=== PATIENT | female | born 1950 | race Caucasian/White ===

== ENCOUNTER 2022-01-24 12:07 | Emergency (ER) | payer MEDICARE, SELFPAY ==
[2022-01-24 12:15] VITALS: BP 140/61; PULSE 79; RESP 16; TEMP 36.9; O2SAT 98
--- NOTE | 2022-01-24 12:32 | ED.ALLEREA ---
HPI - Allergic Reaction General Chief complaint: Allergic Reaction Stated complaint: itchy on feet/hands Time Seen by Provider: 01/24/22 12:32 Source: patient Mode of arrival: ambulatory Limitations: no limitations History of Present Illness HPI narrative: 71-year-old female presented for complaint of lip swelling and bilateral cheek swelling, onset today. She endorses for about 5 days she has had intense itching to her hands and feet and about 4 days ago endorses tongue swelling and difficulty swallowing. She states at that time she took Benadryl and used her sleep apnea machine and symptoms resolved. But she endorses starting a new supplement, otherwise denies changes to soap, detergent, lotion or cream etc. Currently denies sob, wheezing, dizziness, nausea. Endorses hx latex allergy with similar symptoms in 2004. Related Data Home Medications Medication Instructions Recorded Confirmed albuterol sulfate 90 mcg/actuation 2 puff inhalation Q4-6H PRN 07/09/19 01/24/22 aerosol inhaler (ProAir HFA) Shortness Of Breath estradiol 0.01% (0.1 mg/gram) 1 gm vaginal WEEKLY 07/09/19 01/24/22 vaginal cream loratadine 10 mg tablet (Claritin) 10 mg PO DAILY 07/09/19 01/24/22 magnesium oxide 400 mg (241.3 mg 400 mg PO DAILY 07/09/19 01/24/22 magnesium) tablet (MagOx) vqmxhpgu-wcb-iage-FA-Ca carb-vit K 1 tablet PO DAILY 07/09/19 01/24/22 18 mg iron-400 mcg-500 mg tablet (One-A-Day Womens Formula) nebivolol 20 mg tablet (Bystolic) 20 mg PO DAILY 07/09/19 01/24/22 red yeast rice 600 mg capsule 600 mg PO DAILY 07/09/19 01/24/22 diltiazem HCl 240 mg 240 mg PO DAILY 07/10/19 01/24/22 capsule,extended release 24 hr (Cartia XT) telmisartan 80 mg tablet 80 mg PO DAILY 01/11/20 01/24/22 coenzyme Q10 75 mg capsule (Ultra 100 mg PO DAILY 05/05/20 01/24/22 CoQ10) potassium chloride 10 mEq 10 meq PO BID 05/05/20 01/24/22 capsule,extended release fluticasone fur. 100 mcg-umeclid 1 inh inhalation DAILY 08/21/21 01/24/22 62.5 mcg-vilant 25 mcg inhalat.powder (Trelegy Ellipta) fluticasone fur. 200 mcg-umeclid 1 ea inhalation DAILY 01/24/22 01/24/22 62.5 mcg-vilant 25 mcg inhalat.powder (Trelegy Ellipta) Allergies Allergy/AdvReac Type Severity Reaction Status Date / Time latex Allergy Severe SEVERE Verified 01/24/22 12:24 ITCHY, THEN AIRWAY DIFFICULTY, SWELLING propranolol [From Inderal LA] Allergy Severe bleeding Verified 01/24/22 12:24 Sulfa (Sulfonamide Allergy Severe BELLY PAIN Verified 01/24/22 12:24 Antibiotics) clarithromycin AdvReac Severe BEELLY PAIN Verified 01/24/22 12:24 MEPERIDINE HCL Allergy Severe N/V,HEADACH Uncoded 01/24/22 12:24 E MOXIFLOXACIN HCL Allergy Severe DIZZINESS Uncoded 01/24/22 12:24 TEGADERM Allergy Severe SKIN Uncoded 01/24/22 12:24 BREAKDOWN AND SCARRING OXYCODONE HCL AdvReac Severe IF Uncoded 01/24/22 12:24 TAKEN--NO RELIEF OF PAIN SYMPTOMS WHAT SO EVER Review of Systems Review of Systems: CONSTITUTIONAL: Denies body aches, fever, chills, or sweats. EYES: Denies visual changes, redness, or discharge. ENT: reports lip and facial swelling, Denies rhinorrhea, congestion, sore throat, or otalgia. CARDIOVASCULAR: Denies chest pain, palpitations, or edema. RESPIRATORY: Denies cough or dyspnea. GASTROINTESTINAL: Denies abdominal pain, nausea, vomiting, or diarrhea. GENITOURINARY: Denies dysuria or hematuria. SKIN: reports rash, itching PMFSH Past Medical History Medical History Breast implant removal status Swelling Family History Family History Sibling Family history of elevated blood lipids Mother Patient's mother is Family history of gastrointestinal disorder Family history of coronary artery disease Father Hypertension Family history of chronic obstructive pulmonary
[2022-01-24] MEDS: methylPREDNISolone SOD SUCC 125 MG VIAL IM (12:46)
== END 2022-01-24 13:05 | disposition home or self-care (01) ==
PROVIDERS: Emergency Provider Nurse Practitioner Family
DX: T78.3XXA Angioneurotic edema, initial encounter (principal); Z87.891 Personal history of nicotine dependence
CPT/HCPCS: 96372; 99213; G0463; J2930

== ENCOUNTER 2022-02-19 02:36 | Emergency (ER) | payer MEDICARE, SELFPAY ==
[2022-02-19] VITALS (16 sets, daily range): BP systolic 140–179; BP diastolic 60–84; PULSE 72–98; RESP 12–21; O2SAT 93–98
--- NOTE | ~2022-02-19 | XR_ITS ---
EXAMINATION: XR chest 1V portable DATE: 02/19/2022 03:10 INDICATION: Shortness of breath. TECHNIQUE: A single frontal view of the chest was obtained. COMPARISON: Chest 2 views 07/08/2014, CT abdomen and pelvis 01/26/2018 FINDINGS: There are airspace opacities in the mid and lower lung zones with a basilar predominance. T here are small pleural effusions. No pneumothorax. The heart size is normal. There are changes of pos terior fusion procedure in thoracolumbar spine. IMPRESSION: 1. Airspace opacities in the mid and lower lung zones, consistent with atelectasis versus pneumonia. 2. Small pleural effusions. Reviewed, dictated and finalized at location A. IMPRESSION: 1. Airspace opacities in the mid and lower lung zones, consistent with atelecta sis versus pneumonia. 2. Small pleural effusions.
[2022-02-19] MEDS: EPINEPHrine HCL INJ 1 MG/ML AMPUL 0.3 MG IM (02:47)
[2022-02-19] MEDS: FAMOTIDINE 20 MG/2 ML VIAL IV PUSH (02:47)
[2022-02-19] MEDS: diphenhydrAMINE HCl INJ 50 MG/ML VIAL IV PUSH (02:48)
[2022-02-19] MEDS: methylPREDNISolone SOD SUCC 125 MG VIAL IV PUSH (02:48)
[2022-02-19 03:02] LABS: Basophils Absolute Auto 0.1 K/mm3 (0.0-0.1); Basophils Percent Auto 1.1 % (0.2-1.2); Eosinophils Absolute Auto 0.4 K/mm3 (0-0.3); Eosinophils Percent Auto 5.7 % (0-4.4); Hematocrit 42.5 % (37.0-47.0); Hemoglobin 13.3 g/dL (12.0-15.0); Immature Granulocyte Absolute 0.03 K/mm3 (0.00-0.031); Immature Granulocyte Percent A 0.4 % (0-0.5); Lymphocytes Absolute Auto 2.25 K/mm3 (0.9-3.2); Lymphocytes Percent Auto 30.7 % (18.3-44.2); Mean Corpuscular HGB Conc 31.3 g/dl (32-36); Mean Corpuscular Hemoglobin 29.2 pg (26-34); Mean Corpuscular Volume 93.4 fl (80-100); Mean Platelet Volume 11.3 fl (7.4-10.4); Monocytes Absolute Auto 0.8 K/mm3 (0.1-0.6); Monocytes Percent Auto 11.4 % (2.6-8.5); Neutrophils Absolute Auto 3.7 K/mm3 (1.3-6.7); Neutrophils Percent Auto 50.7 % (45.5-73.1); Platelet Count Result 221 k/mm3 (150-375); Red Blood Count 4.55 M/mm3 (4.2-5.4); Red Cell Distribution Width 14.6 % (11.5-14.5); White Blood Count 7.3 K/mm3 (4.5-10.0)
[2022-02-19 03:12] LABS: Anion Gap 5 mmol/L (8-16); Blood Urea Nitrogen 20 mg/dL (7-17); Calcium 8.9 mg/dL (8.4-10.2); Carbon Dioxide 29 mmol/L (22-30); Chloride 105 mmol/L (98-107); Estimated Glomerular Filt Rate > 60; Glucose 113 mg/dL (65-110); Potassium 4.1 mmol/L (3.4-5.0); Sodium 139 mmol/L (137-145)
--- NOTE | 2022-02-19 03:34 | ED.ALLEREA ---
HPI - Allergic Reaction General Chief complaint: Allergic Reaction Stated complaint: allergic rxn Time Seen by Provider: 02/19/22 02:38 History of Present Illness HPI narrative: Patient is a 71-year-old female who presents ER with swelling of her tongue. She noticed it this evening for going to bed and woke up and it was much worse. She has difficulty talking due to its size. No difficulty breathing or swallowing. She reports over the last couple weeks she has been having pruritus of her arms. She is also been seen in an urgent care for angioedema of her lips. She thought it was related to a supplement she was taking to cleanse her liver. She has not been taking that medication and has also finished a prednisone treatment. Patient has not taken any treatment medications for her symptoms. Patient has been taking Pepcid and Benadryl for her itching after her previous diagnosis of angioedema. Related Data Home Medications Medication Instructions Recorded Confirmed albuterol sulfate 90 mcg/actuation 2 puff inhalation Q4-6H PRN 07/09/19 01/28/22 aerosol inhaler (ProAir HFA) Shortness Of Breath loratadine 10 mg tablet (Claritin) 10 mg PO DAILY 07/09/19 01/28/22 magnesium oxide 400 mg (241.3 mg 400 mg PO DAILY 07/09/19 01/28/22 magnesium) tablet (MagOx) ockfvltz-ozs-joiy-FA-Ca carb-vit K 1 tablet PO DAILY 07/09/19 01/28/22 18 mg iron-400 mcg-500 mg tablet (One-A-Day Womens Formula) nebivolol 20 mg tablet (Bystolic) 20 mg PO DAILY 07/09/19 01/28/22 diltiazem HCl 240 mg 240 mg PO DAILY 07/10/19 01/28/22 capsule,extended release 24 hr (Cartia XT) coenzyme Q10 75 mg capsule (Ultra 100 mg PO DAILY 05/05/20 01/28/22 CoQ10) potassium chloride 10 mEq 10 meq PO BID 05/05/20 01/28/22 capsule,extended release fluticasone fur. 200 mcg-umeclid 1 ea inhalation DAILY 01/24/22 01/28/22 62.5 mcg-vilant 25 mcg inhalat.powder (Trelegy Ellipta) Allergies Allergy/AdvReac Type Severity Reaction Status Date / Time latex Allergy Severe SEVERE Verified 01/28/22 09:43 ITCHY, THEN AIRWAY DIFFICULTY, SWELLING propranolol [From Inderal LA] Allergy Severe bleeding Verified 01/28/22 09:43 Sulfa (Sulfonamide Allergy Severe BELLY PAIN Verified 01/28/22 09:43 Antibiotics) clarithromycin AdvReac Severe BEELLY PAIN Verified 01/28/22 09:43 MEPERIDINE HCL Allergy Severe N/V,HEADACH Uncoded 01/28/22 09:43 E MOXIFLOXACIN HCL Allergy Severe DIZZINESS Uncoded 01/28/22 09:43 TEGADERM Allergy Severe SKIN Uncoded 01/28/22 09:43 BREAKDOWN AND SCARRING OXYCODONE HCL AdvReac Severe IF Uncoded 01/28/22 09:43 TAKEN--NO RELIEF OF PAIN SYMPTOMS WHAT SO EVER Review of Systems Review of Systems: All systems reviewed & are unremarkable except as noted in HPI and below Constitutional: Constitutional: Denies chills and Denies fever(s) ENT: Denies dysphagia, Denies nasal congestion and Denies sore throat Comments: Tongue swelling Cardiovascular: Cardiovascular: Denies chest pain, Denies rapid heart rate and Denies radiating jaw, neck or arm pain Respiratory: Respiratory: Denies cough, Denies dyspnea and Denies wheezing Gastrointestinal: Gastrointestinal: Denies abdominal pain, Denies nausea and Denies vomiting Integumentary/Breasts: Skin/Breast: Reports pruritus, Denies erythema, Denies rash and Denies skin ulcer PMFSH Past Medical History Medical History (Updated 02/19/22 @ 06:34 by Kendall Davey MD) Allergic rhinitis, unspecified Breast implant removal status COPD (chronic obstructive pulmonary disease) Essential (primary) hypertension Gastro-esophageal reflux disease without esophagitis Hx of breast cancer Malignant neoplasm of endometrium Other nonrheumatic mitral valve disorders Sleep apnea, unspecified Swelling Surgical History Surgical History (Updated 02/19/22 @ 03:37 by Kendall Davey MD) Status post total right knee replacement
== END 2022-02-19 07:04 | disposition home or self-care (01) ==
PROVIDERS: Emergency Provider Emergency Medicine; PCP Internal Medicine
DX: T78.3XXA Angioneurotic edema, initial encounter (principal); J44.9 Chronic obstructive pulmonary disease, unspecified; I10 Essential (primary) hypertension; I34.8 Other nonrheumatic mitral valve disorders; K21.9 Gastro-esophageal reflux disease without esophagitis; G47.30 Sleep apnea, unspecified; Z85.3 Personal history of malignant neoplasm of breast; Z85.44 Personal history of malignant neoplasm of other female genital organs; Z96.651 Presence of right artificial knee joint; Z87.891 Personal history of nicotine dependence
CPT/HCPCS: 36415; 71045; 80048; 85025; 96372; 96374; 96375; 99284; J0171; J1200; J2930

== ENCOUNTER 2022-05-24 11:13 | Emergency (ER) | payer MEDICARE, SELFPAY ==
[2022-05-24 11:24] VITALS: BP 144/87; PULSE 70; RESP 18; TEMP 36.4; O2SAT 100
--- NOTE | 2022-05-24 11:44 | ED.FEMALEGU ---
HPI - Female Genitourinary General Chief complaint: Upper Respiratory Infection Stated complaint: UTI Time Seen by Provider: 05/24/22 11:44 Source: patient, RN notes reviewed and old records reviewed Mode of arrival: ambulatory Limitations: no limitations History of Present Illness HPI Narrative: 71-year-old female presents to the [facility] with complaints of about a week of tingling low back pain that is different than her normal, increased of urgency more than her normal and burning with urination. Took Azo yesterday. Denies any chest pain or abdominal pain. Denies fevers. Denies incontinence Related Data Home Medications Medication Instructions Recorded Confirmed albuterol sulfate 90 mcg/actuation 2 puff inhalation Q4-6H PRN 07/09/19 05/24/22 aerosol inhaler (ProAir HFA) Shortness Of Breath loratadine 10 mg tablet (Claritin) 10 mg PO DAILY 07/09/19 05/24/22 magnesium oxide 400 mg (241.3 mg 400 mg PO DAILY 07/09/19 05/24/22 magnesium) tablet (MagOx) sfidmwxq-shk-ifgl-FA-Ca carb-vit K 1 tablet PO DAILY 07/09/19 05/24/22 18 mg iron-400 mcg-500 mg tablet (One-A-Day Womens Formula) nebivolol 20 mg tablet (Bystolic) 20 mg PO DAILY 07/09/19 05/24/22 diltiazem HCl 240 mg 240 mg PO DAILY 07/10/19 05/24/22 capsule,extended release 24 hr (Cartia XT) coenzyme Q10 75 mg capsule (Ultra 100 mg PO DAILY 05/05/20 05/24/22 CoQ10) potassium chloride 10 mEq 10 meq PO BID 05/05/20 05/24/22 capsule,extended release fluticasone fur. 200 mcg-umeclid 1 ea inhalation DAILY 01/24/22 05/24/22 62.5 mcg-vilant 25 mcg inhalat.powder (Trelegy Ellipta) Allergies Allergy/AdvReac Type Severity Reaction Status Date / Time latex Allergy Severe SEVERE Verified 05/24/22 11:29 ITCHY, THEN AIRWAY DIFFICULTY, SWELLING propranolol [From Inderal LA] Allergy Severe bleeding Verified 05/24/22 11:29 Sulfa (Sulfonamide Allergy Severe BELLY PAIN Verified 05/24/22 11:29 Antibiotics) telmisartan Allergy Severe Swelling Verified 05/24/22 11:29 of Lip/Tongue/Throat clarithromycin AdvReac Severe BEELLY PAIN Verified 05/24/22 11:29 MEPERIDINE HCL Allergy Severe N/V,HEADACH Uncoded 05/24/22 11:29 E MOXIFLOXACIN HCL Allergy Severe DIZZINESS Uncoded 05/24/22 11:29 TEGADERM Allergy Severe SKIN Uncoded 05/24/22 11:29 BREAKDOWN AND SCARRING OXYCODONE HCL AdvReac Severe IF Uncoded 05/24/22 11:29 TAKEN--NO RELIEF OF PAIN SYMPTOMS WHAT SO EVER Review of Systems Review of Systems: All systems reviewed & are unremarkable except as noted in HPI and below Constitutional: Constitutional: Reports no additional constitutional complaints, Denies chills and Denies fatigue Eyes: Eyes: Reports no additional eye complaints ENT: Reports system reviewed and no additional complaints, except as documented Cardiovascular: Cardiovascular: Reports no additional cardiovascular complaints Respiratory: Respiratory: Reports no additional respiratory complaints Gastrointestinal: Gastrointestinal: Reports no additional gastrointestinal complaints, Denies abdominal pain, Denies diarrhea, Denies nausea and Denies vomiting Genitourinary: Genitourinary: Reports as per HPI (Urinary frequency, cloudy urine), Reports hematuria, Reports dysuria, Denies flank pain, Denies urinary incontinence, Reports urinary urgency and Denies vaginal discharge Musculoskeletal: Musculoskeletal: Reports no additional musculoskeletal complaints and Denies back pain Integumentary/Breasts: Skin/Breast: Reports system reviewed and no additional complaints, except as docu Neurologic: Reports system reviewed and no additional complaints, except as documented Psychiatric: Psychiatric: Reports no additional psychiatric complaints Endocrine: Endocrine: Denies fatigue Allergic/Immunologic: Allergic/Immunologic: Reports no additional allergic/immunologic complaints PMFSH Past Medical History Medi
== END 2022-05-24 12:19 | disposition home or self-care (01) ==
PROVIDERS: Emergency Provider Nurse Practitioner; PCP Internal Medicine
DX: N39.0 Urinary tract infection, site not specified (principal); Z87.891 Personal history of nicotine dependence; J44.9 Chronic obstructive pulmonary disease, unspecified; I10 Essential (primary) hypertension; K21.9 Gastro-esophageal reflux disease without esophagitis; Z85.3 Personal history of malignant neoplasm of breast; Z96.651 Presence of right artificial knee joint; Z85.42 Personal history of malignant neoplasm of other parts of uterus
CPT/HCPCS: 81003; 87077; 87086; 87186; 99213; G0463

== ENCOUNTER 2022-06-07 12:58 | Outpatient (CLI) | payer MEDICARE, SELFPAY ==
[2022-06-07 13:52] LABS: Appearance Urine Clear (Clear); Bilirubin Urine Negative (Negative); Blood Urine Negative (Negative); Color Urine Yellow (Yellow); Glucose Urine UA Negative (Negative); Ketones Urine Negative (Negative); Leukocyte Esterase Ur Trace LEU/UL (Negative); Nitrate Urine Negative (Negative); Protein Urine Negative (Negative); Urobilinogen Urine 0.2 mg/dL (<2.0); pH Urine 5.5 (5.0-9.0)
[2022-06-07 14:08] LABS: Mucus Urine Rare /lpf; RBC Urine 0-2 /hpf (0-2); Squamous Epithelial Cell Urine Few /hpf (Few); WBC Urine 0-3 /hpf
[2022-06-07 14:15] LABS: Add Urine Microscopic? YES
== END 2022-06-07 12:59 | disposition home or self-care (01) ==
LOC: ANHLAB 13:00
PROVIDERS: PCP Internal Medicine; Visit Provider Internal Medicine
DX: R30.0 Dysuria (principal)
CPT/HCPCS: 81001

== ENCOUNTER 2022-08-30 08:26 | Emergency (ER) | payer MEDICARE, SELFPAY ==
--- NOTE | 2022-08-30 08:36 | ED.FEMALEGU ---
HPI - Female Genitourinary General Chief complaint: Urogenital-Female Stated complaint: UTI Time Seen by Provider: 08/30/22 08:41 Source: patient, RN notes reviewed and old records reviewed Mode of arrival: ambulatory Limitations: no limitations History of Present Illness HPI Narrative: 71-year-old female presents to the [facility] with complaints of urinary symptoms. Patient reports burning with urination that started last night. Noticed some blood in her urine as well as increased frequency. Denies chest pain or abdominal pain. No CVA tenderness. Denies fevers. Patient unable to take Cipro/Levaquin due to a history of tendon rupture Patient states that she did fine with the Bactrim last time in May. MD elicited complaint: UTI Onset (ago): hour(s) (12) Patient : No Related Data Home Medications Medication Instructions Recorded Confirmed albuterol sulfate 90 mcg/actuation 2 puff inhalation Q4-6H PRN 07/09/19 08/30/22 aerosol inhaler (ProAir HFA) Shortness Of Breath loratadine 10 mg tablet (Claritin) 10 mg PO DAILY 07/09/19 08/30/22 magnesium oxide 400 mg (241.3 mg 400 mg PO DAILY 07/09/19 08/30/22 magnesium) tablet (MagOx) yrivbiru-zcx-mubr-FA-Ca carb-vit K 1 tablet PO DAILY 07/09/19 08/30/22 18 mg iron-400 mcg-500 mg tablet (One-A-Day Womens Formula) nebivolol 20 mg tablet (Bystolic) 20 mg PO DAILY 07/09/19 08/30/22 diltiazem HCl 240 mg 240 mg PO DAILY 07/10/19 08/30/22 capsule,extended release 24 hr (Cartia XT) coenzyme Q10 75 mg capsule (Ultra 100 mg PO DAILY 05/05/20 08/30/22 CoQ10) potassium chloride 10 mEq 10 meq PO BID 05/05/20 08/30/22 capsule,extended release fluticasone fur. 200 mcg-umeclid 1 ea inhalation DAILY 01/24/22 08/30/22 62.5 mcg-vilant 25 mcg inhalat.powder (Trelegy Ellipta) Allergies Allergy/AdvReac Type Severity Reaction Status Date / Time latex Allergy Severe SEVERE Verified 08/30/22 08:33 ITCHY, THEN AIRWAY DIFFICULTY, SWELLING propranolol [From Inderal LA] Allergy Severe bleeding Verified 08/30/22 08:33 telmisartan Allergy Severe Swelling Verified 08/30/22 08:33 of Lip/Tongue/Throat clarithromycin AdvReac Severe BEELLY PAIN Verified 08/30/22 08:33 MEPERIDINE HCL Allergy Severe N/V,HEADACH Uncoded 08/30/22 08:33 E MOXIFLOXACIN HCL Allergy Severe DIZZINESS Uncoded 08/30/22 08:33 TEGADERM Allergy Severe SKIN Uncoded 08/30/22 08:33 BREAKDOWN AND SCARRING OXYCODONE HCL AdvReac Severe IF Uncoded 08/30/22 08:33 TAKEN--NO RELIEF OF PAIN SYMPTOMS WHAT SO EVER Review of Systems Review of Systems: All systems reviewed & are unremarkable except as noted in HPI and below Constitutional: Constitutional: Reports no additional constitutional complaints Eyes: Eyes: Reports no additional eye complaints ENT: Reports system reviewed and no additional complaints, except as documented Cardiovascular: Cardiovascular: Reports no additional cardiovascular complaints, Denies chest pain and Denies dyspnea Respiratory: Respiratory: Reports no additional respiratory complaints, Denies chest congestion, Denies cough and Denies dyspnea Gastrointestinal: Gastrointestinal: Reports no additional gastrointestinal complaints, Denies abdominal pain, Denies nausea and Denies vomiting Genitourinary: Genitourinary: Reports as per HPI (Urinary frequency), Reports dysuria, Denies pelvic pain, Denies flank pain and Denies urinary incontinence Musculoskeletal: Musculoskeletal: Reports no additional musculoskeletal complaints Integumentary/Breasts: Skin/Breast: Reports system reviewed and no additional complaints, except as docu Neurologic: Reports system reviewed and no additional complaints, except as documented Psychiatric: Psychiatric: Reports no additional psychiatric complaints Allergic/Immunologic: Allergic/Immunologic: Reports no additional allergic/immunologic complaints
[2022-08-30 08:43] VITALS: BP 151/70; PULSE 75; RESP 16; TEMP 36.7; O2SAT 98
== END 2022-08-30 08:57 | disposition home or self-care (01) ==
PROVIDERS: Emergency Provider Nurse Practitioner; PCP Internal Medicine
DX: N39.0 Urinary tract infection, site not specified (principal); J44.9 Chronic obstructive pulmonary disease, unspecified; I10 Essential (primary) hypertension; K21.9 Gastro-esophageal reflux disease without esophagitis; Z85.3 Personal history of malignant neoplasm of breast; Z85.42 Personal history of malignant neoplasm of other parts of uterus; Z96.651 Presence of right artificial knee joint
CPT/HCPCS: 81003; 87086; 87088; 99213; G0463

== ENCOUNTER 2023-04-12 14:45 | Outpatient (CLI) | payer MEDICARE, SELFPAY ==
[2023-04-12 15:24] LABS: Appearance Urine Turbid (Clear); Bacteria Urine 3+ /hpf; Bilirubin Urine Negative (Negative); Blood Urine 3+ (Negative); Color Urine Dark Yellow (Yellow); Glucose Urine UA Negative (Negative); Ketones Urine Negative (Negative); Leukocyte Esterase Ur 3+ LEU/UL (Negative); Nitrate Urine Negative (Negative); Non Pathogenic Casts 0-2; Protein Urine 1+ mg/dL (Negative); RBC Urine >100 /hpf (0-2); Specific Grav Ur 1.018 (1.001-1.035); Squamous Epithelial Cell Urine Moderate /hpf (Few); WBC Urine >100 /hpf
[2023-04-12 15:51] LABS: Add Urine Microscopic? YES
== END 2023-04-12 14:46 | disposition home or self-care (01) ==
PROVIDERS: PCP Internal Medicine; Visit Provider Internal Medicine
DX: R31.9 Hematuria, unspecified (principal)
CPT/HCPCS: 81001; 87086; 87088

== ENCOUNTER 2024-06-11 14:22 | Outpatient (CLI) | payer MEDICARE, SELFPAY ==
--- NOTE | ~2024-06-11 | US_ITS ---
EXAMINATION: US venous doppler [facility] DATE: 06/11/2024 15:11 INDICATION: Lower limb localized edema. Lower limb pain and swelling. TECHNIQUE: Grayscale ultrasound images without and with compression and Doppler ultrasound images of the bilateral lower extremity veins were obtained. COMPARISON: None. FINDINGS: The visualized portions of right common femoral vein, profunda (deep) femoral vein, femoral vein, pop liteal vein, peroneal veins, and greater saphenous vein outflow are patent. There is thrombus in the right posterior tibial veins. The visualized portions of left common femoral vein, profunda femoral vein, peroneal veins, posterior tibial veins, and greater saphenous vein outflow are patent. There is thrombus in the left femoral v ein, popliteal vein, and gastrocnemius veins. IMPRESSION: 1. Deep vein thrombosis involving the right posterior tibial, left femoral, left popliteal, and left gastrocnemius veins. Reviewed, dictated and finalized at location A. R BRAKE OPERATOR IMPRESSION: 1. Deep vein thrombosis involving the right posterior tibial, left femoral, le ft popliteal, and left gastrocnemius veins.
--- NOTE | ~2024-06-11 | XR_ITS ---
Right foot Technique: AP, oblique, and lateral views were obtained. Clinical History: Pain COMPARISON: 03/07/2013 Findings: There is an acute fracture of the fifth metatarsal head, mildly displaced and probably mild ly comminuted.. There is stable orthopedic fusion across the first tarsometatarsal joint and Lisfranc joint region. Stable orthopedic screws transfixing the subtalar joint. There are mild degenerative c hanges of the talonavicular and naviculocuneiform articulations. There is mild degenerative change of the first MTP joint. Soft tissues are unremarkable. Impression: Acute, comminuted fracture of the fifth metatarsal head. Stable orthopedic fusions of the first TMT joint/Lisfranc joint region and subtalar joint. Reviewed, dictated and finalized at location . ENTICE INSTRUMENT TECHNICIAN Impression: Acute, comminuted fracture of the fifth metatarsal head. Stable orthopedic fusions of the first TMT joint/Lisfranc joint region and subt alar joint.
== END 2024-06-11 14:23 | disposition home or self-care (01) ==
PROVIDERS: PCP Internal Medicine; Visit Provider Internal Medicine
DX: I82.442 Acute embolism and thrombosis of left tibial vein (principal); I82.412 Acute embolism and thrombosis of left femoral vein; I82.432 Acute embolism and thrombosis of left popliteal vein; I82.462 Acute embolism and thrombosis of left calf muscular vein; S92.351A Displaced fracture of fifth metatarsal bone, right foot, initial encounter for closed fracture; X58.XXXA Exposure to other specified factors, initial encounter; Z98.1 Arthrodesis status
CPT/HCPCS: 73630; 93970

== ENCOUNTER 2024-07-25 13:06 | Outpatient (CLI) | payer MEDICARE, SELFPAY ==
--- NOTE | ~2024-07-25 | XR_ITS ---
XR chest 2V Ordering provider: Gerardo Dioxn DO History: 73 years Female with . J18.9 - Pneumonia, unspecified organism . Comparison: None. FINDINGS: MEDIASTINUM: The cardiac silhouette is moderately enlarged. Congestive connie. LUNGS: No effusions or pneumothorax. Opacification the lung bases seen. Bilateral interstitial thickening. Underlying emphysematous change s. OTHER: No free air under the diaphragm. Postoperative changes in the spine. IMPRESSION: Bibasilar atelectasis versus pneumonia. Cardiomegaly with cardiac decompensation and pulmonary edema. Clinical correlation advised. Reviewed, dictated and finalized at location A. SHER DIAL IMPRESSION: Bibasilar atelectasis versus pneumonia. Cardiomegaly with cardiac decompensation and pulmonary edema. Clinical correlat ion advised.
== END 2024-07-25 13:07 | disposition home or self-care (01) ==
PROVIDERS: PCP Internal Medicine; Visit Provider Internal Medicine
DX: J18.9 Pneumonia, unspecified organism (principal); I51.7 Cardiomegaly; I51.89 Other ill-defined heart diseases; J81.1 Chronic pulmonary edema
CPT/HCPCS: 71046

== ENCOUNTER 2024-11-30 15:09 | Outpatient (CLI) | payer MEDICARE, SELFPAY ==
--- NOTE | ~2024-11-30 | US_ITS ---
BILATERAL LOWER EXTREMITY VENOUS ULTRASOUND Ordering provider: Mango Martel APRN History: . I82.403 - Acute embolism and thrombosis of unspecified de... . Comparison: June 11, 2024 FINDINGS: RIGHT LOWER EXTREMITY VEINS: --COMMON FEMORAL: Patent and free of thrombus. Normal compressibility, phasic flow and augmentation. --PROXIMAL SUPERFICIAL FEMORAL: Patent and free of thrombus. Normal compressibility, phasic flow and augmentation. --DISTAL SUPERFICIAL FEMORAL: Patent and free of thrombus. Normal compressibility, phasic flow and au gmentation. --POPLITEAL: Patent and free of thrombus. Normal compressibility, phasic flow and augmentation. --POSTERIOR TIBIAL: Patent and free of thrombus. Normal compressibility, phasic flow and augmentation . LEFT LOWER EXTREMITY VEINS: --COMMON FEMORAL: Patent and free of thrombus. Normal compressibility, phasic flow and augmentation. --PROXIMAL SUPERFICIAL FEMORAL: Thrombosed. --DISTAL SUPERFICIAL FEMORAL: Thrombosed. --POPLITEAL: Patent and free of thrombus. Normal compressibility, phasic flow and augmentation. --POSTERIOR TIBIAL: Patent and free of thrombus. Normal compressibility, phasic flow and augmentation . --Peroneal: Thrombosis. IMPRESSION: Left lower extremity DVT. Dr. Dixon was notified with the result of the patient at 4:30 PM on November 30, 2024. Reviewed, dictated and finalized at location A. IMPRESSION: Left lower extremity DVT. Dr. Dixon was notified with the result of the patient at 4:30 PM on November 30 025.
--- OUTSIDE RECORDS SUMMARY | 2024-11-30 15:12 | XMS_ITS | Clinical Summary ---
Author Organization [facility] Address [address] [place] [id number] Care Team Providers Care Technical Aide Name Role Phone Gerardo Dixon DO Primary Care Provider [phone] Social History Tobacco Use Types Packs/Day Years Used Date Smoking Tobacco: Never Assessed Comments Unknown Sex and Gender Information Value Date Recorded Sex Assigned at Not on file Legal Sex Female 4:59 PM CDT Gender Identity Not on file Sexual Orientation Not on file Plan of Treatment Health Maintenance Due Date Last Done Comments Colorectal Cancer Screening Colonoscopy (10 Years) 1950 Hepatitis C 1968 DTaP, Tdap and Td Vaccines ( 1 - Tdap) 10/15/1994 10/14/1994 Pneumococcal Vaccine: 50+ Ye ars (1 of 1 - PCV) 2000 Zoster Vaccines (1 of 2) 2000 Annual Medicare Wellness Visit 10/14/2015 Dexa Scan (General) 10/14/2015 Mammogram Screening 10/30/2023 10/29/2021 COVID-19 Vaccine ( - 2023-2 5 season) 2024 PHQ-2 (Physician [place]) 08/08/2024 RSV Immunization or 60+ Years (1 - 1-dose 75+ series) 2025 Meningococcal B Vaccine Aged Out No l onger eligible based on patient's age to complete this topic Meningococcal Vaccine Aged Out No rikki [place] eligible based on patient's age to complete this topic RSV Immunizations Under 20 Months Aged Out No longer eligible based on patient's age to complete this topic Insurance [employer] Care Teams Technical Aide Relationship Specialty Start Date End Date Gerardo Dixon DO [address] [address] PCP - General INTERNAL MEDICINE 06/13/24
--- OUTSIDE RECORDS SUMMARY | 2024-11-30 15:13 | XMS_ITS | Encounter Summary ---
Author Organization [facility] Address [address] [place] [address] Care Team Providers Care Supervisor Pipelines Name Role Phone Sofia Roper MD Unavailable [phone] Fabian Lizama MD Unavailable [phone] Gerardo Dixon DO Primary Care Provider [phone] Giorgi Beyer MD Unavailable [phone] Lore Richardson Unavailable [phone] Encounter Details Date Type Department Care Team (Late st Contact Info) Description 06/16/2020 Telephone [facility] [address] [place] [address] Kwaku Najera, RT Social History Tobacco Use Types Packs/Day Years Used Date Smoking Tobacco: Never Smokeless Tobacco: Never Alcohol Use Standard Drinks/Week Comments Yes 0 (1 standard drink = 0.6 oz pur e alcohol) Rare social occasion Comments No Sex and Gender Information Value Date Recorded Sex Assigned at Not on file Legal Sex Female 2:11 AM [employer] Gender Identity Female 08/26/2021 10:29 AM [employer] Sexual Orientation Not on file documented as of this encounter Plan of Treatment Not on file documented as of this encounter Visit Diagnoses Not on filedocumented in this encounter Additional Health Concerns Infection Onset Date Last Indicated Resolved Time C. difficile suspected 09/28/2024 09/28/202409/29 3:05 AM [employer] [place] documented as of this encounter Care Teams Supervisor Pipelines Relationship Specialty Start Date End Date Gerardo Dixon DO [address] [address] PCP - General Internal Medicine 05/09/24 Sofia Roper MD Urologist Urology 10/30/18 Fabian Lizama MD Referring Physician Pulmonary Disease 04/01/20 Giorgi Beyer MD [address] [address] Consulting Physician Cardiovascular Disease 08/30/24 Lore Richardson PA [address] [place] [id number] Orthopedic Surgery 09/11/24 documented as of this encounter
--- OUTSIDE RECORDS SUMMARY | 2024-11-30 15:13 | XMS_ITS | Encounter Summary ---
Author Organization [facility] Healthcare Address [address] [place] [address] Care Team Providers Care [employer] Name Role Phone Sofia Roper MD Unavailable [phone] Fabian Lizama MD Unavailable [phone] Gerardo Dixon DO Primary Care Provider [phone] Giorgi Beyer MD Unavailable [phone] Lore Richardson Unavailable [phone] Reason for Visit * Reason Comments Leg Swelling * Auth/Cert (Routine) Specialty Diagnoses / Procedures Referred By Annie t Referred To Contact Referral ID Status Reason Start Date Expiration Date Visits Re quested Visits Authorized [id number] 1 1 Encounter Details Date Type Department Care Team (Latest Contact Info) Description 11/15/2024 12:00 PM CDT Home Care Visit [address] [address] [address] [place] [address] [place] [address] [address] SN OASIS RECERTIFICATION Social History Tobacco Use Types Packs/Day Years Used Date Smoking Tobacco: Never Smokeless Tobacco: Never Alcohol Use Standard Drinks/Week Comments Yes 0 (1 standard drink = 0.6 oz pur e alcohol) Rare social occasion OASIS D0700: Social Isolation Answer Da te Recorded Frequency of experiencing loneliness or isolatio n Rarely 11/15/2024 OASIS A1250: Transportation Answer Date Recorded Lack of Transportation (Medical) No 09/18/2024 Lack of Transportation (Non-Medical) No 09/18/2024 Patient Unable or Declines to Respond No 09/18/2024 OASIS B1300: Health Literacy Answer Taran e Recorded Frequency of needing help to read materials from doctor or pharmacy Never 09/18/2024 [facility] Utilities Answer Date Recorded In the past 12 months has th e electric, gas, oil, or water company threatened to shut off services in your home? No 09/12/2024 Social Connection and Isolation Panel [NHANES] A nswer Date Recorded In a typical week, how many times do you talk on the phone with family, friends, or neighbors? Three times a week 09/12/19 How often do you get togethe r with friends or relatives? Three times a week 09/12/2024 How often do you attend chur ch or spiritism services? 1 to 4 times per year 09/12/2024 Do you belong to any clubs o r organizations such as holiness groups, unions, fraternal or athletic groups, or school groups? No 09/12/2024 How often do you attend meet ings of the clubs or organizations you belong to? Never 09/12/2024 Are you , , di vorced, , never , or living with a partner? 09/12/2024 AUDIT-C Answer Date Recorded Q1: How often do you have a drink containing alc ohol? Monthly or less 09/11/2024 Q2: How many drinks containi ng alcohol do you have on a typical day when you are drinking? 1 or 2 09/11/2024 Q3: How often do you have si x or more drinks on one occasion? Never 09/11/2024 Overall Financial Resource Strain (CARDIA) Answe r Date Recorded How hard is it for you to pa y for the very basics like food, housing, medical care, and heating? Not hard at all 09/12/2024 Hunger Vital Sign Answer Date Recorded Within the past 12 months, y ou worried that your food would run out before you got the money to buy more. Never true 09/12/19 25 Within the past 12 months, t he food you bought just didn't last and you didn't have money to get more. Never true 09/12/2024 PRAPARE - Transportation Answer Date Re corded In the past 12 months, has l ack of transportation kept you from medical appointments or from getting medications? No 12/2024 In the past 12 months, has l ack of transportation kept you from meetings, work, or from getting things needed for daily living? No 09/12/2024 Housing Stability Vital Sign Answer Taran e Recorded In the last 12 months, was t here a time when you were not able to pay the mortgage or rent on time? No 09/12/2024 In the past 12 months, how m any times have you moved where you were living? 0 09/12/2024 [facility] were you [facility] or living in a custodial (including now)? No 09/12/2024 Personal Safety Answer Date Recorded Have you ever been in or are you currently in a harmful physical or emotional relationship or is someone making you feel afraid or unsafe? Denies 09/28/2024 Comments No Sex and Gender Information Value Date Recorded Sex Assigned at Not on file Legal Sex Female 2:11 AM PHONE MANAGER Gender Identity Female 08/26/2021 10:29 AM PHONE MANAGER Sexual Orientation Not on file documented as of this encounter Last Filed Vital Signs Vital Sign Reading Time Taken Comments Blood Pressure 150/90 11/15/2024 11:40 AM CDT Pulse 67 11/15/2024 11:40 AM CDT Temperature 36.2 C (97.2 F) 11/15/2024 11:40 AM CDT Respiratory Rate 20 11/15/2024 11:40 AM CDT Oxygen Saturation 99% 11/15/2024 11:40 AM CDT Inhaled Oxygen Concentration - - Weight 117.9 kg (260 lb) 11/15/2024 11:40 AM CDT Height - - Body Mass Index 43.27 11/01/2024 3:24 PM CDT documented in this encounter Miscellaneous Notes * Home Health/Infusion [facility] - Chana Morales, RN - 11/15/2024 11:18 AM CDT SITUATION Focus of Care: rt foot wound with hx osteomyelitis Caregivers available: Spouse lives in home BACKGROUND Pertinent Medical History/Hospitalizations: history of osteomyelitis of right foot - s/p I/D requiring IV antibiotics and wound care. Rt foot callus had been debrided several times by orthopedic. Referred to wound care clinic and requires wound care to rt foot 3x/week Prior Level of Functioning: Dependent for some ADLs, IADLs Current Living Conditions/Safety Hazards: Lives at home with spouse ASSESSMENT Abnormal assessment findings: Rt foot wounds x2 at 5th metatarsal base (lateral and plantar). Medication Issues: none Re-hospitalization risk: Low Barriers to care/social drivers: None noted RECOMMENDATIONS POC confirmed with Dr. Dixon Plan for my discipline: 3w8 Other disciplines ordered/recommended: none at this time Supply/HME/equipment needs or issues: none Follow ups needed: none noted * Quality Review - Julisa Alejandro - 11/15/2024 11:18 AM CDT M1810 - Dress Upper Body 1- some help 2- needs assist Changed from 1 to 2. Per ADL assessment patient requires stand by assist for upper body dressing. According to OASIS guidance, if patient requires standby assistance (a magazine designer) to dress safely or requires verbal cueing/reminders due to physical/ cognitive/environmental barriers to complete task safely, then Code 2. M1850 - Transferring 1- able w/ min assist 2- unable to transfer self Changed from 1 to 2. Per Musculoskeletal assessment patient requires supervision for ambulation and minimum assist for transfers.According to OASIS guidance, if patient needs an assisted device AND minimal human assistance due to physical/cognitive impairments to transfer safely, then Code 2. M1860 - Ambulation 2- w/ two hand device 3- only with supervision Changed from 2 to 3. Per Musculoskeletal assessment patient requires supervision for ambulation and minimum assist for transfers. According to OASIS guidance, if patient requires continuous supervision/assistance to ambulate safely due to physical/emotional impairments, then Code 3. M1033 - Risk for Hospitalization 7-Taking 5+ meds 5-Decline in mental/emotional/behavioral status;7-Taking 5+ meds Add Response 5. Patient has a cognitive/behavioral/emotional diagnoses/condition of Anxiety and Depression, although it's not clear if there has been a decline. If the patient has had a decline in this diagnosis, they are more likely to experience rehospitalization; and Response 5 would be appropriate. * Quality Review - Chana Morales RN - 11/15/2024 11:18 AM CDT Reviewed Quality Review note and I approve the recommended changes. * Home Health Plan for Next Visit - Chana Morales RN - 11/15/2024 11:18 AM CDT Reason for today's visit [place] recert, wound care, infection prevention education Discuss plan of care is unchanged with patient Discharge planning when goals met and skilled care services no longer needed Plan for next visit wound care, infection prevention education documented in this encounter Plan of Treatment Not on file documented as of this encounter Visit Diagnoses Not on filedocumented in this encounter Home Health Visit - Care Plan Visit Details Visit Type -SN OASIS Recerti fication Discipline -Correction Problems Problem Description Start Date Status Goals Interve ntions Medications Disciplines: Correction Management of IV Medications 09/18/2024 Active - 1 problem intervention scheduled/documen sushma in this visit Pressure Prevention Disciplines: Skilled Disciplines Pressure Prevention 09/18/2024 Active 1 goal linked to scheduled/documen sushma intervention 1 goal intervention scheduled/documen sushma in this visit Monitor patient's vital signs every home health visit Disciplines: Skilled Disciplines, SN, PT, OT, PHOTOGRAPHY COLORIST, CASHIER AND WAITER/WAITRESS Monitor patient's vital signs every home health visit. 09/18/2024 Active 1 goal linked to scheduled/documen sushma intervention 1 goal intervention scheduled/documen sushma in this visit Multidisciplinar y Case Conference Disciplines: Skilled Disciplines Concurrently discusses plan of treatment and coordinate patient centered care 09/18/2024 Active 1 goal linked to scheduled/documen sushma intervention Infection Prevention Disciplines: Skilled Disciplines Infection Prevention 09/18/2024 Active 1 goal linked to scheduled/documen sushma intervention 1 goal intervention scheduled/documen sushma in this visit Pain Disciplines: Core Disciplines Alteration in comfort 09/18/2024 Active 1 goal linked to scheduled/documen sushma intervention 1 goal intervention scheduled/documen sushma in this visit Fall Precautions/Safe ty Concerns Disciplines: Skilled Disciplines Fall precautions and general safety 09/18/2024 Active 1 goal linked to scheduled/documen sushma intervention 1 goal intervention scheduled/documen sushma in this visit Wound Education and Management Disciplines: Core Disciplines Knowledge deficit related to wound management and risk of infection. 10/02/2024 Active 1 goal linked to scheduled/documen sushma intervention 1 goal intervention scheduled/documen sushma in this visit Wound Care Disciplines: Core Disciplines, Skilled Disciplines Wound care needed #1 rt dorsal foot 10/02/2024 Active 1 goal linked to scheduled/documen sushma intervention 1 problem intervention scheduled/documen sushma in this visit Wound Care Disciplines: Core Disciplines Wound care needed #4 rt plantar foot, 5th metatarsal base 11/15/2024 Active 1 goal linked to scheduled/documen sushma intervention 1 goal intervention scheduled/documen sushma in this visit Goals Goal Associated Problem Outcome Goal Met? Visit Notes Prevent development of pressure injuries Description: detention goal: The patient will maintain intact skin and avoid the development of pressure injuries within 6 weeks Short term goal: The patient/caregiver will understand and adhere to pressure prevention interventions within 3 weeks Pressure Prevention Progressing No Measure vital signs during every home health visit during episode of care Description: Home caretaker resort to measure vital signs during every home health visit during episode of care. Monitor patient's vital signs every home health visit Progressing No Care team will coordinate care Description: Care team will coordinate care centered on patient needs throughout the episode of care. Multidisciplinary Case Conference Progressing No Verbalize signs of infection Description: Patient/caregiver will demonstrate knowledge of infection prevention strategies by verbalizing signs and symptoms of infection. Infection Prevention Progressing No Report that pain has been reduced or controlled Description: Patient/caregiver/family will verbalize satisfaction with the patients level of pain and symptom control. Pain Progressing No Demonstrate fall and safety precautions Description: Patient/caregiver maintains safe home environment as evidenced by remaining free from falls, injury due to falls, demonstrating safety precautions, and identifying strategies to reduce falls by 10/16/24 Fall Precautions/Safety Concerns Progressing No Knowledgeable of Wound Management Description: Patient/caregiver will be knowledgeable on management of wound and when to seek medical attention as evidenced by progressive wound healing and patient/caregiver ability to verbalize signs and symptoms to report to physician or Home Health Agency. Patient will remain free of infection and able to recognize signs of infection as long as alteration in skin integrity exists or until patient is discharged from home health services. Wound Education and Management Progressing No Progression towards healing Description: Wound #1 rt dorsal foot show progression towards healing by 11/01/24. Wound Care Progressing No Progression towards healing Description: Wound #4 rt plantar foot, metatarsal base show progression towards healing by 12/15/24 Wound Care Progressing No Interventions Intervention Associated Problem/Goal Status Variance Visit Notes Instruct on Medication Management Description: Instruct patient/caregiver in medication administration, purpose, dosages, preparation, scheduling, side effects, food/drug interactions, storage, drug allergies, and potential complications. TPN: Instruct patient/caregiver on the proper technique to add medications to the TPN bag. Medications instructed on: ANTIBIOTICS. Problem:Medications Completed Instructed patient on signs and symptoms related to medication regimen to report to provider. Assessed patient/caregiver ability to demonstrate management of medications safely Assessed patient/caregiver about ability to verbalize accurate dose/route/frequency /reason for medication Follow up needs: none, independent. Patient verbalizes understanding of medication management. Instruct on Pressure Prevention Description: Instruct patient/caregiver on inspecting the skin regularly for signs of impaired skin integrity, repositioning the patient on an individualized schedule according to the patient's tissue tolerance, skin condition, mobility, medical condition, and treatment goals. Avoid vigorous massage and emphasize the importance of increasing activity and mobility. Avoid using donut-shaped devices and foam cutouts for pressure redistribution. Determine if patient is using or needs a pressure reduction surface. Instruct patient/caregiver on using moisture barriers and absorbent pads/briefs as needed, avoiding prolonged skin contact with wet materials, and cleaning and drying skin thoroughly after incontinence episodes. If patient is malnourished instruct patient/caregiver on physician ordered diet, increased fluid intake if not contraindicated, and a list of possible protein sources to promote skin integrity. Problem:Pressure Prevention Goal:Prevent development of pressure injuries Completed Instructed patient/caregiver on pressure prevention including: repositioning patient and importance of increasing activity and mobility and Managing nutrition Patient verbalized understanding repositioning patient and importance of increasing activity and mobility and Managing nutrition Monitor Vital Signs Description: Monitor blood pressure, pulse, oxygen saturation, respirations Problem:Monitor patient's vital signs every home health visit Goal:Measure vital signs during every home health visit during episode of care Completed Completed. VSS. Educate Family on Infection Prevention Description: Instructed family on signs and symptoms of infection IE: fever, odor, change in color, increased amount of drainage, purulent drainage, warmth. Problem:Infection Prevention Goal:Verbalize signs of infection Completed Instruct on pain management techniques Description: Instruct in pharmacologic and nonpharmacologic pain management techniques. Problem:Pain Goal:Report that pain has been reduced or controlled Completed High Fall Risk Precautions Description: Instruct patient/caregiver to use proper lighting in all areas, stand/sit up slowly, use appropriate footwear when walking, use proper assistive devices, and to keep pathways clear of cords and clutter to prevent falls. Remove/secure throw rugs. Educate patient on medications and disease processes that increase fall risk, using corrective lenses as prescribed, placing hard to reach items within reach, what to do in the event of a fall and to report any falls to the home health agency. Problem:Fall Precautions/Safety Concerns Goal:Demonstrate fall and safety precautions Completed Instructed patient on fall risk prevention including: standing/sitting up slowly, using appropriate footwear when walking and keeping pathways clear of cords and clutter Patient verbalized understanding Educate on Wound Care Management Description: Instruct patient/caregiver on wound management including: ordered wound care, utilizing clean technique, appropriate hand hygiene, and disposal of dressings. Instruct patient/caregiver on nutrition and hydration needs for alt ered skin integrity, signs and symptoms of infection and/or wound deterioration to report to home health agency and or physician. Problem:Wound Education and Management Goal:Knowledgeable of Wound Management Completed Instructed patient/caregiver on wound management including current wound care orders Patient verbalized understanding current wound care orders Perform Dressing Change Description: Perform dressing change: Site #1 rt lateral foot, base 5th metatarsal Skilled Nurse, Physical Therapy, Occupational Therapy to perform dressing change as of 11/15/24, Frequency three times weekly and PRN for excess drainage or dislodgement of dressing. Wound care as follows: cleanse with soap and water or saline , pack hydrofera blue foam rope into wound bed - moisten hydrofera blue with saline after packing in wound bed, cover with foam dressing. Transcribed by Chana Morales RN from written wound care clinic orders from Marie ARAUJO with Dr Azael Roque 11/13/24 [id number] Problem:Wound Care Completed Clinician performed wound care per Physician's order dated 11/15/24. Patient tolerated well Perform dressing change Description: Perform dressing change: Site #1 rt plantar foot, base 5th metatarsal Skilled Nurse, Physical Therapy, Occupational Therapy to perform dressing change as of 11/15/24, Frequency three times weekly and PRN for excess drainage or dislodgement of dressing. Wound care as follows: cleanse with soap and water or saline , moisten hydrofera blue with saline and place hydrofera blue foam rope on wound bed, cover with foam dressing. Transcribed by Chana Morales RN from written wound care clinic orders from Marie ARAUJO with Dr Azael Roque 11/13/24 [id number] Problem:Wound Care Goal:Progression towards healing Completed Clinician performed wound care per Physician's order dated 11/15/24. Patient tolerated well documented in this encounter Care Teams [employer] Relationship Specialty Start Date End Date Javier DixoneDO [address] [facility] [address] [address] PCP - General Internal Medicine 05/09/24 Sofia Roper MD Urologist Urology 10/30/18 Fabian Lizama MD Referring Physician Pulmonary Disease 04/01/20 Giorgi Beyer MD [address] [facility] [address] [place] [address] Consulting Physician Cardiovascular Disease 08/30/24 Lore Richardson PA [address] [facility] [facility] [address] [place] [place] [id number] Orthopedic Surgery 09/11/24 documented as of this encounter
--- OUTSIDE RECORDS SUMMARY | 2024-11-30 15:13 | XMS_ITS | Data Portability ---
Author Organization [facility] OFFICE Address [address] [place] [address] Care Team Providers Care Treasury Analyst Name Role Phone KELLEY CAMILO Primary Care Provider Assessment Encounter Date Assessment Date Assessment LastModified by Organization Details LastModified Time 06/02/2023 06/02/2023 Patient Examined by AMBAR Ratliff, Also Documentation reviewed and approved by supervising physician [email or web address] Not available 06/02/2023 15:51:04 Plan of Treatment Reminders Order Date Submit Date Provider Last Modified By Organization Details Last Modified Time Details Appointments ESTABLISH ED PATIENT DETAILED 2024 01:45P M Giorgi Reyes i, MD Not available Not available Not available Lab None recorded. Referral None recorded. Procedures None recorded. Surgeries None recorded. Imaging None recorded. Medication Orders Jardiance 10 mg tablet 2023 024 [facility] [address] [facility], [place], [address], 02/04/2024 12:51:52 hydralazi ne 25 mg tablet 2022 023 [facility] [address] [facility], [place], [address], 06/05/2024 14:58:22 nebivolol 20 mg tablet 2022 023 [facility] [address], [address] [facility], [place], [address], 06/02/2023 15:54:59 diltiazem CD 240 mg capsule,e xtended release 24 hr 2022 023 LETITIA Thorne [facility] [address], [address], [place], [address], 06/02/2023 15:54:58 Patient TargetsNo targets recorded. Patient Instructions Encounter Date Encounter Id Patient Instructions Last Modified By Organization Details Last Modified Time 06/02/2023 [id number] Low cholesterol diet advised Low sodium diet advised. [email or web address] Not available 06/02/2023 15:54:48 06/05/2024 [id number] Weight loss 20 pounds Exercise advised Low cholesterol diet advised Low sodium diet advised. [email or web address] Not available 06/05/2024 15:20:48 Reason for Referral None Reported. Results Created Date Observation Date Name Description Value Unit Range Abnormal Flag Note LastModifiedBy Organization Detail LastModifiedTime 06/07/2006/02/2023 elect rocar diogr am No observ ation record ed. Not Available 2022 13:22:56 02/06/20 24 02/04/2024 elect rocar diogr am No observ ation record ed. Not Available 2023 11:11:22 03/18/20 24 03/13/2024 , [facility] ardio gram No observ ation record ed. [facility], [facility] [address] [address], [place], [address], 06/03/2024 09:48:11 09/01/19 25 08/30/2024 elect rocar diogr am No observ ation record ed. Not Available 2024 13:38:20 09/01/19 25 08/30/2024 XR, chest , 2 view No observ ation record ed. Not Available 2024 14:09:56 09/20/19 25 09/08/2024 rodriguez can cardi olite stres s test (PROC ) No observ ation record ed. Not Available 2024 19:13:53 Result Notes None recorded. Problems Name Problem SNOMED Code Status Onset Date Resolution Date Notes Provider Name and Address Organization Details Recorded Time Dyspnea on exertion 78402749 Active 2015 Levi Sifuentes [place], [place] - [facility] 6 00:27:13 Benign hyperten altaf 64388538 Active 2015 Levi Sifuentes [place], [place] - [facility] 6 00:27:19 Obstruct isauro sleep apnea syndrome 08464954 Active 2015 [facility] [place] [place] - [facility] 7 15:02:15 Malignan t tumor of breast 309335171 Active 2014 s/p resectio n Mark Can null, [place] - [facility] 8 15:21:58 Malignan t neoplasm of uterus 003330833 Active 2015 s/p resectio n Levi Sifuentes [place], [place] - [facility] 6 00:28:17 Scoliosi s deformit y of spine 645125561 Active 2015 Levi Sifuentes [place], [place] - [facility] 6 00:28:47 Chronic sinusiti s 81939259 Active 2015 Leiv Sifuentes [place], [place] - [facility] 6 00:29:57 Gastroes ophageal reflux disease 365959235 Completed 201504/14/2016 Mark doshi, [place] - [facility] 6 15:09:21 Asthma 445567360 Active 2015 Levi Sifuentes [place], [place] - [facility] 6 00:30:13 Obesity 352991661 Active 2015 Levi Sifuentes [place] - [facility] 6 00:30:20 Spinal injury 284035762 Active 2015 Levi Sifuentes [place], [place] - [facility] 6 00:30:34 Hyperlip idemia 11518842 Active 2015 Mark Can [place], [place] - [facility] 6 17:46:02 History of histopla smosis 47546472282 103 Active 2016 Mark doshi, [place] - [facility] 7 15:02:30 Chronic obstruct isauro pulmonar y disease 30420601 Active 2016 Mark Can [facility] 7 15:06:09 Chest discomfo rt 095409809 Active 2016 Mark doshi, [facility] 7 15:31:31 Anti-nuc lear factor detected 902636370 Active 2018 Mark Can [facility] 9 16:21:40 Problem Notes None recorded. Procedures Surgical History Date Name Laterality Status Provider Name and Address Organization Details Recorded Time Hysterectomy completed [facility] 11/12/2015 00:31:22 Mastectomy sleeve completed [facility] 11/12/2015 00:31:47 Anesth knee area surgery completed [facility] 11/12/2015 00:31:57 Imaging Results Imaging Date Name Status LastModified by Organization Details LastModified Time 06/02/2023 electrocardiogram completed Informa tion not available 06/07/2023 13:22:56 02/04/2024 electrocardiogram completed Informa tion not available 02/06/2024 11:11:22 03/13/2024 , echocardiogram completed [facility], [facility] [address] [address], [place], [address], 06/03/2024 09:48:11 08/30/2024 electrocardiogram completed Informa tion not available 09/01/2024 13:38:20 08/30/2024 XR, chest, 2 view completed Informa tion not available 09/01/2024 14:09:56 09/08/2024 lexiscan cardiolite stress test (PROC) completed Information not available 09/20/2024 19:13:53 Procedure Notes None recorded. Medical Equipment None Reported. Allergies Allergen ID Allergen Name Allergen Category Reaction Reaction Severity Criticality Documentation Date Start Date Code Code System Note Provider Name and Address Organization Details Recorded Time 79670 Product containin g angiotens in II receptor antagonis t (product) medicatio n Not available Not available Not available 04/01/2022 24948 008 SNOMED Sims [facility], [place] - [facility] 2 09:23:49 354 Latex (substanc e) environme nt,medica tion bradycard ia Not available Not available 11/12/2015 22066 8007 SNOMED Sims [facility], [place] - [facility] 6 00:38:13 Medications Name Sig Start Date Stop Date Status Note LastModified by Organization Details LastModified Time losartan 50 mg tablet 11/11 completed Not Available Not Available Not Available cyclobenz aprine 10 mg tablet TAKE 1/2 (ONE-LUCIA F) TABLET BY MOUTH THREE TIMES DAILY NEEDED FOR MUSCLE SPASM active Not Available Not Available No t Available amoxicill in 500 mg capsule TAKE FOUR CAPSULES BY MOUTH ONE HOUR BEFORE APPOINTM ENT 11/25 completed Not Available Not Available Not Available Qvar 80 mcg/actua tion Metered Aerosol oral inhaler Inhale 2 puffs twice a day by inhalati on route. 04/14 completed Not Available Not Available Not Available carvedilo l 6.25 mg tablet TAKE ONE TABLET BY MOUTH TWICE DAILY 04/14 completed Not Available Not Available Not Available prednison e 10 mg tablet 1 tab qd 11/29 completed Not Available Not Available Not Available doxycycli ne hyclate 100 mg capsule 02/11 completed Not Available Not Available Not Available paroxetin e 10 mg tablet TAKE 1/2 (ONE-LUCIA F) TABLET BY MOUTH ONCE DAILY active Not Available Not Available No t Available carvedilo l 12.5 mg tablet Take 1 tablet twice a day by oral route. 05/04 completed Not Available Not Available Not Available clindamyc in HCl 300 mg capsule lotion not capsule 02/11 completed Not Available Not Available Not Available Cardizem CD 360 mg capsule,e xtended release Take 1 capsule every day by oral route. 04/01 completed Not Available Not Available Not Available enalapril maleate 5 mg tablet 11/11 completed Not Available Not Available Not Available azithromy angelic 250 mg tablet TAKE 2 TABLETS BY MOUTH ON DAY 1, AND THEN TAKE 1 TABLET BY MOUTH ONCE A DAY ON DAY 2 THROUGH DAY 5 active Not Available Not Available No t Available aspirin 325 mg tablet Take 1 tablet every day by oral route. 08/13 completed Pt takes 4-6 tablets a day dependin g on pain. Not Available Not Available Not Available tizanidin e 4 mg tablet 03/01 completed No longer take it 11/09/18 : MA Not Available Not Available Not Available hydrocodo ne 5 mg-acetam inophen 325 mg tablet TAKE 1 TABLET BY MOUTH EVERY 6 HOURS NEEDED FOR PAIN UNCONTRO LLED BY OTHER MEDICATI ONS. YOU SHOULD BE CAREFUL NOT TO TAKE MORE THAN 4 GRAMS (1000 MG) OF ACETAMIN OPHEN IN A 24-HOUR PERIOD. 02/11 completed Not Available Not Available Not Available Claritin 10 mg tablet Take 1 tablet every day by oral route. 11/29 completed not taking Not Available Not Available Not Available diltiazem CD 240 mg capsule,e xtended release 24 hr TAKE 1 CAPSULE BY MOUTH ONCE DAILY IN THE MORNING active Not Available Not Available No t Available meloxicam 15 mg tablet 04/14 completed Not Available Not Available Not Available sucralfat e 1 gram tablet TAKE 1 TABLET BY MOUTH 4 TIMES DAILY 05/27 completed no longrt take Not Available Not Available Not Available lisinopri l 20 mg tablet Take 1 tablet every day by oral route. 03/01 completed Not Available Not Available Not Available prednison e 20 mg tablet TAKE 2 TABLETS BY MOUTH ONCE DAILY FOR 5 DAYS 09/01 completed Not Available Not Available Not Available isosorbid e mononitra te ER 30 mg tablet,ex tended release 24 hr Take 1 tablet every day by oral route. 03/23 completed pt is not taking this medicati on as of right now it caused hemmorag ing negative tests w urologis t 03/23/18 nl Not Available Not Available Not Available metoprolo l succinate ER 100 mg tablet,ex tended release 24 hr 11/11 completed Not Available Not Available Not Available hydralazi ne 25 mg tablet TAKE 1 TABLET BY MOUTH THREE TIMES DAILY 06/05 completed Not Available Not Available Not Available potassium chloride ER 10 mEq tablet,ex tended release Take 1 tablet by mouth twice daily active Not Available Not Available No t Available acetamino phen 300 mg-codein e 30 mg tablet 08/13 completed Not Available Not Available Not Available ciproflox acin 500 mg tablet 11/25 completed Not Available Not Available Not Available sulfameth oxazole 800 mg-trimet hoprim 160 mg tablet TAKE 1 TABLET BY MOUTH EVERY 12 HOURS active Not Available Not Available No t Available aspirin 81 mg tablet,de layed release Take 1 tablet every day by oral route. 05/04 completed Not Available Not Available Not Available carvedilo l 3.125 mg tablet 1 tbl BID 11/11 completed Not Available Not Available Not Available diltiazem 120 mg tablet Take 1 tablet every day by oral route. 04/01 completed Not Available Not Available Not Available magnesium oxide 400 mg (241.3 mg magnesium ) tablet TAKE 1 TABLET BY MOUTH ONCE DAILY DIRECTED active Not Available Not Available No t Available Cartia XT 120 mg capsule,e xtended release TAKE ONE CAPSULE BY MOUTH ONCE DAILY 05/04 completed Not Available Not Available Not Available cephalexi n 500 mg capsule TAKE 1 CAPSULE BY MOUTH EVERY 12 HOURS 11/25 completed Not Available Not Available Not Available oseltamiv ir 75 mg capsule TAKE 1 CAPSULE BY MOUTH EVERY 12 HOURS FOR 5 DAYS active Not Available Not Available No t Available lisinopri l 10 mg tablet Take 1 tablet every day by oral route as directed . 11/09 completed Not Available Not Available Not Available prednison e 50 mg tablet TAKE 1 TABLET BY MOUTH ONCE DAILY 05/27 completed Not Available Not Available Not Available telmisart an 80 mg tablet TAKE 1 TABLET BY MOUTH ONCE DAILY 02/23 completed no longrt take Not Available Not Available Not Available candesart an 16 mg tablet Take 1 tablet every day by oral route in the evening. 08/23 completed Not Available Not Available Not Available losartan 25 mg tablet 11/11 completed Not Available Not Available Not Available hydrochlo rothiazid e 12.5 mg capsule 11/11 completed Not Available Not Available Not Available nitroglyc eric 0.4 mg sublingua l tablet DISSOLVE ONE TABLET UNDER THE TONGUE EVERY 5 MINUTES NEEDED FOR CHEST PAIN. DO NOT EXCEED A TOTAL OF 3 DOSES IN 15 MINUTES 2021 active Not Available Not Available Not Avai lable monteluka st 10 mg tablet TAKE 1 TABLET BY MOUTH ONCE DAILY active Not Available Not Available No t Available mupirocin 2 % topical ointment 04/14 completed Not Available Not Available Not Available furosemid e 20 mg tablet TAKE ONE TABLET BY MOUTH ONCE DAILY IN THE MORNING 2021 active PRN Not Available Not Available Not Avai lable ergocalci ferol (vitamin D2) 1,250 mcg (50,000 unit) capsule Take 1 capsule every day by oral route as directed for 42 days. 02/11 completed Not Available Not Available Not Available ibuprofen 600 mg tablet Take 1 tablet 3 times a day by oral route as needed. 03/01 completed No longer take it 11/09/18 : MA Not Available Not Available Not Available cefuroxim e axetil 500 mg tablet TAKE 1 TABLET BY MOUTH EVERY 12 HOURS 06/01 completed Not Available Not Available Not Available estradiol 0.01% (0.1 mg/gram) vaginal cream 02/11 completed Not Available Not Available Not Available albuterol sulfate HFA 90 mcg/actua tion aerosol inhaler INHALE 2 PUFFS BY MOUTH 4 TIMES DAILY NEEDED active Not Available Not Available No t Available diltiazem 30 mg tablet 11/11 completed Not Available Not Available Not Available losartan 100 mg tablet TAKE 1 TABLET BY MOUTH ONCE DAILY 03/01 completed No longer take it 11/09/18 : MA Not Available Not Available Not Available amoxicill in 875 mg-potass ium clavulana te 125 mg tablet TAKE 1 TABLET BY MOUTH TWICE DAILY FOR 10 DAYS active Not Available Not Available No t Available Cartia XT 180 mg capsule,e xtended release Take 1 capsule every day by oral route. 08/10 completed Not Available Not Available Not Available Tylenol Extra Strength 500 mg tablet Take 2 tablets every 4 hours by oral route as directed . active Not Available Not Available No t Available clindamyc in 1 % lotion 06/01 completed Not Available Not Available Not Available Mucinex 600 mg tablet, extended release Take 1 tablet every day by oral route as needed. 08/04 completed Not Available Not Available Not Available Co Q-10 100 mg capsule Take every day by oral route. 02/23 completed Not Available Not Available Not Available Flexeril 5 mg tablet Take 0.5 tablets 3 times a day by oral route as needed. 11/11 completed Not Available Not Available Not Available potassium chloride ER 10 mEq tablet,ex tended release(p art/cryst ) TAKE 1 TABLET BY MOUTH TWICE DAILY 02/11 completed Not Available Not Available Not Available metoprolo l tartrate 25 mg tablet 11/11 completed Not Available Not Available Not Available nitrofura ntoin monohydra te/macroc rystals 100 mg capsule 05/04 completed Not Available Not Available Not Available Flovent HFA 110 mcg/actua tion aerosol inhaler Inhale 2 puffs twice a day by inhalati on route as directed for 30 days. 03/23 completed Not Available Not Available Not Available chlorhexi dine gluconate 0.12 % mouthwash 08/04 completed Not Available Not Available Not Available coenzyme Q10 11/25 completed Not Available Not Available Not Available Glucosami ne 1 tab qd 08/04 completed No longer take it 11/09/18 : MA Not Available Not Available Not Available Carafate 05/29 completed 4 tablets/ day Not Available Not Available Not Available Daily Vitamin Formula 1 tab qd 06/01 completed Not Available Not Available Not Available ranolazin e ER 500 mg tablet,ex tended release,1 2 hr Take 1 tablet twice a day by oral route. 03/01 completed No longer take it 11/09/18 : MA Not Available Not Available Not Available red yeast rice 600 mg capsule Take 1 capsule twice a week by oral route as directed . 08/13 completed Not Available Not Available Not Available MoviPrep 100 gram-7.5 gram-2.69 1 gram oral powder packet 11/25 completed Not Available Not Available Not Available hydrochlo rothiazid e 12.5 mg tablet Take 1 tablet every day by oral route. 04/14 completed Not Available Not Available Not Available Ranexa 1,000 mg tablet,ex tended release Take 1 tablet twice a day by oral route. 12/22 completed Not Available Not Available Not Available diclofena c epolamine 1.3 % transderm al 12 hour patch UNWRAP AND APPLY 1 PATCH TO DRY INTACT SKIN ONCE DIRECTED active Not Available Not Available No t Available Coricidin HBP Chest Congestio n-Cough 10 mg-200 mg capsule Take by oral route as needed. 08/04 completed Not Available Not Available Not Available Bystolic 10 mg tablet Take 1 tablet twice a day by oral route. 07/17 completed Not Available Not Available Not Available Bystolic 5 mg tablet Take 1 tablet every day by oral route. 05/04 completed Not Available Not Available Not Available Align (B. is) 4 mg capsule Take every day by oral route as needed. 11/25 completed Not Available Not Available Not Available nebivolol 20 mg tablet Take 1 tablet by mouth once daily active Not Available Not Available No t Available B12 1 tab qd 06/01 completed Not Available Not Available Not Available Dulera 200 mcg-5 mcg/actua tion HFA aerosol inhaler Inhale 2 puffs twice a day by inhalati on route as directed . 05/04 completed Not Available Not Available Not Available Probiotic Plexus ProBio 1 tab qd 03/05 completed pt. no longer takes Not Available Not Available Not Available sodium,po tassium,m ag sulfates 17.5 gram-3.13 gram-1.6 gram oral soln TAKE 354ML BY MOUTH ONCE FOR 1 DOSE active Not Available Not Available No t Available magnesium 400 mg (as magnesium oxide) capsule Take 1 capsule every day by oral route as directed . 08/04 completed Not Available Not Available Not Available Eliquis 5 mg tablet TAKE 1 TABLET BY MOUTH TWICE DAILY active Not Available Not Available No t Available Jardiance 10 mg tablet Take 1 tablet every day by oral route. active Not Available Not Available No t Available Breo Ellipta 200 mcg-25 mcg/dose powder for inhalatio n INHALE 1 PUFF BY MOUTH ONCE DAILY 02/11 completed Not Available Not Available Not Available Fluzone High-Dose 8405-7449 (PF) 180 mcg/0.5 mL intramusc ular syringe 11/25 completed Not Available Not Available Not Available Eliquis DVT-PE Treatment 30-Day Starter 5 mg (74 tablets) in dose pack FOLLOW PACKAGE DIRECTIO NS. CALL OFFICE FOR FURTHER REFILLS AFTER THIS MONTH 09/01 completed Not Available Not Available Not Available Trelegy Ellipta 200 mcg-62.5 mcg-25 mcg powder for inhalatio n INHALE 1 PUFF BY MOUTH ONCE DAILY active Not Available Not Available No t Available Vitals Date Recorded Body height Body mass index (BMI) Body weight Heart rate Respiratory rate Oxygen saturation Oxygen saturation in Arterial blood by Pulse oximetry Systolic blood pressure Diastolic blood pressure Provider Name and Address Organization Details Last Updated DateTime 3 165.1 cm 46.1 kg/m2 213841. 09 g 82 /min 18 /min 94 % 94 % 122 mm[Hg] 78 mm[Hg] Darnell Gamboa [facility] 3 15:22:46 Date Recorded Body height Heart rate Oxygen saturation Oxygen saturation in Arterial blood by Pulse oximetry Body mass index (BMI) Body weight Systolic blood pressure Diastolic blood pressure Provider Name and Address Organization Details Last Updated DateTime 3 165.1 cm 77 /min 90 % 90 % 46.8 kg/m2 618241. 46 g 156 mm[Hg] 78 mm[Hg] Roxann Caban [facility] 3 15:10:11 Date Recorded Body height Body mass index (BMI) Body weight Heart rate Oxygen saturation Oxygen saturation in Arterial blood by Pulse oximetry Systolic blood pressure Diastolic blood pressure Provider Name and Address Organization Details Last Updated DateTime 4 165.1 cm 45.4 kg/m2 559654. 36 g 72 /min 98 % 98 % 126 mm[Hg] 80 mm[Hg] Courtney Dowling [facility] 4 12:39:42 Date Recorded Body height Body mass index (BMI) Body weight Heart rate Oxygen saturation Oxygen saturation in Arterial blood by Pulse oximetry Systolic blood pressure Diastolic blood pressure Provider Name and Address Organization Details Last Updated DateTime 4 165.1 cm 45.6 kg/m2 842948. 59 g 73 /min 92 % 92 % 135 mm[Hg] 69 mm[Hg] Roxann Caban [facility] 4 15:00:21 Date Recorded Body height Body mass index (BMI) Body weight Heart rate Oxygen saturation Oxygen saturation in Arterial blood by Pulse oximetry Systolic blood pressure Diastolic blood pressure Provider Name and Address Organization Details Last Updated DateTime 5 165.1 cm 44.4 kg/m2 363668. 16 g 63 /min 96 % 96 % 151 mm[Hg] 75 mm[Hg] Roxann Caabn [facility] 5 12:33:02 Social History Question Answer Notes LastModified by Organizat ion Details LastModified Time Tobacco Smoking Status Never Smoker Not Available [employer] 06/10/2020 03:30:19 What Is Your Level Of Alcohol Consumption? Occasional [id number] Information not available 06/10/2020 Do You Or Have You Ever Used E-cigarettes Or Vape? Never Used Electronic Cigarettes [id number] Information not available 06/10/2020 What Was The Date Of Your Most Recent Tobacco Screening? 11/09/2018 [id number] Information not available 06/10/2020 Do You Or Have You Ever Used Smokeless Tobacco? Never Used Smokeless Tobacco [id number] Information not available 06/10/2020 How Much Tobacco Do You Smoke? No [id number] Information not available 06/10/2020 How Many Years Have You Smoked Tobacco? 0 [id number] Information not available 06/10/2020 Sex: Unknown Functional Status None recorded. Mental Status None recorded. Family History Relationship Description Onset Age of this Age Resolved Age Notes LastModified by Organization Details LastModified Time Father Chronic obstructive pulmonary disease 80 hmesto Not available 2015 00:38:45 Father Diabetes mellitus 80 hmesto Not available 2015 00:38:58 Mother Cardiomyopat hy 50 63 hmesto Not available 2015 00:39:24 Mother Crohn's disease hmesto Not available 2015 00:39:33 Maternal Uncle Myocardial infarction 66 hmesto Not available 11/11 00:39:57 Maternal Grandmother Congestive heart failure hmesto Not available 2015 00:40:13 Brother Malignant tumor of prostate hmesto Not available 2015 00:40:30 Medical History Condition Response Cancer Y Hyperlipidemia Y Asthma Y Sleep Apnea Y Sleep Disorder Y Hypertension Y Gynecological HistoryNo gynecological history recorded. Obstetrics History GPAL:G 0 P 0 0 0 0 Past Encounters Encounter ID Performer Location Encounter Start Date Encounter Closed Date Diagnosis/Indication Diagnosis SNOMED-CT Code Diagnosis ICD10 Code Diagnosis Note [id number] [facility] OFF[facility] [address] [place] [address] 11/12/2015 15:49:24 11/12/2015 18:07:43 Benign essential hypertension 9699728 I10 {{well-con trolled no t well-contr olled}}Yamileth mercedes's blood pressure is {{well-con trolled* n ot well-contr olled}} on present medical therapy. Patient is {{tolerati ng, without difficulty ,* having side effects with}} the current medication s. I have {{not made* made the following} } changes to the current regimen. {{ Patient is advised to maintain a blood pressure diary.*}} Cont low Na diet. Hyperlipidemia 20726589 E78.5 Patient's hyperlipid emia is {{well-con trolled no t well-contr olled*}} on present diet-only therapy. Patient is {{having side effects with previous cholestero l meds.# anika erating, without difficulty , having side effects with}} {{not made made the following} }Cont low cholestero l diet. If lipid panel remains elevated will consider to add Livalo or new injectable medication s. At [facility] ed risk for cardiovascular event 434627096 Z78.9 Pt with hx of HTN, HL and exposure to second-chand d smoking, postmenopa usal age would benefit from primary prophylaxi s of EC ASA 81 QD. This was advised and pt will start this over the counter medication . [id number] [facility] OFFICE [address] [place] [address] 04/14/2016 14:14:41 04/15/2016 11:49:36 Hyperlipidemia [id number] E78.5 Patient's hyperlipid emia is {{well-con trolled no t well-contr olled*}} on present diet-only therapy. Patient used to have many musculoske letal symptoms in the past related to statins. Will try low dose of Pitavastat in and see if she is able to tolerated this.Cont low cholestero l diet and increase physiacal activity. Benign hypertension 1072 5009 I10 Patient's blood pressure is {{well-con trolled* n ot well-contr olled}} on present medical therapy. Patient is {{tolerati ng, without difficulty ,* having side effects with}} the current medication s. I have {{not made* made the following} } changes to the current regimen. {{ Patient is advised to maintain a blood pressure diary.*}} Cont low Na diet. 32828 [facility] OFFICE [address] [place] [address] 11/25/2016 14:33:45 11/25/2016 16:40:12 Benign hypertension [id number] I10 Patient's blood pressure is {{well-con trolled* n ot well-contr olled}} on present medical therapy. Patient is {{tolerati ng, without difficulty ,* having side effects with}} the current medication s. I have {{not made* made the following} } changes to the current regimen. {{ Patient is advised to maintain a blood pressure diary.*}} Cont low Na diet. Hyperlipidemia [id number] E78.5 Patient's hyperlipid emia is {{well-con trolled no t well-contr olled*}} on present diet-only therapy. Patient used to have many musculoske letal symptoms in the past related to statins. Will tried low dose of Pitavastat in.if levels still high option would be Rapatha or Praluent.C ont low cholestero l diet and increase physical activity. [address] [facility] [place] [address] [place] [address] 06/21/2017 14:04:09 06/22/2017 16:42:49 Benign hypertension [id number] I10 Patient's blood pressure is {{relative ly well-contr olled# wel l-controll ed not well-contr olled}} on present medical therapy. Patient is {{tolerati ng, without difficulty ,* having side effects with}} the current medication s. I have {{not made* made the following} } changes to the current regimen. {{ Patient is advised to maintain a blood pressure diary.*}} Cont low Na diet. ECHO before next appt. Hyperlipidemia [id number] E78.5 Patient's hyperlipid emia is {{well-con trolled no t well-contr olled*}} on present diet-only therapy. Patient used to have many musculoske letal symptoms in the past related to statins. and fibrates. Will try low dose of Pitavastat in.if levels still high option would be Rapatha or Praluent.C ont low cholestero l diet and increase physical activity. Will obtain copy of recent lipid panel. Chest discomfort 6280137 09 R07.89 Pt used to complain for episodes of chest discomfort . Her stress test was negative. She was started on Ranexa with resulution of her symptoms which were probably due to microvesse l disease. Will cont Ranexa and contact [facility] for assistance program. [address] [facility] [address] [place] [address] 11/29/2017 13:55:01 12/05/2017 17:40:42 Benign hypertension [id number] I10 Home blood pressurs have been running in the 130s-140s/ 70s-80s. Blood pressure is elevated today but this is only one reading. Will keep close follow up and consider medication change if blood pressure remains elevated by next visit. Hyperlipidemia 74670883 E78.5 Patient's hyperlipid emia is {{well-con trolled no t well-contr olled*}} on present diet-only therapy. Patient used to have many musculoske letal symptoms in the past related to statins. and fibrates. Pt wants to hold with starting any statins. Will repeat lipids.if levels still high option would be Rapatha or Praluent.C ont low cholestero l diet and increase physical activity. LDL 128 01/11/17 Chest discomfort [id number] 09 R07.89 Patient presents with {{chest* a rm back ja w}} pain {{typical of angina* wi th atypical features}} . Given the history, exam findings and {{high int ermediate * low}} cardiac risk factors, I {{feel* do not feel}} additional investigat ion is warranted. I have made arrangemen ts in the near future for {{an exercise stress echocardio gram to evaluate for any ischemia, structural heart disease, or exercise induced arrythmia an exercise stress nuclear test an exercise stress nuclear test (stress echo not possible due to COPD or obesity) a n exercise stress nuclear test and an echocardio gram to evaluate for any ischemia or structural heart disease* a pharmacolo gic stress nuclear test due to reduced functional capacity or conduction abnormalit y cardiac catheteriz ation an echocardio gram to evaluate left ventricula r function and any structural heart disease or valvular abnormalit y}}. The procedure was discussed with the patient, and risks, benefits, and alternativ e options were explained. {{ The patient was informed about heart catheteriz ation and interventi onal procedures and agrees to proceed.}} Appropriat e labwork {{has has not*}} been performed recently, therefore I {{have not have*} } made arrangemen ts for further testing. I have asked the patient to curtail exercise and activities until our investigat ion is complete. I have {{made no made the following* }} adjustment s to the present medical regimen. {{ Patient has been started on daily aspirin.*} } {{ Patient has been given a prescripti on for sublingual nitroglyce rin.*}} Improved with increasing her dose of Ranexa to 1000 mg BID. [address] [facility] [address] [place] [address] 12/22/2017 14:46:50 12/23/2017 11:20:25 Benign hypertension [id number] I10 Home blood pressures have been running in the 155-132/89 -66, HR 72. BUT she has been in PAIN for 1 week since stress test. Blood pressure is elevated today, but this is only one reading, will keep close follow up, and consider medication change if blood pressure is still elevated next visit. Hyperlipidemia 28263427 E78.5 Patient's hyperlipid emia is {{well-con trolled no t well-contr olled*}} On present diet-only therapy. Patient used to have many musculoske letal symptoms in the past related to statins. and fibrates. Pt wants to hold with starting any statins. Will repeat lipids. if levels still high option would be Rapatha or Praluent. Cont low cholestero l diet and increase physical activity. LDL 128 01/11/17 Chest discomfort 2346256 09 R07.89 Had ECHO done on 12/15/17 showed normal global systolic function , EF 55-60%, diastolic dysfunctio n grade cannot be determine, mild mitral regurgitat ion. Had negative Treadmill Stress Test on 12/15/17 with normal LV systolic function, LVEF 55%. Compared to last study on 03/10/2015 there are no changes. Improved with increasing her dose of Ranexa to 1000 mg BID. Dyspnea on exertion 6084 5006 R06.09 with walking up stairs.pt noticed to have episodes of desaturati onShe is being followed by pulmonolog istMay benefit from PFTs and 6 [place] [address] Giorgi Beyer MD [facility] [address] [place] [address] 03/23/2018 14:39:44 08/11/2018 10:35:12 Benign hypertension [id number] I10 Elevated today. Will increase Carvedilol 12.5 mg BID. Hyperlipidemia [id number] E78.5 Patient's hyperlipid emia is {{well-con trolled no t well-contr olled*}} On present diet-only therapy. Patient used to have many musculoske letal symptoms in the past related to statins. and fibrates. 12/12/17: LDL 131 if levels still high option would be Repatha or Praluent. Cont low cholestero l diet and increase physical activity. Pt wants to hold with starting any statins or PSK9 Inhibitors now. Chest discomfort 0748767 09 R07.89 Improved Had ECHO on 12/15/17 showed normal global systolic function , EF 55-60%, diastolic dysfunctio n grade cannot be determine, mild mitral regurgitat ion. Had negative Treadmill Stress Test on 12/15/17 with normal LV systolic function, LVEF 55%. Compared to last study on 03/10/2015 there are no changes. On Ranexa to 500 mg BID Dyspnea on exertion 6084 5006 R06.09 with walking up stairs. pt noticed to have episodes of desaturati on She is being followed by pulmonolog ist May benefit from PFTs and 6 [place] [address] [facility] [address] [place] [address] 05/04/2018 14:00:16 08/14/2018 17:17:08 Benign hypertension [id number] I10 Patient's blood pressure is {{well-con trolled no t well-contr olled*}} on present medical therapy. Patient is {{tolerati ng, without difficulty ,* having side effects with}} the current medication s. I have {{not made made the following* }} changes to the current regimen. increase Diltiazem{ { Patient is advised to maintain a blood pressure diary.*}} Cont low Na diet. Hyperlipidemia 44722068 E78.5 Patient's hyperlipid emia is {{well-con trolled no t well-contr olled*}} On present diet-only therapy. Patient used to have many musculoske letal symptoms in the past related to statins. and fibrates. 12/12/17: LDL 131 if levels still high option would be Repatha or Praluent. Cont low cholestero l diet and increase physical activity. Pt wants to hold with starting any statins or PSK9 Inhibitors now.She can not tolerate statins due to muscle/luli nt pain related to these drugs Chest discomfort 4801107 09 R07.89 resolved Had ECHO on 12/15/17 showed normal global systolic function , EF 55-60%, diastolic dysfunctio n grade cannot be determine, mild mitral regurgitat ion. Had negative Treadmill Stress Test on 12/15/17 with normal LV systolic function, LVEF 55%. Compared to last study on 03/10/2015 there are no changes. On Ranexa to 500 mg BID [address] [facility] OFFICE [address] [place] [address] 06/01/2018 15:27:37 06/01/2018 16:22:13 Benign hypertension [id number] I10 Patient's blood pressure is {{well-con trolled no t well-contr olled*}} on present medical therapy. Patient is {{tolerati ng, without difficulty ,* having side effects with}} the current medication s. I have {{not made made the following* }} changes to the current regimen. increase Bystolic{{ Patient is advised to maintain a blood pressure diary.*}} Cont low Na diet. Hyperlipidemia 15908029 E78.5 Patient's hyperlipid emia is {{well-con trolled no t well-contr olled*}} On present diet-only therapy. Patient used to have many musculoske letal symptoms in the past related to statins. and fibrates. 12/12/17: LDL 131 if levels still high option would be Repatha or Praluent. Cont low cholestero l diet and increase physical activity. Pt wants to hold with starting any statins or PSK9 Inhibitors now.She can not tolerate statins due to muscle/luli nt pain related to these drugs Pt is on yeast rice and noticed that since then her lipid panel improved.U nfortunatl y possibly it thinned her blood so she had episodes of hematuria Chest discomfort 9480318 09 R07.89 resolved since Ranex was started Had ECHO on 12/15/17 showed normal global systolic function , EF 55-60%, diastolic dysfunctio n grade cannot be determine, mild mitral regurgitat ion. Had negative Treadmill Stress Test on 12/15/17 with normal LV systolic function, LVEF 55%. Compared to last study on 03/10/2015 there are no changes. On Ranexa to 500 mg BID Essential hypertension [id number] I10 History of histoplasmosis [id number] 9103 Z86.19 [address] [facility] [address] [place] [address] 08/10/2018 14:40:25 08/10/2018 16:07:05 Benign hypertension [id number] I10 Patient's blood pressure is {{relative ly well-contr olled# wel l-controll ed not well-contr olled}} on present medical therapy. Patient is {{tolerati ng, without difficulty ,* having side effects with}} the current medication s. I have {{not made made the following* }} changes to the current regimen. increase cardizem{{ Patient is advised to maintain a blood pressure diary.*}} Cont low Na diet. Hyperlipidemia 74949953 E78.5 Patient's hyperlipid emia is {{well-con trolled no t well-contr olled*}} On present diet-only therapy. Patient used to have many musculoske letal symptoms in the past related to statins. and fibrates. 12/12/17: LDL 131 if levels still high option would be Repatha or Praluent. Cont low cholestero l diet and increase physical activity. Pt wants to hold with starting any statins or PSK9 Inhibitors now.She can not tolerate statins due to muscle/luli nt pain related to these drugs Pt is on yeast rice and noticed that since then her lipid panel improved.U nfortunatl y possibly it thinned her blood so she had episodes of hematuria Chest discomfort 2895852 09 R07.89 resolved since Ranex was started Had ECHO on 12/15/17 showed normal global systolic function , EF 55-60%, diastolic dysfunctio n grade cannot be determine, mild mitral regurgitat ion. Had negative Treadmill Stress Test on 12/15/17 with normal LV systolic function, LVEF 55%. Compared to last study on 03/10/2015 there are no changes. On Ranexa to 500 mg BID History of histoplasmosis [id number] 9103 Z86.19 18403 [facility] [address] [place] [address] 11/09/2018 14:51:00 11/09/2018 16:21:50 Benign hypertension [id number] I10 Patient's blood pressure is {{relative ly well-contr olled# wel l-controll ed not well-contr olled}} on present medical therapy. Patient is {{tolerati ng, without difficulty ,* having side effects with}} the current medication s. I have {{not made made the following* }} changes to the current regimen. increase Lisinopril {{ Patient is advised to maintain a blood pressure diary.*}} Cont low Na diet. Hyperlipidemia 54298510 E78.5 Patient's hyperlipid emia is {{well-con trolled no t well-contr olled*}} On present diet-only therapy. Patient used to have many musculoske letal symptoms in the past related to statins. and fibrates. 12/12/17: LDL 131 if levels still high option would be Repatha or Praluent. Cont low cholestero l diet and increase physical activity. Pt wants to hold with starting any statins or PSK9 Inhibitors now.She can not tolerate statins due to muscle/luli nt pain related to these drugs Pt is on yeast rice and noticed that since then her lipid panel improved.U nfortunatl y possibly it thinned her blood so she had episodes of hematuria Chest discomfort 1116827 09 R07.89 resolved since Ranex was started Had ECHO on 12/15/17 showed normal global systolic function , EF 55-60%, diastolic dysfunctio n grade cannot be determine, mild mitral regurgitat ion. Had negative Treadmill Stress Test on 12/15/17 with normal LV systolic function, LVEF 55%. Compared to last study on 03/10/2015 there are no changes. On Ranexa to 500 mg BID History of histoplasmosis [id number] 9103 Z86.19 34567 [facility] [address] [place] [address] 03/01/2019 13:54:46 03/01/2019 16:24:40 Benign hypertension 25460007 I10 Patient's blood pressure is {{well-con trolled no t well-contr olled*}} on present medical therapy. Patient is {{tolerati ng, without difficulty ,* having side effects with}} the current medication s. I have {{not made made the following* }} changes to the current regimen. change lisinopril to candesarta n due to cough{{ Jamar narvaez is advised to maintain a blood pressure diary.*}} Cont low Na diet. Hyperlipidemia 71522236 E78.5 Patient's hyperlipid emia is {{well-con trolled no t well-contr olled*}} On present diet-only therapy. Patient used to have many musculoske letal symptoms in the past related to statins. and fibrates. if levels still high option would be Repatha or Praluent. Cont low cholestero l diet and increase physical activity. Pt wants to hold with starting any statins or PSK9 Inhibitors now.She can not tolerate statins due to muscle/luli nt pain related to these drugs Pt is on yeast rice and noticed that since then her lipid panel improved.U nfortunatl y possibly it thinned her blood so she had episodes of hematuria LIPIDS 25492047 TC 234, HDL 51, LDL 149 Chest discomfort 6985797 09 R07.89 resolved OFF Ranexa due to side effects per pt Had ECHO on 12/15/17 showed normal global systolic function , EF 55-60%, diastolic dysfunctio n grade cannot be determine, mild mitral regurgitat ion. Had negative Treadmill Stress Test on 12/15/17 with normal LV systolic function, LVEF 55%. Compared to last study on 03/10/2015 there are no changes. History of histoplasmosis 3714880375 9103 Z86.19 Anti-nucle ar factor detected 225239419 R76.8 Essential [place] 85788294 [place] [address] [facility] OFFICE [address] [place] [address] 05/03/2019 13:51:09 05/03/2019 18:26:48 Hyperlipidemia 55929807 E78.5 Patient's hyperlipid emia is {{well-con trolled no t well-contr olled*}} On present diet-only therapy. Patient used to have many musculoske letal symptoms in the past related to statins. and fibrates. if levels still high option would be Repatha or Praluent. Cont low cholestero l diet and increase physical activity. Pt wants to hold with starting any statins or PSK9 Inhibitors now.She can not tolerate statins due to muscle/luli nt pain related to these drugs Pt is on yeast rice and noticed that since then her lipid panel improved.U nfortunatl y possibly it thinned her blood so she had episodes of hematuria pt does not want to start any mrds includinr repatha LIPIDS 98331869 TC 234, HDL 51, LDL 149 Benign hypertension 1072 5009 I10 Patient's blood pressure is {{well-con trolled no t well-contr olled*}} on present medical therapy. Patient is {{tolerati ng, without difficulty ,* having side effects with}} the current medication s. I have {{not made made the following* }} changes to the current regimen. change lisinopril to candesarta n due to cough{{ Jamar narvaez is advised to maintain a blood pressure diary.*}} Cont low Na diet. Essential [place] 99149949 [place] [address] [facility] OFFICE [address] [place] [address] 08/23/2019 14:13:30 08/23/2019 14:51:21 Hyperlipidemia 43430477 E78.5 Patient's hyperlipid emia is {{well-con trolled no t well-contr olled*}} On present diet-only therapy. Patient used to have many musculoske letal symptoms in the past related to statins. and fibrates. if levels still high option would be Repatha or Praluent. Cont low cholestero l diet and increase physical activity. Pt wants to hold with starting any statins or PSK9 Inhibitors now.She can not tolerate statins due to muscle/luli nt pain related to these drugs Pt is on yeast rice and noticed that since then her lipid panel improved.U nfortunatl y possibly it thinned her blood so she had episodes of hematuria pt does not want to start any mrds includinr repatha LIPIDS 41790767 TC 234, HDL 51, LDL 149 Benign hypertension 1072 5009 I10 Patient's blood pressure is {{well-con trolled* n ot well-contr olled}} on present medical therapy. Patient is {{tolerati ng, without difficulty ,* having side effects with}} the current medication s. I have {{not made made the following* }} changes to the current regimen. change candesarta n to telmisarta n due to reed.{{ P atient is advised to maintain a blood pressure diary.*}} Cont low Na diet. [address]334 Giorgi Beyer [facility] [address] [place] [address] 03/06/2020 15:30:27 03/06/2020 17:08:13 Hyperlipidemia 09856035 E78.5 Will recheck fasting lipids. Pt reports she is attempting diet and exercise. Refusal of statins. Education on reason for statins provided, continued refusal. Patient's hyperlipid emia is {{well-con trolled no t well-contr olled*}} On present diet-only therapy. Patient used to have many musculoske letal symptoms in the past related to statins. and fibrates. if levels still high option would be Repatha or Praluent. Cont low cholestero l diet and increase physical activity.P t wants to hold with starting any statins or PSK9 Inhibitors now.She can not tolerate statins due to muscle/luli nt pain related to these drugsPt is on yeast rice and noticed that since then her lipid panel improved.u nfortunate ly possibly it thinned her blood so she had episodes of hematuriap t does not want to start any mrds includinr repatha LIPIDS 93609521 TC 234, HDL 51, LDL 149 Benign hypertension 1072 5009 I10 BP stable on Bystolic, Cartia, telmisarta n.Patient' s blood pressure is {{well-con trolled* n ot well-contr olled}} on present medical therapy. Patient is {{tolerati ng, without difficulty ,* having side effects with}} the current medication s. I have {{not made made the following* }} changes to the current regimen. change candesarta n to telmisarta n due to reed.{{ P atient is advised to maintain a blood pressure diary.*}} Cont low Na diet. 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 Obstructiv e sleep apnea syndrome 22529172 G47.33 03/06/2020W ears a CPAP. [place] [address] [facility] OFFICE [facility] [place] [address] 05/29/2020 14:25:05 05/29/2020 16:27:44 Hyperlipidemia 49198357 E78.5 Will recheck fasting lipids. Pt reports she is attempting diet and exercise. Refusal of statins. Education on reason for statins provided, continued refusal. Patient's hyperlipid emia is {{well-con trolled no t well-contr olled*}} On present diet-only therapy. Patient used to have many musculoske letal symptoms in the past related to statins. and fibrates. if levels still high option would be Repatha or Praluent. Cont low cholestero l diet and increase physical activity.P t wants to hold with starting any statins or PSK9 Inhibitors now.She can not tolerate statins due to muscle/luli nt pain related to these drugsPt is on yeast rice and noticed that since then her lipid panel improved.u nfortunate ly possibly it thinned her blood so she had episodes of hematuriap t does not want to start any mrds includinr repatha LIPIDS 25346701 TC 234, HDL 51, LDL 149 Benign hypertension 1072 5009 I10 BP stable on Bystolic, Cartia, telmisarta n.Patient' s blood pressure is {{well-con trolled* n ot well-contr olled}} on present medical therapy. Patient is {{tolerati ng, without difficulty ,* having side effects with}} the current medication s. I have {{not made made the following* }} changes to the current regimen. change candesarta n to telmisarta n due to reed.{{ P atient is advised to maintain a blood pressure diary.*}} Cont low Na diet. 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 ECHO Obstructiv e sleep apnea syndrome 75135685 G47.33 Wears a CPAP. Controlled by Dr. Enmanuel Lizama in [facility]. Deep venou s thrombosis of lower extremity 317638065 I82.409 She is now establishe d with vascular surgery at [facility] for superficia l DVT. She is on full dose ASA vs. NOAC d/t history of hemorrhagi ng and hematuria [address] Dianne Albert [facility] OFFICE [address] [place] [address] 03/05/2021 11:58:39 03/06/2021 08:30:48 Hyperlipidemia 02767242 E78.5 Needs to keep LDL less than 100, and HDL more than 40.She declines all statins and other lipid lowering therapies aside from red yeast rice. Benign hypertension 1072 5009 I10 Fair control on current regimenDec lines further adjustment s to her medication regimen Dyspnea 508906117 R06.00 Stable, unchanged. Follows with pulmonary (Dr. Lizama) Obstructiv e sleep apnea syndrome 66261744 G47.33 Compliant with nightly CPAP use Deep venou s thrombosis of lower extremity 426747198 I82.409 She is now establishe d with vascular surgery at [facility] for superficia l DVT.She is on full dose ASA vs. NOAC d/t history of hemorrhagi ng and hematuria. [address] [facility] [address] [place] [address] 08/13/2021 14:26:39 08/13/2021 15:36:46 Hyperlipidemia 91629238 E78.5 Needs to keep LDL less than 100, and HDL more than 40.She declines all statins and other lipid lowering therapies aside from red yeast rice. Benign hypertension 1072 5009 I10 Fair control on current regimenDec lines further adjustment s to her medication regimen Dyspnea 443921500 R06.00 Stable, unchanged. Follows with pulmonary (Dr. Lizama) Obstructiv e sleep apnea syndrome 26147745 G47.33 Compliant with nightly CPAP use Deep venou s thrombosis of lower extremity 536643733 I82.409 She is now establishe d with vascular surgery at [facility] for superficia l DVT.She is on full dose ASA vs. NOAC d/t history of hemorrhagi ng and hematuria. [address] Mark Can [facility] [address] [place] [address] 02/11/2022 13:54:58 02/11/2022 14:44:03 Hyperlipidemia 02097115 E78.5 Needs to keep LDL less than 100, and HDL more than 40.She declines all statins and other lipid lowering therapies aside from red yeast rice. Benign hypertension 1072 5009 I10 Patient's blood pressure is {{well-con trolled* n ot well-contr olled}} on present medical therapy. Patient is {{tolerati ng, without difficulty ,* having side effects with}} the current medication s. I have {{not made* made the following} } changes to the current regimen. {{ Patient is advised to maintain a blood pressure diary.*}} Cont low Na diet. Dyspnea [id number] R06.00 Stable, unchanged. Follows with pulmonary (Dr. Lizama) Obstructiv e sleep apnea syndrome [id number] G47.33 Compliant with nightly CPAP use Deep venou s thrombosis of lower extremity [id number] I82.409 She is now establishe d with vascular surgery at [facility] for superficia l DVT.She is on full dose ASA vs. NOAC d/t history of hemorrhagi ng and hematuria. Essential [place] [id number] [place] [id number] Mark [facility] [address] [facility] [place] [address] 02/23/2022 16:13:44 02/23/2022 17:02:38 Hyperlipidemia 21057947 E78.5 Needs to keep LDL less than 100, and HDL more than 40.She declines all statins and other lipid lowering therapies aside from red yeast rice. Benign hypertension 1072 5009 I10 Patient's blood pressure is {{well-con trolled* n ot well-contr olled}} on present medical therapy. Patient is {{tolerati ng, without difficulty ,* having side effects with}} the current medication s. I have {{not made* made the following} } changes to the current regimen. {{ Patient is advised to maintain a blood pressure diary.*}} Cont low Na diet. Dyspnea 260754494 R06.00 Stable, unchanged. Follows with pulmonary (Dr. Lizama) Obstructiv e sleep apnea syndrome 23966376 G47.33 Compliant with nightly CPAP use Deep venou s thrombosis of lower extremity 195401593 I82.409 She is now establishe d with vascular surgery at [facility] for superficia l DVT.She is on full dose ASA vs. NOAC d/t history of hemorrhagi ng and hematuria. Essential hypertension 09860082 [place] fu [id number] Giorgi Beyer MD [facility] [address] [place] [address] 04/01/2022 16:46:07 04/01/2022 17:24:39 Hyperlipidemia 40682390 E78.5 Needs to keep LDL less than 100, and HDL more than 40.She declines all statins and other lipid lowering therapies aside from red yeast rice. Benign hypertension 1072 5009 I10 Now well controlled Dyspnea 845125146 R06.00 Stable, unchanged. Follows with pulmonary (Dr. Lizama) Obstructiv e sleep apnea syndrome 39569026 G47.33 Compliant with nightly CPAP use Deep venou s thrombosis of lower extremity 405286296 I82.409 She is now establishe d with vascular surgery at [facility] for superficia l DVT.She is on full dose ASA vs. NOAC d/t history of hemorrhagi ng and hematuria. Essential hypertension 94421534 I10 Now well controlled Dyspnea on exertion 6084 5006 R06.09 Obtain echo to evaluate for structural /functiona l disease. 54736 Giorgi Beyer MD [facility] [place] [address] 05/27/2022 15:06:40 05/27/2022 15:37:06 Hyperlipidemia 57567902 E78.5 Needs to keep LDL less than 100, and HDL more than 40.She declines all statins and other lipid lowering therapies aside from red yeast rice. Benign hypertension 1072 5009 I10 Now well controlled Dyspnea 318651754 R06.00 Obtain echo to evaluate for structural /functiona l disease. Obstructiv e sleep apnea syndrome 42172692 G47.33 Compliant with nightly CPAP use Deep venou s thrombosis of lower extremity 987995124 I82.409 She is now establishe d with vascular surgery at [facility] for superficia l DVT.She is on full dose ASA vs. NOAC d/t history of hemorrhagi ng and hematuria. Essential hypertension 46477984 I10 Now well controlled Dyspnea on exertion 6084 5006 R06.09 Obtain echo to evaluate for structural /functiona l disease. 66628 Giorgi Beyer MD [facility] [address] [place] [address] 11/25/2022 15:12:47 11/25/2022 16:05:36 Hyperlipidemia 77543595 E78.5 Needs to keep LDL less than 100, and HDL more than 40.She declines all statins and other lipid lowering therapies aside from red yeast rice. Benign hypertension 1072 5009 I10 Now well controlled Dyspnea 194206761 R06.00 with Normal Left ventricula r systolic function Obstructiv e sleep apnea syndrome 39225957 G47.33 Compliant with nightly CPAP use Deep venou s thrombosis of lower extremity 588133030 I82.409 She is now establishe d with vascular surgery at [facility] for superficia l DVT.She is on full dose ASA vs. NOAC d/t history of hemorrhagi ng and hematuria. Essential hypertension 03030151 I10 Now well controlled Dyspnea on exertion 6084 5006 R06.09 Obtain echo to evaluate for structural /functiona l disease. 22898 DONNY OWEN [facility] [address] [place] [address] 06/02/2023 14:57:34 06/02/2023 15:59:01 Hyperlipidemia 14828050 E78.5 Needs to keep LDL less than 100, and HDL more than 40.She declines all statins and other lipid lowering therapies aside from red yeast rice. Benign hypertension 1072 5009 I10 BP is elevated today 180/90will start her on hydralazin e 25 mg TID daily Obstructiv e sleep apnea syndrome 07200777 G47.33 Compliant with nightly CPAP use Deep venou s thrombosis of lower extremity 553263735 I82.409 She is now establishe d with vascular surgery at [facility] for superficia l DVT.she is not on aspirin or NOAC d/t history of hemorrhagi ng and hematuria. Essential hypertension 93503809 I10 Now well controlled [id number] Giorgi Beyer MD [facility] [address] [place] [address] 02/04/2024 12:20:31 02/04/2024 12:55:51 Hyperlipidemia 34249250 E78.5 Needs to keep LDL less than 100, and HDL more than 40.She declines all statins and other lipid lowering therapies aside from red yeast rice. Benign hypertension 1072 5009 I10 BP is elevated today 180/90will start her on hydralazin e 25 mg TID daily Obstructiv e sleep apnea syndrome 85088486 G47.33 Compliant with nightly CPAP use Deep venou s thrombosis of lower extremity 188758425 I82.409 She is now establishe d with vascular surgery at [facility] for superficia l DVT. Essential hypertension 32000700 I10 Now well controlled Edema of l ower extremity 184011315 R60.0 Obtain echo to evaluate for structural /functiona l disease. [id number] Giorgi Beyer MD [facility] [place] [address] 06/05/2024 14:49:16 06/05/2024 15:26:04 Hyperlipidemia 50736500 E78.5 Needs to keep LDL less than 100, and HDL more than 40.She declines all statins and other lipid lowering therapies aside from red yeast rice. Benign hypertension 1072 5009 I10 Now well controlled Obstructiv e sleep apnea syndrome 47118226 G47.33 Compliant with nightly CPAP use Deep venou s thrombosis of lower extremity 220430127 I82.409 She is now establishe d with vascular surgery at [facility] for superficia l DVT. Essential hypertension 02608435 I10 Now well controlled Edema of l ower extremity 600784013 R60.0 Had ECHO on 03/13/24 showed LV chamber size is normal. LV wall thickness is mildly increased. The estimated LVEF is 45-50% (abnormal) . LV relaxation is impaired. Dyspnea on exertion 6084 5006 R06.09 Lexiscan Myoview stress test, pt can not walk. Has known coronary artery disease, with atypical symptoms now [id number] Giorgi Beyer MD [facility] [address] [place] [address] 09/01/2024 11:54:45 09/01/2024 13:12:59 Hyperlipidemia 21624591 E78.5 Needs to keep LDL less than 100, and HDL more than 40.She declines all statins and other lipid lowering therapies aside from red yeast rice. Benign hypertension 1072 5009 I10 Now well controlled Obstructiv e sleep apnea syndrome 97895581 G47.33 Compliant with nightly CPAP use Deep venou s thrombosis of lower extremity 322586756 I82.409 She is now establishe d with vascular surgery at [facility] for superficia l DVT. Essential hypertension 84760763 I10 Now well controlled Edema of l ower extremity 630344163 R60.0 Had ECHO on 03/13/24 showed LV chamber size is normal. LV wall thickness is mildly increased. The estimated LVEF is 45-50% (abnormal) . LV relaxation is impaired. Dyspnea on exertion 6084 5006 R06.09 Lexiscan Myoview stress test, pt can not walk. Has known coronary artery disease, with atypical symptoms now Health Concerns Section Related Observation LastModified by Organization Detai ls LastModified Time None Recorded Concern Status LastModified by Organization Details LastModified Time None Recorded Advance Directives Directive None Recorded Payers Encounter Date Sequence Insurance Name Policy Number Policy Bar Covered Member ID Bar Member ID Guarantor Name 11/25/2022 1 [employer] (MEDICARE REPLACEMENT PPO) [id number] Kendra Flores [id number] Kendra Flores 06/02/2023 1 [employer] (MEDICARE REPLACEMENT PPO) [id number] Kendra Flores [id number] Kendra Flores 02/04/2024 1 [employer] (MEDICARE REPLACEMENT PPO) [id number] Kendra Flores [id number] Kendra Flores 06/05/2024 1 [employer] (MEDICARE REPLACEMENT PPO) [id number] Kendra Flores [id number] Kendra Flores 09/01/2024 1 [employer] (MEDICARE REPLACEMENT PPO) [id number] Kendra Flores [id number] Kendra lFores Notes Date Note Type Note Provider Name and Address Organization Details Recorded Time 11/25/2022 text/html 11/25/22CC: Card iac [id number] female with a history of Obstructive Sleep Apnea on CPAP, Hypertension, breast Cancer s/p resection, uterine Cancer s/p resection, COPD, and scoliosis of spine, is here for 6 month follow-up with ECHO results. She was last seen in the clinic on 05/27/22, since then she is doing well, she gained few poundsShe denies ER visits and hospitalizations since she was last seen. Denies chest pain.Denies shortness of breath at rest. Has mild dyspnea on exertion.No orthopnea. No PNDs.Denies heart palpitations.Denies dizziness. Denies syncope or near syncope.No ankle or leg edema.No major bleeding events.No reported side effects from medications. Taking medications as prescribed with no missed doses.Denies snoring, daytime somnolence and AM headache.*Last LDL was 140 done on 08/10/21 .Pt dose not takes any statins.(She is not able to tolerate any statins or fibrates , She reports, I would rather with a heart attack than getting dementia or cancer that statins can cause . ). *Had ECHO on 06/16/22 showed LV chamber size is normal,there is normal global systolic function and contractility ,LVEF is 55-60%,there is mild tricuspid regurgitation. She was on Cardizem 240, but when was increased to 360, but then had more dyspnea on exertion Pt found to be allergic to ARB with tongue swollen, prednisone was givenafter she stopped this medication her BP went up (BP 171/82, wrist 192/92) SHE IS ALLERGIC TO LATEX. States that had another reaction to Latex recently and had to present to urgent care because of that. Pt had radiation therapy for breast ca. She does have more ESPINAL. Her pulmonary doctor follows nodule in her lungs. He did BNP which was borderline.She denies ER visits and hospitalizations since she was last seen. She had surgery in November 2020 for breast implant removal d/t pain and deformity which was previously placed following breast cancer. She reports her also recently had shoulder surgery. She admits she is inactive d/t orthopedic issues. She reports she had a fall 2/2 her swelling in her left leg. She was then evaluated by her primary doctor who referred her to vascular surgery at [facility]. A venous doppler was done which showed the superficial DVT. She was started on full dose ASA vs. blood thinner per vascular surgery. She has established follow-up with vascular surgery at [facility]. Pt was on Losartan and she received message from [employer] that her lot number was recalled due to CA. She was started on Lisinopril 11/09/2018. she reports chronic cough. She was started on Isosorbide Mononitrate 30 mg qd and states she had a reaction to this medication, causing her to have blood loss. She took the medication for 2 weeks and continued to notice blood loss and stopped the medication. She does not want to start this medication again. She has been taking Ranexa for 3 years and had relief of her chest pressure in the past. She decreased Ranexa to 500 BID and reports symptoms have slowly returned. She has since increased Ranexa back to 1000 BID, but is now having side effects of constipation. She was on fish oil and fibrates in the past for TG but had significant reflux. She was on Zetia too and has not been able to tolerate it. She gets Q [address] scans. She has a history of 2x cancers and histoplasmosis in the past. She also has COPD and does have some chronic ESPINAL. She uses Proair and Flovent with minimal relief. Results from this visit, or from the past:LIPIDS (08/11/21): TC 224, HDL 42, LDL 140, TG 271 CHEM (08/11/21): HGB 13.2, CR 0.79, K 4.9*Had negative stress test done in 04/22/20 with EF 44% She denies ER visits and hospitalizations since she was last seen. *Had venous doppler done in 11/17/18 showed No evidence of acute deep vein thrombosis in the right lower extremity. Evidence of old thrombophlebitis and branches of the greater saphenous vein in the calf and in the right lesser saphenous vein. There is evidence of venous valve reflux in the right greater saphenous vein. Had negative stress test done in 04/22/20 with EF 44% .LIPIDS 01/16/2019 TC 234, HDL 51, LDL 149 12/12/17: Na 141 ,K 4.9 , CL 103 ,CO2 28 ,GLU 106 ,BUN 18 ,CR 0.89 ,TC 213, TG 162 ,HDL 52 ,LDL 131 ,AST 16 ,ALT 17, HB 13.3, HT 40.4 01/11/17: LDL 128, HDL 53, TC 223, Tri 209 03/30/16 : GLU-86 BUN-20 CR-0.80 N-141 K-4.2 CL-103 CO2-28 AST-14 ALT-18 03/30/16 : TC- 240 HDL-52 TR-307 LDL-12 06/12/15 SOD 138, K 4.7, CL 101, Co2 31, GLU 89, BUN 22, CR 0.90. 01/09/15 : TC 234. TG 282. LDL 132. HDL 46. AST 15. ALT 18 . Vit D 27. US, echocardiogram 07-21-2020 ECHO 07/21/20:LV chamber size is normal,LV wall thickness is mildly increased,LV systolic function is normal,the estimated LVEF is treadmill nuclear stress test (PROC) 04-22-2020 04/22/20 TDM: Negative stress test. TDS. Exercise tolerance: Very poor. 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 P:normal. QRS: low voltage in precordial leads. ST-T: normal. conclusion: ECG without significant abnormalities. 04/22/20 TDM: Negative stress test. TDS. Exercise tolerance: Very poor. LVEF 44%. Treadmill Nuclear Stress Test 12/15/17 : Negative stress test for ischemia. Normal LV systolic function. Artifact noted. Compared to last study in 03/22 there are no changes. LVEF 55%. LILIANA: 03/10/15 Negative lexiscan stress test for ischemia. Normal LV systolic function. Abnormal stress test. Adequate stress with lexiscan. Calculated EF 51%. 12/16/17 ECHO: Study quality: Suboptimal ,limited. Technical limitations- poor acoustic window. LV chamber size is normal. LV wall thickness is normal. There is normal global systolic function and contractility. The estimated left ventricle ejection fraction is 55-60%(normal). Left atrial pressure and diastolic dysfunction grade cannot be determine. There is mild mitral regurgitation. ECHO 05/10/15 : Definity contrast agent used to visually enhanced endocardial wall motion and contractility , mild concentric LVH, Normal Left Ventricular Systolic Function , EF 55-60%. Giorgi Beyer MD [address] [place], [address], [facility] 11/25/2022 15:58:42 06/02/2023 text/html 06/02/23CC: Card iac follow-up dyspnea on [id number] female with a history of Obstructive Sleep Apnea on CPAP, Hypertension, breast Cancer s/p resection, uterine Cancer s/p resection, COPD, and scoliosis of spine, is here for 6 month follow-up. She was last seen in the clinic on 11/25/22, since then she is doing well. She denied chest pain dyspnea on exertion. LDL is 139 and she is not taking any medication for it and refusing,She denies ER visits and hospitalizations since she was last seen. Denies chest pain. no ccDenies shortness of breath at rest. Has mild dyspnea on exertion.No orthopnea. No PNDs.Denies heart palpitations.Denies dizziness. Denies syncope or near syncope.No ankle or leg edema.No major bleeding events.No reported side effects from medications. Taking medications as prescribed with no missed doses.Denies snoring, daytime somnolence and AM headache.*Last LDL was 139 done on 10/18/22 .Pt dose not takes any statins.(She is not able to tolerate any statins or fibrates , She reports, I would rather with a heart attack than getting dementia or cancer that statins can cause . ). Previously:*Had ECHO on 06/16/22 showed LV chamber size is normal,there is normal global systolic function and contractility ,LVEF is 55-60%,there is mild tricuspid regurgitation. She was on Cardizem 240, but when was increased to 360, but then had more dyspnea on exertion Pt found to be allergic to ARB with tongue swollen, prednisone was givenafter she stopped this medication her BP went up (BP 171/82, wrist 192/92) SHE IS ALLERGIC TO LATEX. States that had another reaction to Latex recently and had to present to urgent care because of that. Pt had radiation therapy for breast ca. She does have more ESPINAL. Her pulmonary doctor follows nodule in her lungs. He did BNP which was borderline.She denies ER visits and hospitalizations since she was last seen. She had surgery in November 2020 for breast implant removal d/t pain and deformity which was previously placed following breast cancer. She reports her also recently had shoulder surgery. She admits she is inactive d/t orthopedic issues. She reports she had a fall 2/2 her swelling in her left leg. She was then evaluated by her primary doctor who referred her to vascular surgery at [facility]. A venous doppler was done which showed the superficial DVT. She was started on full dose ASA vs. blood thinner per vascular surgery. She has established follow-up with vascular surgery at [facility]. Pt was on Losartan and she received message from [employer] that her lot number was recalled due to CA. She was started on Lisinopril 11/09/2018. she reports chronic cough. She was started on Isosorbide Mononitrate 30 mg qd and states she had a reaction to this medication, causing her to have blood loss. She took the medication for 2 weeks and continued to notice blood loss and stopped the medication. She does not want to start this medication again. She has been taking Ranexa for 3 years and had relief of her chest pressure in the past. She decreased Ranexa to 500 BID and reports symptoms have slowly returned. She has since increased Ranexa back to 1000 BID, but is now having side effects of constipation. She was on fish oil and fibrates in the past for TG but had significant reflux. She was on Zetia too and has not been able to tolerate it. She gets Q [address] scans. She has a history of 2x cancers and histoplasmosis in the past. She also has COPD and does have some chronic ESPINAL. She uses Proair and Flovent with minimal relief. Results from this visit, or from the past:LIPIDS (08/11/21): TC 224, HDL 42, LDL 140, TG 271 CHEM (08/11/21): HGB 13.2, CR 0.79, K 4.9*Had negative stress test done in 04/22/20 with EF 44% She denies ER visits and hospitalizations since she was last seen. *Had venous doppler done in 11/17/18 showed No evidence of acute deep vein thrombosis in the right lower extremity. Evidence of old thrombophlebitis and branches of the greater saphenous vein in the calf and in the right lesser saphenous vein. There is evidence of venous valve reflux in the right greater saphenous vein. Had negative stress test done in 04/22/20 with EF 44% .LIPIDS 01/16/2019 TC 234, HDL 51, LDL 149 12/12/17: Na 141 ,K 4.9 , CL 103 ,CO2 28 ,GLU 106 ,BUN 18 ,CR 0.89 ,TC 213, TG 162 ,HDL 52 ,LDL 131 ,AST 16 ,ALT 17, HB 13.3, HT 40.4 01/11/17: LDL 128, HDL 53, TC 223, Tri 209 03/30/16 : GLU-86 BUN-20 CR-0.80 N-141 K-4.2 CL-103 CO2-28 AST-14 ALT-18 03/30/16 : TC- 240 HDL-52 TR-307 LDL-12 06/12/15 SOD 138, K 4.7, CL 101, Co2 31, GLU 89, BUN 22, CR 0.90. 01/09/15 : TC 234. TG 282. LDL 132. HDL 46. AST 15. ALT 18 . Vit D 27. US, echocardiogram 07-21-2020 ECHO 07/21/20:LV chamber size is normal,LV wall thickness is mildly increased,LV systolic function is normal,the estimated LVEF is treadmill nuclear stress test (PROC) 04-22-2020 04/22/20 TDM: Negative stress test. TDS. Exercise tolerance: Very poor. 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 P:normal. QRS: low voltage in precordial leads. ST-T: normal. conclusion: ECG without significant abnormalities. 04/22/20 TDM: Negative stress test. TDS. Exercise tolerance: Very poor. LVEF 44%. Treadmill Nuclear Stress Test 12/15/17 : Negative stress test for ischemia. Normal LV systolic function. Artifact noted. Compared to last study in 03/22 there are no changes. LVEF 55%. LILIANA: 03/10/15 Negative lexiscan stress test for ischemia. Normal LV systolic function. Abnormal stress test. Adequate stress with lexiscan. Calculated EF 51%. 12/16/17 ECHO: Study quality: Suboptimal ,limited. Technical limitations- poor acoustic window. LV chamber size is normal. LV wall thickness is normal. There is normal global systolic function and contractility. The estimated left ventricle ejection fraction is 55-60%(normal). Left atrial pressure and diastolic dysfunction grade cannot be determine. There is mild mitral regurgitation. ECHO 05/10/15 : Definity contrast agent used to visually enhanced endocardial wall motion and contractility , mild concentric LVH, Normal Left Ventricular Systolic Function , EF 55-60%. DONNY doshi [place] - [facility] 06/02/2023 15:54:55 02/04/2024 text/html 02/04/24CC: Card iac follow-up , dyspnea on [id number] female with a history of Obstructive Sleep Apnea on CPAP, Hypertension, breast Cancer s/p resection, uterine Cancer s/p resection, COPD, and scoliosis of spine, is here for follow-up. She was last seen in the clinic on 06/02/23, since then she is doing wellShe denies ER visits and hospitalizations since she was last seen. Today reports: CC: pt states no concerns at this timeDenies chest pain.Denies shortness of breath at rest. Has mild dyspnea on exertion.No orthopnea. No PNDs.Denies heart palpitations.Denies dizziness. Denies syncope or near syncope.No ankle or leg edema.No major bleeding events.No reported side effects from medications. Taking medications as prescribed with no missed doses.Denies snoring, daytime somnolence and AM headache.*Last LDL was 118 done on 10/19/23.Pt dose not takes any statins.(She is not able to tolerate any statins or fibrates , She reports, I would rather with a heart attack than getting dementia or cancer that statins can cause . ). Previously:*Had ECHO on 06/16/22 showed LV chamber size is normal,there is normal global systolic function and contractility ,LVEF is 55-60%,there is mild tricuspid regurgitation. She was on Cardizem 240, but when was increased to 360, but then had more dyspnea on exertion *Pt found to be allergic to ARB with tongue swollen, prednisone was givenafter she stopped this medication her BP went up (BP 171/82, wrist 192/92) SHE IS ALLERGIC TO LATEX. States that had another reaction to Latex recently and had to present to urgent care because of that. Pt had radiation therapy for breast ca. She does have more ESPINAL. Her pulmonary doctor follows nodule in her lungs. He did BNP which was borderline.She denies ER visits and hospitalizations since she was last seen. She had surgery in November 2020 for breast implant removal d/t pain and deformity which was previously placed following breast cancer. She reports her also recently had shoulder surgery. Pt was on Losartan and she received message from [employer] that her lot number was recalled due to CA. She was started on Lisinopril 11/09/2018. she reports chronic cough. She has been taking Ranexa for 3 years and had relief of her chest pressure in the past. She decreased Ranexa to 500 BID and reports symptoms have slowly returned. She has since increased Ranexa back to 1000 BID, but is now having side effects of constipation. She was on fish oil and fibrates in the past for TG but had significant reflux. She was on Zetia too and has not been able to tolerate it. She gets Q [address] She has a history of 2x cancers and histoplasmosis in the past. She also has COPD and does have some chronic ESPINAL. She uses Proair and Flovent with minimal relief. Results from this visit, or from the past:LIPIDS (08/11/21): TC 224, HDL 42, LDL 140, TG 271 CHEM (08/11/21): HGB 13.2, CR 0.79, K 4.9*Had negative stress test done in 04/22/20 with EF 44% She denies ER visits and hospitalizations since she was last seen. *Had venous doppler done in 11/17/18 showed No evidence of acute deep vein thrombosis in the right lower extremity. Evidence of old thrombophlebitis and branches of the greater saphenous vein in the calf and in the right lesser saphenous vein. There is evidence of venous valve reflux in the right greater saphenous vein. Had negative stress test done in 04/22/20 with EF 44% .LIPIDS 01/16/2019 TC 234, HDL 51, LDL 149 12/12/17: Na 141 ,K 4.9 , CL 103 ,CO2 28 ,GLU 106 ,BUN 18 ,CR 0.89 ,TC 213, TG 162 ,HDL 52 ,LDL 131 ,AST 16 ,ALT 17, HB 13.3, HT 40.4 01/11/17: LDL 128, HDL 53, TC 223, Tri 209 03/30/16 : GLU-86 BUN-20 CR-0.80 N-141 K-4.2 CL-103 CO2-28 AST-14 ALT-18 03/30/16 : TC- 240 HDL-52 TR-307 LDL-12 06/12/15 SOD 138, K 4.7, CL 101, Co2 31, GLU 89, BUN 22, CR 0.90. 01/09/15 : TC 234. TG 282. LDL 132. HDL 46. AST 15. ALT 18 . Vit D 27. US, echocardiogram 07-21-2020 ECHO 07/21/20:LV chamber size is normal,LV wall thickness is mildly increased,LV systolic function is normal,the estimated LVEF is treadmill nuclear stress test (PROC) 04-22-2020 04/22/20 TDM: Negative stress test. TDS. Exercise tolerance: Very poor. 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 P:normal. QRS: low voltage in precordial leads. ST-T: normal. conclusion: ECG without significant abnormalities. 04/22/20 TDM: Negative stress test. TDS. Exercise tolerance: Very poor. LVEF 44%. Treadmill Nuclear Stress Test 12/15/17 : Negative stress test for ischemia. Normal LV systolic function. Artifact noted. Compared to last study in 03/22 there are no changes. LVEF 55%. LILIANA: 03/10/15 Negative lexiscan stress test for ischemia. Normal LV systolic function. Abnormal stress test. Adequate stress with lexiscan. Calculated EF 51%. 12/16/17 ECHO: Study quality: Suboptimal ,limited. Technical limitations- poor acoustic window. LV chamber size is normal. LV wall thickness is normal. There is normal global systolic function and contractility. The estimated left ventricle ejection fraction is 55-60%(normal). Left atrial pressure and diastolic dysfunction grade cannot be determine. There is mild mitral regurgitation. ECHO 05/10/15 : Definity contrast agent used to visually enhanced endocardial wall motion and contractility , mild concentric LVH, Normal Left Ventricular Systolic Function , EF 55-60%. Giorgi Beyer MD [address] [place], [address], [place] - [facility] 02/04/2024 12:52:25 06/05/2024 text/html 06/05/24CC: Card iac [id number] female with a history of Obstructive Sleep Apnea on CPAP, Hypertension, breast Cancer s/p resection, uterine Cancer s/p resection, COPD, and scoliosis of spine, is here for 3 month follow-up with ECHO results. She was last seen in the clinic on 02/04/24, since then she Had ECHO on 03/13/24 showed LV chamber size is normal. LV wall thickness is mildly increased. The estimated LVEF is 45-50% (abnormal). LV relaxation is impaired.She denies ER visits and hospitalizations since she was last seen. Today reports:swelling in foot going to food production supervisor for itDenies chest pain.Denies shortness of breath at rest. Has mild dyspnea on exertion.No orthopnea. No PNDs.Denies heart palpitations.Denies dizziness. Denies syncope or near syncope.No ankle or leg edema.No major bleeding events.No reported side effects from medications. Taking medications as prescribed with no missed doses.Denies snoring, daytime somnolence and AM headache.*Last LDL was 113 done on 02/01/24.Pt dose not takes any statins. *Had ECHO on 03/13/24 showed LV chamber size is normal. LV wall thickness is mildly increased. The estimated LVEF is 45-50% (abnormal). LV relaxation is impaired. Left Atrium chamber is mildly dilated. The aortic valve is mildly calcified. There is mild aortic root calcification. The mitral valve leaflet is mildly thickened. There is mild mitral annular calcification. There is mild mitral regurgitation. There is mild mitral stenosis. There is mild tricuspid regurgitation. Mild elevation of estimated RV systolic pressure. Estimated RVSP systolic pressure is 42.87 mmHg. There is minimal pulmonic regurgitation. Previously:(She is not able to tolerate any statins or fibrates , She reports, I would rather with a heart attack than getting dementia or cancer that statins can cause . ). *Pt found to be allergic to ARB with tongue swollen, prednisone was givenafter she stopped this medication her BP went up (BP 171/82, wrist 192/92) SHE IS ALLERGIC TO LATEX. States that had another reaction to Latex recently and had to present to urgent care because of that. Pt had radiation therapy for breast ca. She does have more ESPINAL. Her pulmonary doctor follows nodule in her lungs. He did BNP which was borderline. She had surgery in November 2020 for breast implant removal d/t pain and deformity which was previously placed following breast cancer. She reports her also recently had shoulder surgery. Results from this visit, or from the past:LIPIDS (08/11/21): TC 224, HDL 42, LDL 140, TG 271 CHEM (08/11/21): HGB 13.2, CR 0.79, K 4.9*Had negative stress test done in 04/22/20 with EF 44% She denies ER visits and hospitalizations since she was last seen. *Had venous doppler done in 11/17/18 showed No evidence of acute deep vein thrombosis in the right lower extremity. Evidence of old thrombophlebitis and branches of the greater saphenous vein in the calf and in the right lesser saphenous vein. There is evidence of venous valve reflux in the right greater saphenous vein. Had negative stress test done in 04/22/20 with EF 44% .LIPIDS 01/16/2019 TC 234, HDL 51, LDL 149 12/12/17: Na 141 ,K 4.9 , CL 103 ,CO2 28 ,GLU 106 ,BUN 18 ,CR 0.89 ,TC 213, TG 162 ,HDL 52 ,LDL 131 ,AST 16 ,ALT 17, HB 13.3, HT 40.4 01/11/17: LDL 128, HDL 53, TC 223, Tri 209 03/30/16 : GLU-86 BUN-20 CR-0.80 N-141 K-4.2 CL-103 CO2-28 AST-14 ALT-18 03/30/16 : TC- 240 HDL-52 TR-307 LDL-12 06/12/15 SOD 138, K 4.7, CL 101, Co2 31, GLU 89, BUN 22, CR 0.90. 01/09/15 : TC 234. TG 282. LDL 132. HDL 46. AST 15. ALT 18 . Vit D 27. US, echocardiogram 07-21-2020 ECHO 07/21/20:LV chamber size is normal,LV wall thickness is mildly increased,LV systolic function is normal,the estimated LVEF is treadmill nuclear stress test (PROC) 04-22-2020 04/22/20 TDM: Negative stress test. TDS. Exercise tolerance: Very poor. 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 P:normal. QRS: low voltage in precordial leads. ST-T: normal. conclusion: ECG without significant abnormalities. 04/22/20 TDM: Negative stress test. TDS. Exercise tolerance: Very poor. LVEF 44%. Treadmill Nuclear Stress Test 12/15/17 : Negative stress test for ischemia. Normal LV systolic function. Artifact noted. Compared to last study in 03/22 there are no changes. LVEF 55%. LILIANA: 03/10/15 Negative lexiscan stress test for ischemia. Normal LV systolic function. Abnormal stress test. Adequate stress with lexiscan. Calculated EF 51%. 12/16/17 ECHO: Study quality: Suboptimal ,limited. Technical limitations- poor acoustic window. LV chamber size is normal. LV wall thickness is normal. There is normal global systolic function and contractility. The estimated left ventricle ejection fraction is 55-60%(normal). Left atrial pressure and diastolic dysfunction grade cannot be determine. There is mild mitral regurgitation. ECHO 05/10/15 : Definity contrast agent used to visually enhanced endocardial wall motion and contractility , mild concentric LVH, Normal Left Ventricular Systolic Function , EF 55-60%. Giorgi Beyer MD [address] [place], [address], [place] - [facility] 06/05/2024 15:21:01 09/01/2024 text/html 09/01/24CC: Card iac [id number]-old female with a history of Obstructive Sleep Apnea on CPAP, Hypertension, breast Cancer s/p resection, uterine Cancer s/p resection, COPD, and scoliosis of spine, is here for 3 month follow-up. She was last seen in the clinic on 06/05/24, since then she is getting foot surgeryShe denies ER visits and hospitalizations since she was last seen. Today reports:Denies chest pain.Denies shortness of breath at rest. Has mild dyspnea on exertion.No orthopnea. No PNDs.Denies heart palpitations.Denies dizziness. Denies syncope or near syncope.No ankle or leg edema.No major bleeding events.No reported side effects from medications. Taking medications as prescribed with no missed doses.Denies snoring, daytime somnolence and AM headache.*Last LDL was 113 done on 02/02/24.Pt dose not takes any statins. (She is not able to tolerate any statins or fibrates , She reports, I would rather with a heart attack than getting dementia or cancer that statins can cause . ). Previously:*Had ECHO on 03/13/24 showed LV chamber size is normal. LV wall thickness is mildly increased. The estimated LVEF is 45-50% (abnormal). LV relaxation is impaired. Left Atrium chamber is mildly dilated. The aortic valve is mildly calcified. There is mild aortic root calcification. The mitral valve leaflet is mildly thickened. There is mild mitral annular calcification. There is mild mitral regurgitation. There is mild mitral stenosis. There is mild tricuspid regurgitation. Mild elevation of estimated RV systolic pressure. Estimated RVSP systolic pressure is 42.87 mmHg. There is minimal pulmonic regurgitation. *Pt found to be allergic to ARB with tongue swollen, prednisone was givenafter she stopped this medication her BP went up (BP 171/82, wrist 192/92) SHE IS ALLERGIC TO LATEX. States that had another reaction to Latex recently and had to present to urgent care because of that. Pt had radiation therapy for breast ca. She does have more ESPINAL. Her pulmonary doctor follows nodule in her lungs. He did BNP which was borderline. She had surgery in November 2020 for breast implant removal d/t pain and deformity which was previously placed following breast cancer. She reports her also recently had shoulder surgery. Results from this visit, or from the past:LIPIDS (08/11/21): TC 224, HDL 42, LDL 140, TG 271 CHEM (08/11/21): HGB 13.2, CR 0.79, K 4.9*Had negative stress test done in 04/22/20 with EF 44% She denies ER visits and hospitalizations since she was last seen. *Had venous doppler done in 11/17/18 showed No evidence of acute deep vein thrombosis in the right lower extremity. Evidence of old thrombophlebitis and branches of the greater saphenous vein in the calf and in the right lesser saphenous vein. There is evidence of venous valve reflux in the right greater saphenous vein. Had negative stress test done in 04/22/20 with EF 44% .LIPIDS 01/16/2019 TC 234, HDL 51, LDL 149 12/12/17: Na 141 ,K 4.9 , CL 103 ,CO2 28 ,GLU 106 ,BUN 18 ,CR 0.89 ,TC 213, TG 162 ,HDL 52 ,LDL 131 ,AST 16 ,ALT 17, HB 13.3, HT 40.4 01/11/17: LDL 128, HDL 53, TC 223, Tri 209 03/30/16 : GLU-86 BUN-20 CR-0.80 N-141 K-4.2 CL-103 CO2-28 AST-14 ALT-18 03/30/16 : TC- 240 HDL-52 TR-307 LDL-12 06/12/15 SOD 138, K 4.7, CL 101, Co2 31, GLU 89, BUN 22, CR 0.90. 01/09/15 : TC 234. TG 282. LDL 132. HDL 46. AST 15. ALT 18 . Vit D 27. US, echocardiogram 07-21-2020 ECHO 07/21/20:LV chamber size is normal,LV wall thickness is mildly increased,LV systolic function is normal,the estimated LVEF is treadmill nuclear stress test (PROC) 04-22-2020 04/22/20 TDM: Negative stress test. TDS. Exercise tolerance: Very poor. 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 P:normal. QRS: low voltage in precordial leads. ST-T: normal. conclusion: ECG without significant abnormalities. 04/22/20 TDM: Negative stress test. TDS. Exercise tolerance: Very poor. LVEF 44%. Treadmill Nuclear Stress Test 12/15/17 : Negative stress test for ischemia. Normal LV systolic function. Artifact noted. Compared to last study in 03/22 there are no changes. LVEF 55%. LILIANA: 03/10/15 Negative lexiscan stress test for ischemia. Normal LV systolic function. Abnormal stress test. Adequate stress with lexiscan. Calculated EF 51%. 12/16/17 ECHO: Study quality: Suboptimal ,limited. Technical limitations- poor acoustic window. LV chamber size is normal. LV wall thickness is normal. There is normal global systolic function and contractility. The estimated left ventricle ejection fraction is 55-60%(normal). Left atrial pressure and diastolic dysfunction grade cannot be determine. There is mild mitral regurgitation. ECHO 05/10/15 : Definity contrast agent used to visually enhanced endocardial wall motion and contractility , mild concentric LVH, Normal Left Ventricular Systolic Function , EF 55-60%. Giorgi Beyer MD [address] [place], [address], [facility] - [facility] 09/01/2024 13:00:13 OBGyn Episode No OBEpisode recorded.
--- OUTSIDE RECORDS SUMMARY | 2024-11-30 15:13 | XMS_ITS | Clinical Summary ---
Author Organization [facility] Address [address] [place] [address] Care Team Providers Care Round Boner Name Role Phone Sofia Roper MD Unavailable [phone] Fabian Lizama MD Unavailable [phone] Gerardo Dixon DO Primary Care Provider [phone] Giorgi Beyer MD Unavailable [phone] Lore Richardson Unavailable [phone] Allergies Active Allergy Reactions Criticality Noted Date Comments Adhesive Rash Medium Clarithromycin Diarrhea,Other (See comments),Stomach upset,Nausea & Vomiting Medium 05/06/2015 Reaction:Stomach Cramp Isosorbide Mononitrate Other (See comments) Low 10/2018 Extreme Bleeding(bladder) Latex Shortness of breath High Latex, Natural Rubber Shortness of breath,Other (See comments) High 06/18/2024 Levofloxacin Other (See comments) High Reaction:Ruptured tendon Meperidine Headache,Nausea & Vomiting Low 04/05/2018 Moxifloxacin Dizziness Medium Medications magnesium oxide (MAG-OX) 400 mg (241.3 mg elemental magnesium) tabletIndicati ons:hypomagnes emia Take 1 tablet (400 mg total) by mouth daily with breakfast Active cyclobenzaprin e (FLEXERIL) 10 mg tabletIndicati ons:Muscle Spasm Take 1 tablet (10 mg total) by mouth 3 (three) times a day as needed for muscle spasms Active guaiFENesin ER (MUCINEX) 600 mg 12 hr tabletIndicati ons:Cold Symptoms,Cough Take 1 tablet (600 mg total) by mouth every 12 hours as needed for cough or congestion Active loratadine (CLARITIN) 10 mg tabletIndicati ons:Allergic Rhinitis Take 1 tablet (10 mg total) by mouth once daily as needed for allergies Active clindamycin (CLEOCIN T) 1 % lotionIndicati ons:Acne Rosacea Apply 1 application (deactivated) topically daily as needed (face) 020 Active albuterol HFA (PROVENTIL HFA,VENTOLIN HFA,PROAIR HFA) 90 mcg/actuation inhalerIndicat ions:Acute Asthma Attack Inhale 1 puff every 4 (four) hours as needed for shortness of breath Activ e diclofenac epolamine (FLECTOR) 1.3 %Indications:b ack pain Place 1 patch on the skin daily as needed (back pain) Active dilTIAZem XR (CARDIZEM CD,DILACOR XR) 240 mg 24 hr capsuleIndicat ions:hypertens ion Take 1 capsule (240 mg total) by mouth every morning Active nebivoloL (BYSTOLIC) 20 mg tabletIndicati ons:hypertensi on Take 1 tablet (20 mg total) by mouth nightly Active nitroglycerin (NITROSTAT) 0.4 mg SL tabletIndicati ons:acute episode of anginal pain Place 1 tablet (0.4 mg total) under the tongue every 5 (five) minutes as needed Active potassium chloride ER (KLOR-CON) 10 mEq CR tabletIndicati ons:hypokalemi a prevention Take 1 tablet/capsule (10 mEq total) by mouth 2 (two) times a day Activ e Trelegy Ellipta 200-62.5-25 mcg inhalerIndicat ions:COPD Inhale 1 puff every morning copd 022 Active cholecalcifero l (VITAMIN D-3) 2000 unit capsuleIndicat ions:bone health Take 1 capsule (2,000 Units total) by mouth daily after lunch Active acetaminophen (TYLENOL) 500 mg tabletIndicati ons:Pain Take 2 tablets (1,000 mg total) by mouth every 6 (six) hours 30 tablet 022 Active montelukast (SINGULAIR) 10 mg tabletIndicati ons:Seasonal Allergic Rhinitis Take 1 tablet (10 mg total) by mouth daily 024 Active PARoxetine (PAXIL) 10 mg tabletIndicati ons:anxiety Take 0.5 tablets (5 mg total) by mouth as needed (as needed) 024 Active Eliquis 5 mg tabletIndicati ons:Venous Thrombosis Take 1 tablet (5 mg total) by mouth 2 (two) times a day 024 Active calcium carbonate (OS-LUIS EDUARDO) 648 mg (260 mg elemental) tabletIndicati ons:bone health Take 260 mg by mouth daily after lunch Calcium- pt unsure of dose s Active famotidine (PEPCID) 10 mg tabletIndicati ons:gastroesop hageal reflux disease,stomac h Take 1 tablet (10 mg total) by mouth as needed for heartburn Active loperamide (IMODIUM) 2 mg capsuleIndicat ions:diarrhea Take 1 capsule (2 mg total) by mouth 4 (four) times a day as needed for diarrhea Active diphenhydrAMIN E 25 mg capsuleIndicat ions:allergies /itching Take 1 tablet/capsule (25 mg total) by mouth nightly as needed for itching Active heparin (heparin flush) 10 unit/mL syringeIndicat ions:Maintain Patency of Indwelling Vascular Catheter Administer 5 mL (50 Units total) into IV catheter as needed (catheter maintenance) 025 Active doxycycline monohydrate (MONODOX) 100 mg capsuleIndicat ions:Bone/Join t Infection Take 1 capsule by mouth 2 (two) times a day 025 Active fluconazole (DIFLUCAN) 150 mg tablet TAKE 1 TABLET BY MOUTH A ONE TIME DOSE 025 Active sucralfate (CARAFATE) 1 gram tabletIndicati ons:gastroesop hageal reflux disease Take 1 g by mouth 4 (four) times a day. Indications: gastroesophageal reflux disease Active lactobacillus comb no.10 20 billion cell capsuleIndicat ions:indigesti on Take 1 capsule by mouth daily. Indications: indigestion Active amoxicillin 500 mg capsule TAKE FOUR CAPSULES BY MOUTH ONE HOUR BEFORE APPOINTMENT 025 Active multivitamin tabletIndicati ons:Vitamin Deficiency Prevention Take 1 tablet by mouth daily. Indications: treatment to prevent vitamin deficiency Active ascorbic acid (VITAMIN C) 1,000 mg tabletIndicati ons:Vitamin C Deficiency Take 1,000 mg by mouth daily. Indications: inadequate vitamin C Active coenzyme Q10 100 mg capsuleIndicat ions:deficienc y Take 100 mg by mouth daily. Indications: deficiency Active vitamin B complex capsuleIndicat ions:Vitamin Deficiency Prevention Take 1 capsule by mouth daily. Indications: treatment to prevent vitamin deficiency Active vit A,C and C-qktdob-afxfw als (OCUVITE with LUTEIN) 300 mcg-200 mg-27 mg-2 mg tabletIndicati ons:Vitamin Deficiency Prevention Take 1 tablet by mouth daily. Indications: treatment to prevent vitamin deficiency Active zinc gluconate 50 mg tabletIndicati ons:Zinc Deficiency Take 50 mg by mouth daily. Indications: deficiency of zinc Active sodium chloride 0.9% injectionIndic ations:Maintai n Patency of Indwelling Vascular Catheter [The details of the medication are not available because there are pending changes by a home health clinician.] 025 2024 Discontinued Active Problems Problem Noted Date Diagnosed Date S/P foot surgery, right 09/26/2024 Overview (09/26/2024): Incision and debridement osteomyelitis right 5th metatarsal head with bone biopsy, 09/11/2024, Dr. Enriquez Assessment & Plan (10/11/2024 1:35 PM MANAGER VISUAL): Patient is doing well overall. Patient will continue to keep the surgical site clean and dry. I feel her incision site is getting macerated due to excessive bandaging. We will stop wrapping the incision site and using Band-Aids, and we will start letting it breathe and using just a plain white sock. She will continue to monitor for drainage from the site. Continue IV antibiotics. We recommended using mole skin to help pad the incision site from rubbing. She will follow up with Dr. Enriquez in 2 weeks for a wound check. She expressed understanding and agreement with the plan. Assessment & Plan (09/26/2024 3:46 PM MANAGER VISUAL): Patient is doing well overall. The incision site was evaluated by Dr. Enriquez. Patient will continue to keep the surgical site clean and dry. She will continue to monitor for drainage from the site. Continue IV antibiotics. We recommended using mole skin to help pad the incision site so that the boot does not rub on the incision. She will follow up with me in 2 weeks for a wound check. She expressed understanding and agreement with the plan. Osteomyelitis of ankle or foot, right, acute 11/2024 Osteomyelitis of right foot 08/20/2024 Closed displaced fracture of fifth metatarsal bone of right foot 08/20/2024 Encounter for screening colonoscopy 03/21/2024 Breast mass 11/01/2021 Deformity of reconstructed breast 08/28/2021 Overview (08/28/2021): Added automatically from request for surgery [id number] History of breast cancer in female 09/01/2020 Overview (09/01/2020): Added automatically from request for surgery [id number] Antinuclear antibody (NAWAF) positive 03/01/2019 Mass of left lung 03/28/2018 Vaginal atrophy 03/17/2018 Chest discomfort 06/21/2017 Chronic obstructive pulmonary disease 11/25/2016 History of histoplasmosis 11/25/2016 Encounter for postoperative care 11/19/2015 History of total knee arthroplasty, right 2015 Peripheral neuropathy 11/19/2015 Chronic sinusitis 11/12/2015 Malignant neoplasm of uterus 11/12/2015 Overview (06/18/2024): s/p resection Spinal injury 11/12/2015 Gastroesophageal reflux disease 11/12/2015 Malignant neoplasm of endometrium 06/25/2015 Cancer Staging:Pathologic:FIGO Stage IA(T1a, N0, cM0) - Signed by Erasmo Goins MD on 03/16/2018 Assessment & Plan (03/16/2018 2:34 PM CDT): -no evidence of disease -recent CT also confirms no evidence of disease. Dysuria 11/11/2014 Increased frequency of urination 11/11/2014 Malignant neoplasm of breast 11/06/2014 Overview (06/18/2024): s/p resection Obstructive sleep apnea syndrome 09/12/2014 Overview (06/18/2024): on CPAP, [facility] Cephalalgia 09/12/2014 Benign hypertension 08/09/2014 Asthma 08/09/2014 Postmenopausal bleeding 08/09/2014 Chest pain 05/03/2014 Overview (11/11/2016): Chest pain Obesity 05/03/2014 Overview (03/16/2018): Obesity Hyperlipidemia 05/03/2014 Overview (03/16/2018): Hyperlipidemia Dyspnea on exertion 05/03/2014 Overview (03/16/2018): Shortness of breath Unspecified urinary incontinence 06/27/2012 Anxiety 06/27/2012 Scoliosis deformity of spine 05/30/2012 Acquired deformity of ankle and foot 08/17/2010 Anterior tibialis tendinitis 08/17/2010 Arthralgia of ankle 08/13/2010 Blood in urine 06/08/2007 Stress incontinence of urine 06/08/2007 Encounters Date Type Department Care Team Description 11/28/2024 11:00 AM CDT Home Care Visit [address] [place] [address] Chana Morales RN SN HOME VISIT 11/26/2024 Home Care Visit [address] [place] [address] Chana Morales RN TELEPHONE ENCOUNTER 11/24/2024 2:00 PM CDT Home Care Visit [address] [place] [address] Chana Morales RN SN HOME VISIT 11/21/2024 9:00 AM CDT Home Care Visit [address] [place] [address] Beulah Littlejohn LPN SN HOME VISIT 11/19/2024 1:45 PM CDT Office Visit [facility] [address] [place] [address] [place] [phone] Poncho Enriquez DO S/P excisional debridement (Primary Dx); S/P foot surgery, right 11/19/2024 11:00 AM CDT Home Care Visit [address] [place] [address] Chana Morales RN SN HOME VISIT 11/16/2024 3:36 PM CDT - 11/16/2024 11:59 PM CDT Hospital Encounter [facility] [address] [place] [address] Osteomyelitis of ankle or foot, right, acute (HCC) Discharge Disposition: Discharge to home or self care 11/15/2024 12:00 PM CDT Home Care Visit [address] [place] [address] Chana Morales RN SN OASIS RECERTIFICATION 11/15/2024 Plan of Care Documentation [address] [place] [address] 11/13/2024 3:15 PM CDT Orders Only [facility] 2 Wound Care [address] [facility] [address] [place] [address] 11/13/2024 Telephone [facility] Orthopedics and Sports Medicine [address] [place] [address] Poncho Enriquez DO status of orthodics 11/12/2024 10:00 AM CDT Home Care Visit [address] [place] [address] Chana Morales RN SN HOME VISIT 11/09/2024 1:00 PM CDT Home Care Visit [address] [place] [address] Chana Morales RN SN HOME VISIT 11/09/2024 Orders Only [facility] Infectious Disease [address] [place] [address] Miki Rodriguez MD 11/07/2024 12:00 PM CDT Home Care Visit [address] [place] [address] Chana Morales RN SN HOME VISIT 11/05/2024 1:00 PM CDT Home Care Visit [address] [place] [address] Beulah Littlejohn LPN SN HOME VISIT 11/02/2024 11:00 AM CDT Home Care Visit [address] [place] [address] Beulah Littlejohn LPN SN HOME VISIT 11/01/2024 3:00 PM CDT Office Visit [facility] Infectious Disease [address] [place] [address] [address] [place] [address] Miki Rodriguez MD Osteomyelitis of ankle or foot, right, acute (HCC) (Primary Dx) 10/31/2024 10:00 AM CDT Home Care Visit [address] [place] [address] Chana Morales RN SN HOME VISIT 10/30/2024 8:15 AM CDT Orders Only [facility] 2 Wound Care [address] [place] [address] S/P excisional debridement 10/29/2024 Telephone [facility] [address] [place] [address] [address] [place] [address] Poncho Enriquez DO PA for Orthotics 10/26/2024 1:00 PM CDT Home Care Visit [address] [place] [address] Chana Morales RN SN HOME VISIT 10/25/2024 1:45 PM CDT Office Visit [facility] Orthopedics and Sports Medicine [address] [place] [address] [address] [place] [phone] Poncho Enriquez DO S/P excisional debridement (Primary Dx) 10/24/2024 Telephone [facility] Pulmonology [address] [place] [phone] Esme Em, MICHAEL 10/22/2024 12:11 PM CDT - 10/22/2024 11:59 PM CDT Hospital Encounter [address] [address] Discharge Disposition: Discharge to home or self care 10/22/2024 11:00 AM CDT Home Care Visit [address] [address] Chana Morales RN SN HOME VISIT 10/19/2024 Orders Only [facility] Home Care Services [address] [place] [phone] Sakina Mccullough, [facility] 10/15/2024 3:30 PM CDT - 10/15/2024 11:59 PM CDT Hospital Encounter [address] [address] Discharge Disposition: Discharge to home or self care 10/15/2024 3:00 PM CDT Home Care Visit [address] [address] Rona Penaloza RN SN HOME VISIT 10/14/2024 Orders Only [facility] Services [address] [facility] [address] [place] [phone] Anjelica Pacheco, [facility] 10/11/2024 1:00 PM MANAGER VISUAL Office Visit [facility] [address] [place] [address] [address] [place] [phone] Lore Richardson PA S/P foot surgery, right (Primary Dx); Osteomyelitis of ankle or foot, right, acute (HCC) 10/09/2024 11:30 AM MANAGER VISUAL - 10/09/2024 11:59 PM MANAGER VISUAL Hospital Encounter [address] [address] Discharge Disposition: Discharge to home or self care 10/09/2024 10:00 AM MANAGER VISUAL Home Care Visit [address] [place] [address] Rona Penaloza, RN SN HOME VISIT 10/05/2024 Orders Only [facility] Infectious Disease [address] [place] [address] Miki Rodriguez MD 10/04/2024 Orders Only [facility] Infectious Disease [address] [facility] [address] [place] [address] Miki Rodriguez MD 10/02/2024 12:22 PM MANAGER VISUAL - 10/02/2024 11:59 PM MANAGER VISUAL Hospital Encounter [address] [address] Discharge Disposition: Discharge to home or self care 10/02/2024 12:00 PM MANAGER VISUAL Home Care Visit [address] [place] [address] Chana Moraels RN SN HOME VISIT 09/28/2024 3:21 PM MANAGER VISUAL - 09/28/2024 8:55 PM MANAGER VISUAL Emergency [facility] [address] [place] [address] Discharge Disposition: Left without being seen 09/26/2024 1:15 PM MANAGER VISUAL Office Visit [facility] [address] [place] [phone] Lore Richardson PA Osteomyelitis of ankle or foot, right, acute (HCC) (Primary Dx); S/P foot surgery, right 09/26/2024 Home Care Visit [address] [place] [address] Rona Penaloza, RN CASE COMMUNICATION 09/26/2024 Home Care Visit [address] [place] [address] Brittnee Rai, MICHAEL SN TRIAGE ENCOUNTER 09/25/2024 9:30 AM MANAGER VISUAL Home Care Visit [address] [place] [address] Kayla Kan, MICHAEL SN HOME VISIT 09/25/2024 9:10 AM MANAGER VISUAL - 09/25/2024 11:59 PM MANAGER VISUAL Hospital Encounter [facility] [address] [place] [address] Discharge Disposition: Discharge to home or self care 09/24/2024 Telephone [facility] Pulmonology [address] [place] [phone] Miki Rodriguez MD Medication Reaction (Left voicemail, Med recation) 09/18/2024 11:20 AM MANAGER VISUAL - 09/18/2024 11:59 PM MANAGER VISUAL Hospital Encounter [facility] [address] [place] [address] Discharge Disposition: Discharge to home or self care 09/18/2024 10:30 AM MANAGER VISUAL Home Care Visit [address] [place] [address] Kayla Kan RN SN OASIS START OF CARE 09/18/2024 Plan of Care Documentation [address] [place] [address] 09/17/2024 Orders Only [facility] Home Care Services [address] [facility] [address] [place] [phone] Jacob Vieira RPh 09/11/2024 3:06 PM MANAGER VISUAL Anesthesia Event [facility] [place] [address] [place] [address] Ildefonso Wooten MD Taylor-White, Carlotta A., NP 09/11/2024 2:55 PM MANAGER VISUAL - 09/11/2024 4:50 PM MANAGER VISUAL Surgery [facility] [place] [address] [place] [address] Poncho Enriquez DO INCISION AND DEBRIDEMENT OSTEOMYELITIS RIGHT FOOT WITH BONE BIOPSY 09/11/2024 11:10 AM MANAGER VISUAL - 09/17/2024 3:45 PM MANAGER VISUAL Hospital Encounter [address] [address] Poncho Enriquez DO Other acute osteomyelitis of right foot (HCC) (Primary Dx); Osteomyelitis of right foot, unspecified type (HCC); Closed displaced fracture of fifth metatarsal bone of right foot, initial encounter; Osteomyelitis of ankle or foot, right, acute (HCC); S/P excisional debridement Discharge Disposition: Discharge to home or self care from Last 3 Months Immunizations Immunization Administration Dates Next Due Influenza, Quadrivalent, Spl it, Preservative Free, Intramuscular 05/13/2015 Influenza, Trivalent, High D ose, Split, Preservative Free, Intramuscular 07/09/2016 Td, adsorbed 10/14/1994 Surgical History Surgery Date Site/Laterality Comments BACK SURGERY Back Surgery - (Added by TW Conv) DC EXC CYST/ABERRANT BREAST TISSUE OPEN 1/ LESION 08/08/1991 - 08/07/1992 Left Breast Surgery Lumpectomy - (Added by TW Conv) MASTECTOMY Bilateral L-2000. R-2003 SPINE SURGERY 06/08/2003 - 07/07/2003 Fusion T-9 - S1 REPLACEMENT TOTAL KNEE 09/08/2011 - 10/06/2011 Left right knee-04/2015 FOOT SURGERY 09/08/2010 - 10/05/2010 Left reattached tendon- right foot 09/2012- tendon and big toe repair and fusion CYSTOSCOPY PERCUTANEOUS NEEDLE BIOPSY LUNG LEFT HYSTERECTOMY 08/08/2014 - 08/07/2015 umbilical hernia repair same time SPINE SURGERY 08/08/2003 - 09/07/2003 anterior SPINE SURGERY 08/08/2004 - 09/07/2004 4th spinal fusion revision BLADDER SUSPENSION 08/08/2007 - 08/07/2008 BREAST RECONSTRUCTION Bilateral 2020, 2021-EXCHANGE IMPLANT LEFT BREAST TUBAL LIGATION 04/08/1983 - 05/07/1983 BREAST LUMPECTOMY 06/08/1992 - 07/07/1992 Left 04/1994- had sec time, 3rd time BREAST BIOPSY 03/08/2004 - 04/07/2004 Right BREAST IMPLANT REMOVAL 12/06/2004 - 01/05/2005 Bilateral and exchanged BREAST SURGERY [id number]- breast nipples and tatoos LUNG BIOPSY 03/08/2018 - 04/07/2018 COLONOSCOPY FOOT SURGERY 09/11/2024 Right Medical History Medical History Date Comments Hx Other Medical HTN, anxiety, d epression, warts, obesity, hyperlip; Comments: [facility] 05/03/2014 - Hx Other Medical latex allergy, tubal ligation, multiple spinal fus; Comments: [facility] 05/03/2014 - Personal history of other sp ecified conditions History of breast lump - (Ad ded by TW Conv) GERD (gastroesophageal reflux disease) Anxiety Hypertension Breast cancer, left (HCC) 1991 Recurr ent 2000.had radiation 10/1992 Uterine cancer (HCC) 2014 had surgery Shortness of breath CHF (congestive heart failure) (HCC) Asthma Pulmonary histoplasmosis Tachycardia Scoliosis Obesity Edema E-coli UTI h/o Mitral valve regurgitation Obstructive sleep apnea 2004 cpap at night History of radiation therapy 1992 [address] cancer Breast cancer, right (HCC) 2003 Anesthesia complication had trou ble breathing after Breast surgery in 2021 History of DVT (deep vein thrombosis) 06/2024 BLE Allergic rhinitis Lung disease History of pneumonia 07/13/2024 Ambulates with cane Wears glasses Osteomyelitis of right foot (HCC) has wound Peripheral neuropathy Dental crown present upper and l ower Hard to intubate Family History Medical History Relation Name Comments Prostate cancer Brother Family histo ry of prostate cancer - (Added by TW Conv) COPD Father COPD; /Family h istory of chronic obstructive pulmonary disease - (Added by TW Conv) Coronary artery disease Father Vera nary artery disease; Diabetes Father Family history of diabetes mellitus - (Added by TW Conv) Heart disease Father Heart Disease - (Added by TW Conv) Hypertension Father Family history of hypertension - (Added by TW Conv) Breast cancer Father's Sister Family hist ory of malignant neoplasm of breast - (Added by TW Conv) Cardiomyopathy Mother Cardiomyopath y; /Family history of cardiomyopathy - (Added by TW Conv) Heart disease Other Heart Disease - (Added by TW Conv) Stroke Paternal Grandmother Family history of cerebrovascular accident - (Added by TW Conv) Anesthesia problems Neg Hx Relation Name Status Comments Brother Father (Age 80) Father's Sister Mother (Age 63) Other Paternal Grandmother Social History Tobacco Use Types Packs/Day Years Used Date Smoking Tobacco: Never Smokeless Tobacco: Never Tobacco Cessation:Counseling Given: Not Answered Alcohol Use Standard Drinks/Week Comments Yes 0 [...] materials from doctor or pharmacy Never 09/18/2024 [facility] Utilities Answer Date Recorded In the [...] often do you attend chur ch or episcopalian services? 1 to 4 times per year 09/12/2024 Do you belong to any clubs o r organizations such as hindu groups, unions, fraternal or athletic groups, or [...] any time in the past 12 m [facility], were you homeless or living in a fdc (including now)? No 09/12/2024 Personal Safety Answer Date Recorded Have you ever been in or are you currently in a harmful physical or emotional relationship or is someone making you feel afraid or unsafe? Denies 09/28/2024 Comments No Sex and Gender Information Value Date Recorded Sex Assigned at Not on file Legal Sex Female 2:11 AM MANAGER VISUAL Gender Identity Female 08/26/2021 10:29 AM MANAGER VISUAL Sexual Orientation Not on file Obstetrics History Para Term AB IAB SAB Ectopic Multiple Livin g Live Births 2 2 2 2 2 Date Outcome GA Total Labor Labor/2nd/3rd Weight Sex Type Anes PTL Eloisa A1 A5 Name Clin Term Term Last Filed Vital Signs Vital Sign Reading Time Taken Comments Blood Pressure 150/96 11/28/2024 11:19 AM CDT Pulse 80 11/28/2024 11:19 AM CDT Temperature 36.4 C (97.5 F) 11/28/2024 11:19 AM CDT Respiratory Rate 20 11/28/2024 11:19 AM CDT Oxygen Saturation 96% 11/28/2024 11:19 AM CDT Inhaled Oxygen Concentration - - Weight 117.9 kg (260 lb) 11/15/2024 11:40 AM CDT Height 165.1 cm (5' 5 ) 11/01/2024 3:24 PM CDT Body Mass Index 43.27 11/01/2024 3:24 PM CDT Plan of Treatment Health Maintenance Due Date Last Done Comments Breast Cancer Screening-Mammogram 1950 Depression Screening 1950 Hepatitis C Screening 1950 Osteoporosis Screening-Bone Density Scan 1950 Hepatitis B Screening 1968 Pneumococcal vaccine 65+ (1 of 2 - PCV) 1969 DTaP/Tdap/Td Vaccine (1 - Tdap) 10/15/1994 5 Zoster Vaccine (1 of 2) 2000 Well Visit 65+ 10/14/2015 Influenza Vaccine (Season Ended) 2025 07/09/2016, 05/13/2015, 05/23/2004, Additional history exists Fall Risk Assessment 09/17/2025 09/17/2024 Colon Cancer Screening-Colonoscopy 05/16/2034 05/16/2024, 08/25/2016 Colon Cancer Screening-CT Colonography Discontinued 05/16/2024, 08/25/2016 Colon Cancer Screening-DNA Stool Discontinued 05/16/20 24, 08/25/2016 Colon Cancer Screening-FIT Discontinued 05/16/2024, Colon Cancer Screening-Sigmoidoscopy Discontinued 05/16/2024, 08/25/2016 Medical Devices Implanted Type Area Creel Cleaner Device Identifier Shelf Expiration Date Model / Serial / Lot [employer] 68-600 Natrelle 15cm Style 68mp Anterior Diaphragm Valve P5cm Moderate - [id number] - [id number] Implanted:Qty: 1 on 11/27/2020 by Dada Eid MD at [facility] Breast Right: Breast [employer] [id number] 04/20/2024 68-600 / [id number] / [id number] [employer] 68-600 Natrelle 15cm Style 68mp Anterior Diaphragm Valve P5cm Moderate - [id number] - [id number] Implanted:Qty: 1 on 11/27/2020 by Dada Eid MD at [facility] Breast Left: Breast [employer] [id number] 06/11/2024 68-600 / [id number] / [id number] [employer] Natrelle 14.7-15cm Style 68hp Round Smooth Anterior Diaphragm 68hp-800 - [id number] - [id number] Implanted:Qty: 1 on 12/21/2021 by Dada Eid MD at [facility] Breast Left: Breast [employer] [id number] 05/15/2023 68HP-800 / [id number] / [employer] [id number] Alloderm Select [id number] Allograft Regenerative Freeze Dried - S0 - [id number] Implanted:Qty: 1 on 11/27/2020 by Dada Eid MD at [facility] Other - see comments Right: Breast [employer] 07/07/2022 [id number] / 0 / [id number] Description:allorderm, [employer] [id number] Alloderm Select [id number] Allograft Regenerative Freeze Dried - S0 - [id number] Implanted:Qty: 1 on 11/27/2020 by Dada Eid MD at [facility] Other - see comments Left: Breast [employer] 07/07/2022 [id number] / 0 / [id number] Description:alloderm Lumbar Spine Fusion Hardware Spine Lumbar Pin Bilatera l: Foot Total Bilatera l: Knee Bilateral Total Knee Arthroplasty- Implanted:04/23 (Quantity not on file) Knee [employer]ocompos[employer] Stimulan Rapid Cure Kit Paste [employer] Fighting Equipment Specialist 5cc 12.5cc Bone Void 620-005 - [id number] Implanted:Qty: 1 on 09/11/2024 by Poncho Enriquez DO at [facility] [employer] 04/07/2027 620-005 / / [id number] Explanted Type Area Creel Cleaner Device Identifier Shelf Expiration Date Model / Serial / Lot Saline Breast Implant Explanted:Qty : 1 on 11/27/2020 at [facility] Breast Left: Breast [employer] / 0 / Salline Breast Implant Explanted:Qty : 1 on 11/27/2020 by Dada Eid MD at [facility] Breast Right: Breast [employer] / 0 / 0 Allergan [id number] Explanted:Qty : 1 on 12/21/2021 at [facility] Breast Left: Breast [employer] [id number] / / [id number] Procedures Procedure Name Priority Date/Time Associated Diagnosis Comments CT FOOT RIGHT W CONTRAST Schedule Routine, Read Routine (OP Routine) 11/16/2024 4:46 PM CDT Osteomyelitis of ankle or foot, right, acute (HCC) ERYTHROCYTE SEDIMENTATION RATE Routine 11/16/2024 10:52 AM CDT Osteomyelitis of ankle or foot, right, acute (HCC) COMPREHENSIVE METABOLIC PANEL Routine 11/16/2024 10:52 AM CDT Osteomyelitis of ankle or foot, right, acute (HCC) CBC WITH AUTO DIFFERENTIAL Routine 11/16/2024 10:52 AM CDT Osteomyelitis of ankle or foot, right, acute (HCC) EGFR Routine 10/22/2024 12:11 PM CDT DIFFERENTIAL AUTO Routine 10/22/2024 12: 11 PM CDT ERYTHROCYTE SEDIMENTATION RATE Routine 10/22/2024 12:11 PM CDT CBC WITH AUTO DIFFERENTIAL Routine 10/22/2024 12:11 PM CDT GLUCOSE, RANDOM (OUTREACH) Routine 10/22/2024 12:11 PM CDT COMPREHENSIVE METABOLIC PANEL WITHOUT GLUCOSE (OUTREACH) Routine 10/22/2024 12:11 PM CDT EGFR Routine 10/15/2024 3:30 PM CDT DIFFERENTIAL AUTO Routine 10/15/2024 3:3 0 PM CDT ERYTHROCYTE SEDIMENTATION RATE Routine 10/15/2024 3:30 PM CDT CBC WITH AUTO DIFFERENTIAL Routine 10/15/2024 3:30 PM CDT COMPREHENSIVE METABOLIC PANEL Routine 10/15/2024 3:30 PM CDT EGFR Routine 10/09/2024 11:30 AM MANAGER VISUAL DIFFERENTIAL AUTO Routine 10/09/2024 11: 30 AM MANAGER VISUAL ERYTHROCYTE SEDIMENTATION RATE Routine 10/09/2024 11:30 AM MANAGER VISUAL CBC WITH AUTO DIFFERENTIAL Routine 10/09/2024 11:30 AM MANAGER VISUAL COMPREHENSIVE METABOLIC PANEL Routine 10/09/2024 11:30 AM MANAGER VISUAL EGFR Routine 10/02/2024 12:22 PM MANAGER VISUAL DIFFERENTIAL AUTO Routine 10/02/2024 12: 22 PM MANAGER VISUAL ERYTHROCYTE SEDIMENTATION RATE Routine 10/02/2024 12:22 PM MANAGER VISUAL CBC WITH AUTO DIFFERENTIAL Routine 10/02/2024 12:22 PM MANAGER VISUAL COMPREHENSIVE METABOLIC PANEL Routine 10/02/2024 12:22 PM MANAGER VISUAL URINALYSIS, MICROSCOPIC ONLY STAT 09/28/2024 4:01 PM MANAGER VISUAL URINALYSIS AND REFLEX TO MICROSCOPIC AND CULTURE STAT 09/28/2024 4:01 PM MANAGER VISUAL MAGNESIUM STAT 09/28/2024 4:00 PM MANAGER VISUAL PHOSPHORUS STAT 09/28/2024 4:00 PM MANAGER VISUAL EGFR STAT 09/28/2024 4:00 PM MANAGER VISUAL DIFFERENTIAL AUTO STAT 09/28/2024 4:0 0 PM MANAGER VISUAL COMPREHENSIVE METABOLIC PANEL STAT 09/28/2024 4:00 PM MANAGER VISUAL CBC WITH AUTO DIFFERENTIAL STAT 09/28/2024 4:00 PM MANAGER VISUAL ECG 12-LEAD STAT 09/28/2024 3:47 PM MANAGER VISUAL EGFR Routine 09/25/2024 9:10 AM MANAGER VISUAL DIFFERENTIAL AUTO Routine 09/25/2024 9:1 0 AM MANAGER VISUAL ERYTHROCYTE SEDIMENTATION RATE Routine 09/25/2024 9:10 AM MANAGER VISUAL CBC WITH AUTO DIFFERENTIAL Routine 09/25/2024 9:10 AM MANAGER VISUAL GLUCOSE, RANDOM (OUTREACH) Routine 09/25/2024 9:10 AM MANAGER VISUAL COMPREHENSIVE METABOLIC PANEL WITHOUT GLUCOSE (OUTREACH) Routine 09/25/2024 9:10 AM MANAGER VISUAL EGFR Routine 09/18/2024 11:20 AM MANAGER VISUAL DIFFERENTIAL AUTO Routine 09/18/2024 11: 20 AM MANAGER VISUAL ERYTHROCYTE SEDIMENTATION RATE Routine 09/18/2024 11:20 AM MANAGER VISUAL CBC WITH AUTO DIFFERENTIAL Routine 09/18/2024 11:20 AM MANAGER VISUAL GLUCOSE, RANDOM (OUTREACH) Routine 09/18/2024 11:20 AM MANAGER VISUAL COMPREHENSIVE METABOLIC PANEL WITHOUT GLUCOSE (OUTREACH) Routine 09/18/2024 11:20 AM MANAGER VISUAL EGFR Routine 09/17/2024 3:49 AM MANAGER VISUAL HEMOGLOBIN AND HEMATOCRIT Routine 09/17/2024 3:49 AM MANAGER VISUAL BASIC METABOLIC PANEL Routine 09/17/2024 3:49 AM MANAGER VISUAL EGFR Routine 09/16/2024 3:14 AM MANAGER VISUAL HEMOGLOBIN AND HEMATOCRIT Routine 09/16/2024 3:14 AM MANAGER VISUAL BASIC METABOLIC PANEL Routine 09/16/2024 3:14 AM MANAGER VISUAL EGFR Routine 09/15/2024 7:54 AM MANAGER VISUAL HEMOGLOBIN AND HEMATOCRIT Routine 09/15/2024 7:54 AM MANAGER VISUAL BASIC METABOLIC PANEL Routine 09/15/2024 7:54 AM MANAGER VISUAL EGFR Routine 09/14/2024 5:19 AM MANAGER VISUAL DIFFERENTIAL AUTO Routine 09/14/2024 5:1 9 AM MANAGER VISUAL CBC WITH AUTO DIFFERENTIAL Routine 09/14/2024 5:19 AM MANAGER VISUAL BASIC METABOLIC PANEL Routine 09/14/2024 5:19 AM MANAGER VISUAL EGFR Routine 09/13/2024 5:14 AM MANAGER VISUAL DIFFERENTIAL AUTO Routine 09/13/2024 5:1 4 AM MANAGER VISUAL COMPREHENSIVE METABOLIC PANEL Routine 09/13/2024 5:14 AM MANAGER VISUAL CBC WITH AUTO DIFFERENTIAL Routine 09/13/2024 5:14 AM MANAGER VISUAL ERYTHROCYTE SEDIMENTATION RATE Routine 09/13/2024 5:14 AM MANAGER VISUAL VANCOMYCIN LEVEL TROUGH Timed 09/13/2024 5:14 AM MANAGER VISUAL HEMOGLOBIN A1C Routine 09/12/2024 6:17 AM MANAGER VISUAL EGFR Routine 09/12/2024 6:17 AM MANAGER VISUAL HEMOGLOBIN AND HEMATOCRIT Routine 09/12/2024 6:17 AM MANAGER VISUAL BASIC METABOLIC PANEL Routine 09/12/2024 6:17 AM MANAGER VISUAL POCT GLUCOSE DEVICE Routine 09/11/2024 8 :17 PM MANAGER VISUAL VANCOMYCIN LEVEL TROUGH Timed 09/11/2024 7:15 PM MANAGER VISUAL EGFR STAT 09/11/2024 6:42 PM MANAGER VISUAL DIFFERENTIAL AUTO STAT 09/11/2024 6:4 2 PM MANAGER VISUAL BASIC METABOLIC PANEL STAT 09/11/2024 6:42 PM MANAGER VISUAL CBC WITH AUTO DIFFERENTIAL STAT 09/11/2024 6:42 PM MANAGER VISUAL POCT GLUCOSE DEVICE Routine 09/11/2024 6 :04 PM MANAGER VISUAL FL FLUOROSCOPY < 1 HOUR IP Routine 09/11/2024 4:00 PM MANAGER VISUAL AEROBIC AND ANAEROBIC CULTURE AND GRAM STAIN Routine 09/11/2024 3:45 PM MANAGER VISUAL AEROBIC AND ANAEROBIC CULTURE AND GRAM STAIN Routine 09/11/2024 3:44 PM MANAGER VISUAL TISSUE AEROBIC AND ANAEROBIC CULTURE AND GRAM STAIN Routine 09/11/2024 3:39 PM MANAGER VISUAL INCISION AND DRAINAGE - ANKLE 09/11/2024 3:06 PM MANAGER VISUAL Osteomyelitis of right foot, unspecified type (HCC) Closed displaced fracture of fifth metatarsal bone of right foot, initial encounter Case Notes Right foot I&D w/ bone biopsy COLONOSCOPY 05/16/2024 10:08 AM CDT from Last 3 Months or Most Recently Relevant to Health Maintenance Results * CT Foot Right W Contrast (11/16/2024 4:46 PM CDT) Anatomical Region Laterality Modality Lower Extremities Right Computed Tomog jose 11/18/2024 1:56 AM CDT Narrative 11/18/2024 2:10 AM CDT EXAM DESCRIPTION: CT FOOT RIGHT W CONTRAST REASON FOR STUDY: osteomyelitis Osteomyelitis of ankle or foot, right, acute. Dx in Jun 2024. Pt states Sx hx to clean infection out of bone and partial bone removal TECHNIQUE: Multidetector CT scan of the right foot was performed after intravenous contrast. Coronal and sagittal images were reconstructed. Automated exposure control was used as a dose optimization technique for this examination. CONTRAST TYPE/DOSE: 100mL of IOVERSOL 350 MG IODINE/ML INTRAVENOUS SYRINGE injected via intravenous COMPARISON: Caries paresis is made to intraoperative fluoroscopy images of September 11, 2024, preoperative CT of the right foot of July 30, 2024 plain films of the right foot of June 18, 2024.. FINDINGS: BONES: The distal tibia and distal fibula are intact. There is a large caliber screw traversing the posterior facet of the subtalar joint with sequelae of bony fusion of the subtalar joint, unchanged from previous. The talus and calcaneus are intact. The navicular, cuboid and cuneiforms appear intact. There is a medial plate and multiple screws fixating the 1st Lisfranc joint and extending into the middle and lateral cuneiforms. There is mature bony fusion of the 1st Lisfranc joint. There is degenerative change seen of the 2nd through 5th Lisfranc joints. There is marginal erosive change seen of the 5th metatarsal head in the adjacent base of the proximal phalanx of the little toe, not significantly changed as compared to previous study. There is joint space narrowing with sclerosis and small marginal osteophytes seen of the metatarsal-phalangeal joint of the great toe. The remaining metatarsal-phalangeal joints appear well preserved. Remaining phalanges appear intact. SOFT TISSUES: There is confluent soft tissue density surrounding the metatarsal-phalangeal joint of the little toe, not significantly changed as compared to previous study. There is circumferential confluent edema seen about the lower leg and ankle with scattered calcifications in the subcutaneous tissues, not significantly changed from previous.. OTHER: No other finding. IMPRESSION: Marginal erosive change of the 5th metatarsal head and adjacent base of the proximal phalanx of the little toe with surrounding confluent soft tissue density, not significantly changed as compared to previous study. This may represent continued infection or postoperative change. Osteomyelitis cannot be excluded by CT. Consider follow-up MRI of the forefoot without and with contrast for further evaluation. Instrumented arthrodesis of the subtalar joint and 1st Lisfranc joint with mature bony fusion. Degenerative change of the metatarsal-phalangeal joint of the great toe. Nonspecific circumferential confluent edema about the lower leg and ankle, not significantly changed from previous study. THIS IS AN ELECTRONICALLY VERIFIED FINAL REPORT 11/18/2024 2:10 AM - Electronically signed by Carmen Escobedo M.D. SN: Report ID: [id number] Reading Location: [id number] Procedure Note Carmen Escobedo MD - 11/18/2024 EXAM DESCRIPTION: CT FOOT RIGHT W CONTRAST REASON FOR STUDY: osteomyelitis Osteomyelitis of ankle or foot, right, acute. Dx in Jun 2024. Pt statesSx hx to clean infection out of bone and partial bone removal TECHNIQUE: Multidetector CT scan of the right foot was performed after intravenous contrast. Coronal and sagittal images were reconstructed. Automated exposure control was used as a dose optimization technique forthis examination. CONTRAST TYPE/DOSE: 100mL of IOVERSOL 350 MG IODINE/ML INTRAVENOUSSYRINGE injected via intravenous COMPARISON: Caries paresis is made to intraoperative fluoroscopy images of September 11, 2024, preoperative CT of the right foot of July 30lain films of the right foot of June 18, 2024.. FINDINGS: BONES: The distal tibia and distal fibula are intact. Thereis a large caliber screw traversing the posterior facet of the subtalar jointwith sequelae of bony fusion of the subtalar joint, unchanged from previous.The talus and calcaneus are intact. The navicular, cuboid and cuneiformsappear intact. There is a medial plate and multiple screws fixating the 1stLisfranc joint and extending into the middle and lateral cuneiforms. There ismature bony fusion of the 1st Lisfranc joint. There is degenerative change seenof the 2nd through 5th Lisfranc joints. There is marginal erosive changeseen of the 5th metatarsal head in the adjacent base of the proximal phalanx ofthe little toe, not significantly changed as compared to previous study.There is joint space narrowing with sclerosis and small marginal osteophytes seenof the metatarsal-phalangeal joint of the great toe. The remaining metatarsal-phalangeal joints appear well preserved. Remaining phalanges appear intact. SOFT TISSUES: There is confluent soft tissue density surrounding the metatarsal-phalangeal joint of the little toe, not significantly changedas compared to previous study. There is circumferential confluent edema seen about the lower leg and ankle with scattered calcifications in the subcutaneous tissues, not significantly changed from previous.. OTHER: No other finding. IMPRESSION: Marginal erosive change of the 5th metatarsal head and adjacent base ofthe proximal phalanx of the little toe with surrounding confluent soft tissue density, not significantly changed as compared to previous study. Thismay represent continued infection or postoperative change. Osteomyelitiscannot be excluded by CT. Consider follow-up MRI of the forefoot without andwith contrast for further evaluation. Instrumented arthrodesis of the subtalar joint and 1st Lisfranc jointwith mature bony fusion. Degenerative change of the metatarsal-phalangeal joint of the greattoe. Nonspecific circumferential confluent edema about the lower leg andankle, not significantly changed from previous study. THIS IS AN ELECTRONICALLY VERIFIED FINAL REPORT 11/18/2024 2:10 AM - Electronically signed by Carmen Escobedo M.D. SN: SN Report ID: [id number] Reading Location: [place] [address] us Miki Rodriguez MD [facility] CT PROCEDURES Final Resu lt * (ABNORMAL) CBC with auto differential (11/16/2024 10:52 AM CDT) WBC 7.8 3.8 - 10.8 Thousand/u L [facility] RBC, POC 4.44 3.80 - 5.10 Million/uL [facility] Hgb 13.4 11.7 - 15.5 g/dL [facility] Hct 41.5 35.0 - 45.0 % [facility] MCV 93.5 80.0 - 100.0 fL [facility] MCH 30.2 27.0 - 33.0 pg [facility] MCHC 32.3 32.0 - 36.0 g/dL [facility] Comment: For adults, a slight decrease in the calculated MCHC value (in the range of 30 to 32 g/dL) is most likely not clinically significant; however, it should be interpreted with caution in correlation with other red cell parameters and the patient's clinical condition. Rdw 13.2 11.0 - 15.0 % [facility] Platelets 157 140 - 400 Thousand/u L [facility] MPV 12.9(H) 7.5 - 12.5 fL [facility] Neutrophils, abs 5,140 1,500 - 7,800 cells/uL [facility] Lymphocytes, abs 1,529 850 - 3,900 cells/uL [facility] Monocyte abs 827 200 - 950 cells/uL [facility] Eosinophils, abs 242 15 - 500 cells/uL [facility] Basophils, abs 62 0 - 200 cells/uL [facility] Neutrophils 65.9 % [facility] Lymphocyte pct 19.6 % [facility] Monocytes 10.6 % [facility] Eosinophils 3.1 % [facility] Basophils 0.8 % [facility] Blood 11/16/2024 10:5 2 AM CDT 11/16/2024 10:52 AM CDT Narrative [facility] - 11/16/2024 7:48 PM CDT FASTING:NO FASTING: NO us Miki Rodriguez MD LAB BLOOD ORDERABLES Final R esult [facility] [address] [place] [address] * Erythrocyte sedimentation rate (11/16/2024 10:52 AM CDT) Erythrocyte sedimentation rate 29 < OR = 30 mm/h [facility] Blood 11/16/2024 10:5 2 AM CDT 11/16/2024 10:52 AM CDT Narrative [facility] - 11/16/2024 7:48 PM CDT FASTING:NO FASTING: NO us Miki Rodriguez MD LAB BLOOD ORDERABLES Final R esult [facility] [id number] [place] [address] * Comprehensive metabolic panel (11/16/2024 10:52 AM CDT) [facility] Glucose 95 65 - 139 mg/dL Najma AguilarKinex PharmaceuticalsBandar Bashir Comment: Non-fasting reference interval BUN 19 7 - 25 mg/dL Najma AguilarKinex PharmaceuticalsBandar Bashir Creatinine 0.82 0.60 - 1.00 mg/dL Najma StudiekringBandar Bashir eGFR 75 > OR = 60 mL/min/1.7 3m2 Najma AguilarKinex PharmaceuticalsBandar Bashir BUN/creat ratio SEE NOTE: 6 - 22 (calc) Najma Amartus[facility]ir Comment: Not Reported: BUN and Creatinine are within reference range. Sodium 138 135 - 146 mmol/L Najma AguilarKinex PharmaceuticalsBandar Bashir Potassium, pl 4.2 3.5 - 5.3 mmol/L [facility] Chloride 100 98 - 110 mmol/L Najma Amartus-Bandar [facility]ir CO2 32 20 - 32 mmol/L Naj[facility] Aguilar-Bandar Bashir Calcium 9.3 8.6 - 10.4 mg/dL Naj[facility]ilar-[facility]ar Bashir Protein, sr 6.8 6.1 - 8.1 g/dL Naj[facility]-Band[facility] Bashir Albumin 4.1 3.6 - 5.1 g/dL Najma Amartus-Bandar Bashir GLOBULIN 2.7 1.9 - 3.7 g/dL (calc) Najma Amartus-Bandar Bashir Alb/glob ratio 1.5 1.0 - 2.5 (calc) Najma Amartus-[facility] Bilirubin, total 0.4 0.2 - 1.2 mg/dL Najma Amartus-Band[facility] Alk phos 74 37 - 153 U/L Najma Amartus-Bandar [facility] AST 16 10 - 35 U/L Najma StudiekringBandar Bashir ALT (SGPT) 20 6 - 29 U/L [employer] Bashir Blood 11/16/2024 10:5 2 AM CDT 11/16/2024 10:52 AM CDT Narrative [facility] - 11/16/2024 7:48 PM CDT FASTING:NO FASTING: NO Miki Rodriguez MD LAB BLOOD ORDERABLES Final R esult Performing Organization Address City/[facility]/ZIP Co de Phone Number [facility] [address] [place] [address] * Glucose, random (Outreach) (10/22/2024 12:11 PM CDT) Glucose 98 70 - 199 mg/dL Comment: Interpretive Data Fasting glucose >/= 126 mg/dl is diagnostic for diabetes. Fasting is defined as no caloric intake for at least 8 hours. Fasting glucose between 100 mg/dl to 125 mg/dl is diagnostic of prediabetes. In a patient with classic symptoms of hyperglycemia or hyperglycemic crisis, a random glucose >/= 200 mg/dl is diagnostic for diabetes. In the absence of unequivocal hyperglycemia, results should be confirmed by repeat testing. The classification and Diagnosis of Diabetes Diabetes Care 2021; 46: S19-S40. Current interpretive data was last revised 2022. Blood 10/22/2024 12:1 1 PM CDT 10/22/2024 4:40 PM CDT Miki Rodriguez MD LAB BLOOD ORDERABLES Final R esult Performing Organization Address City/[facility] Co de Phone Number KEN [facility] Department [place] [address] * eGFR (10/22/2024 12:11 PM CDT) eGFR 70 >=60 mL/min/1. 73 m2 Comment: Interpretive Data Reference Interval Normal >/= 90 mL/min/1.73m2 Mildly decreased* 60 - 89 mL/min/1.73m2 Mildly to moderately decreased 45 - 59 mL/min/1.73m2 Moderately to severely decreased 30 - 44 mL/min/1.73m2 Severely decreased 15 - 29 mL/min/1.73m2 Kidney Failure < 15 mL/min/1.73m2 *Relative to young adult level Estimated glomerular filtration rate is determined by the 2020 CKD-EPI equation recommended by the National Kidney Foundation (A Unifying Approach to GFR Estimation: Recommendations of the NKF-ASK Task Force on Reassessing the Inclusion of Race in Diagnosing Kidney Disease, JASN 202). The CKD-EPI equation should not be used for patients with unstable renal function and has not been validated in children and those over 70. Current interpretive data was last reviewed 2021. Blood 10/22/2024 12:1 1 PM CDT 10/22/2024 5:04 PM CDT us Miki Rodriguez MD LAB BLOOD ORDERABLES Final R esult [facility] Department [place] [address] * Differential, auto (10/22/2024 12:11 PM CDT) Neutrophil abs 5.3 1.5 - 6.5 K/cumm Imm gran abs 0.0 0.0 - 0.1 K/cumm [facility] Lymphocyte abs 1.0 0.8 - 3.3 K/cumm [facility] Monocyte abs 0.6 0.2 - 0.8 K/cumm [facility] Eosinophil abs 0.2 0.0 - 0.5 K/cumm [facility] Basophil abs 0.1 0.0 - 0.1 K/cumm [facility] Neutrophil pct 74.8 % [facility] Comment: Interpretive Data Percent cell count reference ranges are not reported, since discordance with absolute values may lead to misinterpretation of CBC data. Current Interpretive Data was last revised on 2017. Imm gran pct 0.4 % [facility] Comment: Interpretive Data Percent cell count reference ranges are not reported, since discordance with absolute values may lead to misinterpretation of CBC data. Current Interpretive Data was last revised on 2017. Lymphocyte pct 13.4 % [facility] Comment: Interpretive Data Percent cell count reference ranges are not reported, since discordance with absolute values may lead to misinterpretation of CBC data. Current Interpretive Data was last revised on 2017. Monocyte pct 8.1 % [facility] Comment: Interpretive Data Percent cell count reference ranges are not reported, since discordance with absolute values may lead to misinterpretation of CBC data. Current Interpretive Data was last revised on 2017. Eosinophil pct 2.5 % [facility] Comment: Interpretive Data Percent cell count reference ranges are not reported, since discordance with absolute values may lead to misinterpretation of CBC data. Current Interpretive Data was last revised on 2017. Basophil pct 0.8 % [facility] Comment: Interpretive Data Percent cell count reference ranges are not reported, since discordance with absolute values may lead to misinterpretation of CBC data. Current Interpretive Data was last revised on 2017. Blood 10/22/2024 12:1 1 PM CDT 10/22/2024 4:40 PM CDT us Miki Rodriguez MD LAB BLOOD ORDERABLES Final R esult [facility] Department [place] [address] * Comprehensive metabolic panel, without glucose (Outreach) (10/22/2024 12:11 PM CDT) Sodium 143 135 - 145 mmol/L Potassium, pl 4.6 3.3 - 4.9 mmol/L [facility] Chloride 102 97 - 110 mmol/L [facility] CO2 29 22 - 32 mmol/L [facility] Anion gap 12 2 - 15 mmol/L [facility] BUN 22 6 - 25 mg/dL [facility] Creatinine 0.87 0.60 - 1.10 mg/dL [facility] Calcium 9.4 8.5 - 10.3 mg/dL [facility] Protein, pl 7.2 6.5 - 8.5 g/dL [facility] Albumin 4.0 3.5 - 5.0 g/dL [facility] Bilirubin, total 0.4 0.1 - 1.2 mg/dL [facility] Alk phos 82 40 - 130 Units/L [facility] AST 25 10 - 45 Units/L [facility] ALT 20 7 - 45 Units/L [facility] [facility] Blood 10/22/2024 12:1 1 PM CDT 10/22/2024 4:40 PM CDT Miki Rodriguez MD LAB BLOOD ORDERABLES Final R esult Performing Organization Address City/[facility]/ZIP Co de Phone Number [facility] Department [place] [address] * (ABNORMAL) CBC with auto differential (10/22/2024 12:11 PM CDT) Pathologist [facility] WBC 7.1 3.8 - 9.9 K/cumm Hgb 13.2 11.9 - 15.5 g/dL [facility] Hct 41.1 35.6 - 45.5 % [facility] Plt 118(L) 150 - 400 K/cumm [facility] MPV 14.0(H) 9.1 - 12.3 fL [facility] RBC 4.49 3.90 - 5.20 M/cumm [facility] MCV 91.5 81.3 - 96.4 fL [facility] MCH 29.4 27.1 - 33.3 pg [facility] MCHC 32.1(L) 32.3 - 35.7 g/dL [facility] RDW CV 14.5 11.1 - 14.9 % [facility] RDW SD 48.5(H) 35.7 - 48.1 fL [facility] NRBC abs 0.00 0.00 - 0.01 K/cumm [facility] Blood 10/22/2024 12:1 1 PM CDT 10/22/2024 4:40 PM CDT Miki Rodriguez MD LAB BLOOD ORDERABLES Edited Result - Final [facility] Department [place] [address] * Erythrocyte sedimentation rate (10/22/2024 12:11 PM CDT) Erythrocyte sedimentation rate 21 1 - 30 mm/hr Blood 10/22/2024 12:1 1 PM CDT 10/22/2024 4:40 PM CDT Miki Rodriguez MD LAB BLOOD ORDERABLES Final R esult Performing Organization Address City/[facility] Co de Phone Number KEN [facility] [place] [address] * eGFR (10/15/2024 3:30 PM CDT) eGFR 76 >=60 mL/min/1. 73 m2 Comment: Interpretive Data Reference Interval Normal >/= 90 mL/min/1.73m2 Mildly decreased* 60 - 89 mL/min/1.73m2 Mildly to moderately decreased 45 - 59 mL/min/1.73m2 Moderately to severely decreased 30 - 44 mL/min/1.73m2 Severely decreased 15 - 29 mL/min/1.73m2 Kidney Failure < 15 mL/min/1.73m2 *Relative to young adult level Estimated glomerular filtration rate is determined by the 2020 CKD-EPI equation recommended by the National Kidney Foundation (A Unifying Approach to GFR Estimation: Recommendations of the NKF-ASK Task Force on Reassessing the Inclusion of Race in Diagnosing Kidney Disease, JASN 2020). The CKD-EPI equation should not be used for patients with unstable renal function and has not been validated in children and those over 70. Current interpretive data was last reviewed 2021. Blood 10/15/2024 3:30 PM CDT 10/15/2024 6:26 PM CDT us Miki Rodriguez MD LAB BLOOD ORDERABLES Final R esult Performing Organization Address City/[facility]/ZIP Co de Phone Number [facility] [place] [address] * Differential, auto (10/15/2024 3:30 PM CDT) Neutrophil abs 5.2 1.5 - 6.5 K/cumm Imm gran abs 0.1 0.0 - 0.1 K/cumm [facility] Lymphocyte abs 1.1 0.8 - 3.3 K/cumm [facility] Monocyte abs 0.6 0.2 - 0.8 K/cumm [facility] Eosinophil abs 0.2 0.0 - 0.5 K/cumm [facility] Basophil abs 0.1 0.0 - 0.1 K/cumm [facility] Neutrophil pct 71.9 % [facility] Comment: Interpretive Data Percent cell count reference ranges are not reported, since discordance with absolute values may lead to misinterpretation of CBC data. Current Interpretive Data was last revised on 2017. Imm gran pct 0.7 % [facility] Comment: Interpretive Data Percent cell count reference ranges are not reported, since discordance with absolute values may lead to misinterpretation of CBC data. Current Interpretive Data was last revised on 2017. Lymphocyte pct 15.5 % [facility] Comment: Interpretive Data Percent cell count reference ranges are not reported, since discordance with absolute values may lead to misinterpretation of CBC data. Current Interpretive Data was last revised on 2017. Monocyte pct 8.4 % [facility] Comment: Interpretive Data Percent cell count reference ranges are not reported, since discordance with absolute values may lead to misinterpretation of CBC data. Current Interpretive Data was last revised on 2017. Eosinophil pct 2.4 % [facility] Comment: Interpretive Data Percent cell count reference ranges are not reported, since discordance with absolute values may lead to misinterpretation of CBC data. Current Interpretive Data was last revised on 2017. Basophil pct 1.1 % [facility] Comment: Interpretive Data Percent cell count reference ranges are not reported, since discordance with absolute values may lead to misinterpretation of CBC data. Current Interpretive Data was last revised on 2017. Blood 10/15/2024 3:30 PM CDT 10/15/2024 5:50 PM CDT Miki Rodriguez MD LAB BLOOD ORDERABLES Final R esult Performing Organization Address [facility] Co de Phone Number [facility] [place] [address] * (ABNORMAL) CBC with auto differential (10/15/2024 3:30 PM CDT) WBC 7.2 3.8 - 9.9 K/cumm Hgb 12.9 11.9 - 15.5 g/dL [facility] Hct 40.3 35.6 - 45.5 % [facility] Plt 139(L) 150 - 400 K/cumm [facility] MPV 13.3(H) 9.1 - 12.3 fL [facility] RBC 4.35 3.90 - 5.20 M/cumm [facility] MCV 92.6 81.3 - 96.4 fL [facility] MCH 29.7 27.1 - 33.3 pg [facility] MCHC 32.0(L) 32.3 - 35.7 g/dL [facility] RDW CV 14.5 11.1 - 14.9 % [facility] RDW SD 48.7(H) 35.7 - 48.1 fL [facility] NRBC abs 0.00 0.00 - 0.01 K/cumm [facility] Blood 10/15/2024 3:30 PM CDT 10/15/2024 5:50 PM CDT Miki Rodriguez MD LAB BLOOD ORDERABLES Final R esult [facility] [place] [address] * Erythrocyte sedimentation rate (10/15/2024 3:30 PM CDT) Erythrocyte sedimentation rate 24 1 - 30 mm/hr Blood 10/15/2024 3:30 PM CDT 10/15/2024 5:50 PM CDT us Miki Rodriguez MD LAB BLOOD ORDERABLES Final R esult [facility] Department [place] [address] * Comprehensive metabolic panel (10/15/2024 3:30 PM CDT) Sodium 143 135 - 145 mmol/L Potassium, pl 3.9 3.3 - 4.9 mmol/L [facility] Chloride 102 97 - 110 mmol/L [facility] CO2 30 22 - 32 mmol/L [facility] Anion gap 11 2 - 15 mmol/L [facility] BUN 18 6 - 25 mg/dL [facility] Creatinine 0.81 0.60 - 1.10 mg/dL [facility] Glucose 124 70 - 199 mg/dL [facility] Comment: Interpretive Data Fasting glucose >/= 126 mg/dl is diagnostic for diabetes. Fasting is defined as no caloric intake for at least 8 hours. Fasting glucose between 100 mg/dl to 125 mg/dl is diagnostic of prediabetes. In a patient with classic symptoms of hyperglycemia or hyperglycemic crisis, a random glucose >/= 200 mg/dl is diagnostic for diabetes. In the absence of unequivocal hyperglycemia, results should be confirmed by repeat testing. The classification and Diagnosis of Diabetes Diabetes Care 202; 46: S19-S40. Current interpretive data was last revised 2022. Calcium 9.2 8.5 - 10.3 mg/dL [facility] Bilirubin, total 0.2 0.1 - 1.2 mg/dL [facility] Protein, pl 7.2 6.5 - 8.5 g/dL [facility] Albumin 3.7 3.5 - 5.0 g/dL [facility] Alk phos 75 40 - 130 Units/L [facility] ALT 18 7 - 45 Units/L [facility] AST 18 10 - 45 Units/L [facility] Blood 10/15/2024 3:30 PM CDT 10/15/2024 5:49 PM CDT Miki Rodriguez MD LAB BLOOD ORDERABLES Final R esult Performing Organization Address City/[facility] Co de Phone Number [facility] Department [place] [address] * eGFR (10/09/2024 11:30 AM MANAGER VISUAL) eGFR 81 >=60 mL/min/1. 73 m2 Comment: Interpretive Data Reference Interval Normal >/= 90 mL/min/1.73m2 Mildly decreased* 60 - 89 mL/min/1.73m2 Mildly to moderately decreased 45 - 59 mL/min/1.73m2 Moderately to severely decreased 30 - 44 mL/min/1.73m2 Severely decreased 15 - 29 mL/min/1.73m2 Kidney Failure < 15 mL/min/1.73m2 *Relative to young adult level Estimated glomerular filtration rate is determined by the 2020 CKD-EPI equation recommended by the National Kidney Foundation (A Unifying Approach to GFR Estimation: Recommendations of the NKF-ASK Task Force on Reassessing the Inclusion of Race in Diagnosing Kidney Disease, JASN 2020). The CKD-EPI equation should not be used for patients with unstable renal function and has not been validated in children and those over 70. Current interpretive data was last reviewed 2021. Blood 10/09/2024 11:3 0 AM MANAGER VISUAL 10/09/2024 4:41 PM MANAGER VISUAL Miki Rodriguez MD LAB BLOOD ORDERABLES Final R esult Performing Organization Address City/[facility] Co de Phone Number KEN WONG [facility] Department [place] [address] * (ABNORMAL) Differential, auto (10/09/2024 11:30 AM MANAGER VISUAL) Neutrophil abs 6.8(H) 1.5 - 6.5 K/cumm Imm gran abs 0.1 0.0 - 0.1 K/cumm [facility] Lymphocyte abs 1.1 0.8 - 3.3 K/cumm [facility] Monocyte abs 0.8 0.2 - 0.8 K/cumm [facility] Eosinophil abs 0.2 0.0 - 0.5 K/cumm [facility] Basophil abs 0.1 0.0 - 0.1 K/cumm [facility] Neutrophil pct 76.3 % [facility] Comment: Interpretive Data Percent cell count reference ranges are not reported, since discordance with absolute values may lead to misinterpretation of CBC data. Current Interpretive Data was last revised on 2017. Imm gran pct 0.8 % [facility] Comment: Interpretive Data Percent cell count reference ranges are not reported, since discordance with absolute values may lead to misinterpretation of CBC data. Current Interpretive Data was last revised on 2017. Lymphocyte pct 11.9 % [facility] Comment: Interpretive Data Percent cell count reference ranges are not reported, since discordance with absolute values may lead to misinterpretation of CBC data. Current Interpretive Data was last revised on 2017. Monocyte pct 8.5 % [facility] Comment: Interpretive Data Percent cell count reference ranges are not reported, since discordance with absolute values may lead to misinterpretation of CBC data. Current Interpretive Data was last revised on 2017. Eosinophil pct 1.7 % [facility] Comment: Interpretive Data Percent cell count reference ranges are not reported, since discordance with absolute values may lead to misinterpretation of CBC data. Current Interpretive Data was last revised on 2017. Basophil pct 0.8 % [facility] Comment: Interpretive Data Percent cell count reference ranges are not reported, since discordance with absolute values may lead to misinterpretation of CBC data. Current Interpretive Data was last revised on 2017. Blood 10/09/2024 11:3 0 AM MANAGER VISUAL 10/09/2024 4:29 PM MANAGER VISUAL us Miki Rodriguez MD LAB BLOOD ORDERABLES Final R esult KEN ROSA [facility] Department [place] [address] * (ABNORMAL) CBC with auto differential (10/09/2024 11:30 AM MANAGER VISUAL) WBC 9.0 3.8 - 9.9 K/cumm Hgb 13.4 11.9 - 15.5 g/dL [facility] Hct 41.3 35.6 - 45.5 % [facility] Plt 128(L) 150 - 400 K/cumm [facility] MPV 13.8(H) 9.1 - 12.3 fL [facility] RBC 4.56 3.90 - 5.20 M/cumm [facility] MCV 90.6 81.3 - 96.4 fL [facility] MCH 29.4 27.1 - 33.3 pg [facility] MCHC 32.4 32.3 - 35.7 g/dL [facility] RDW CV 14.6 11.1 - 14.9 % [facility] RDW SD 48.6(H) 35.7 - 48.1 fL [facility] NRBC abs 0.00 0.00 - 0.01 K/cumm [facility] Blood 10/09/2024 11:3 0 AM MANAGER VISUAL 10/09/2024 4:29 PM MANAGER VISUAL Miki Rodriguez MD LAB BLOOD ORDERABLES Final R esult Performing Organization Address City/[facility] Co de Phone Number [facility] [place] [address] * Erythrocyte sedimentation rate (10/09/2024 11:30 AM MANAGER VISUAL) [facility] Erythrocyte sedimentation rate 22 1 - 30 mm/hr Blood 10/09/2024 11:3 0 AM MANAGER VISUAL 10/09/2024 4:29 PM MANAGER VISUAL Miki Rodriguez MD LAB BLOOD ORDERABLES Final R esult [facility] [place] [address] * Comprehensive metabolic panel (10/09/2024 11:30 AM MANAGER VISUAL) Sodium 142 135 - 145 mmol/L Potassium, pl 4.4 3.3 - 4.9 mmol/L [facility] Chloride 102 97 - 110 mmol/L [facility] CO2 28 22 - 32 mmol/L [facility] Anion gap 12 2 - 15 mmol/L [facility] BUN 21 6 - 25 mg/dL [facility] Creatinine 0.77 0.60 - 1.10 mg/dL [facility] Glucose 85 70 - 199 mg/dL [facility] Comment: Interpretive Data Fasting glucose >/= 126 mg/dl is diagnostic for diabetes. Fasting is defined as no caloric intake for at least 8 hours. Fasting glucose between 100 mg/dl to 125 mg/dl is diagnostic of prediabetes. In a patient with classic symptoms of hyperglycemia or hyperglycemic crisis, a random glucose >/= 200 mg/dl is diagnostic for diabetes. In the absence of unequivocal hyperglycemia, results should be confirmed by repeat testing. The classification and Diagnosis of Diabetes Diabetes Care 2021; 46: S19-S40. Current interpretive data was last revised 2022. Calcium 9.4 8.5 - 10.3 mg/dL [facility] Bilirubin, total 0.3 0.1 - 1.2 mg/dL [facility] Protein, pl 7.2 6.5 - 8.5 g/dL [facility] Albumin 3.7 3.5 - 5.0 g/dL [facility] Alk phos 70 40 - 130 Units/L [facility] ALT 20 7 - 45 Units/L [facility] AST 25 10 - 45 Units/L [facility] Blood 10/09/2024 11:3 0 AM MANAGER VISUAL 10/09/2024 4:29 PM MANAGER VISUAL us Miki Rodriguez MD LAB BLOOD ORDERABLES Final R esult [facility] Department [place] [address] * eGFR (10/02/2024 12:22 PM MANAGER VISUAL) [facility] Signature eGFR 77 >=60 mL/min/1. 73 m2 Comment: Interpretive Data Reference Interval Normal >/= 90 mL/min/1.73m2 Mildly decreased* 60 - 89 mL/min/1.73m2 Mildly to moderately decreased 45 - 59 mL/min/1.73m2 Moderately to severely decreased 30 - 44 mL/min/1.73m2 Severely decreased 15 - 29 mL/min/1.73m2 Kidney Failure < 15 mL/min/1.73m2 *Relative to young adult level Estimated glomerular filtration rate is determined by the 2020 CKD-EPI equation recommended by the National Kidney Foundation (A Unifying Approach to GFR Estimation: Recommendations of the NKF-ASK Task Force on Reassessing the Inclusion of Race in Diagnosing Kidney Disease, JASN 2020). The CKD-EPI equation should not be used for patients with unstable renal function and has not been validated in children and those over 70. Current interpretive data was last reviewed 2021. Blood 10/02/2024 12:2 2 PM MANAGER VISUAL 10/02/2024 3:47 PM MANAGER VISUAL us Miki Rodriguez MD LAB BLOOD ORDERABLES Final R esult [facility] Department [place] [address] * Differential, auto (10/02/2024 12:22 PM MANAGER VISUAL) Pathologist [facility] Neutrophil abs 5.4 1.5 - 6.5 K/cumm Imm gran abs 0.1 0.0 - 0.1 K/cumm [facility] Lymphocyte abs 1.2 0.8 - 3.3 K/cumm [facility] Monocyte abs 0.6 0.2 - 0.8 K/cumm [facility] Eosinophil abs 0.2 0.0 - 0.5 K/cumm [facility] Basophil abs 0.1 0.0 - 0.1 K/cumm [facility] Neutrophil pct 71.9 % [facility] Comment: Interpretive Data Percent cell count reference ranges are not reported, since discordance with absolute values may lead to misinterpretation of CBC data. Current Interpretive Data was last revised on 2017. Imm gran pct 0.9 % [facility] Comment: Interpretive Data Percent cell count reference ranges are not reported, since discordance with absolute values may lead to misinterpretation of CBC data. Current Interpretive Data was last revised on 2017. Lymphocyte pct 15.7 % [facility] Comment: Interpretive Data Percent cell count reference ranges are not reported, since discordance with absolute values may lead to misinterpretation of CBC data. Current Interpretive Data was last revised on 2017. Monocyte pct 8.1 % [facility] Comment: Interpretive Data Percent cell count reference ranges are not reported, since discordance with absolute values may lead to misinterpretation of CBC data. Current Interpretive Data was last revised on 2017. Eosinophil pct 2.3 % [facility] Comment: Interpretive Data Percent cell count reference ranges are not reported, since discordance with absolute values may lead to misinterpretation of CBC data. Current Interpretive Data was last revised on 2017. Basophil pct 1.1 % [facility] Comment: Interpretive Data Percent cell count reference ranges are not reported, since discordance with absolute values may lead to misinterpretation of CBC data. Current Interpretive Data was last revised on 2017. Blood 10/02/2024 12:2 2 PM MANAGER VISUAL 10/02/2024 3:32 PM MANAGER VISUAL us Miki Rodriguez MD LAB BLOOD ORDERABLES Final R esult [facility] Department [place] [address] * (ABNORMAL) CBC with auto differential (10/02/2024 12:22 PM MANAGER VISUAL) WBC 7.4 3.8 - 9.9 K/cumm Hgb 13.3 11.9 - 15.5 g/dL [facility] Hct 42.4 35.6 - 45.5 % [facility] Plt 136(L) 150 - 400 K/cumm [facility] MPV 13.8(H) 9.1 - 12.3 fL [facility] RBC 4.62 3.90 - 5.20 M/cumm [facility] MCV 91.8 81.3 - 96.4 fL [facility] MCH 28.8 27.1 - 33.3 pg [facility] MCHC 31.4(L) 32.3 - 35.7 g/dL [facility] RDW CV 14.8 11.1 - 14.9 % [facility] RDW SD 49.8(H) 35.7 - 48.1 fL [facility] NRBC abs 0.00 0.00 - 0.01 K/cumm [facility] Blood 10/02/2024 12:2 2 PM MANAGER VISUAL 10/02/2024 3:32 PM MANAGER VISUAL Miki Rodriguez MD LAB BLOOD ORDERABLES Edited Result - Final Performing Organization Address City/[facility]/ZIP Co de Phone Number [facility] [place] [address] * Erythrocyte sedimentation rate (10/02/2024 12:22 PM MANAGER VISUAL) [facility] Erythrocyte sedimentation rate 19 1 - 30 mm/hr Blood 10/02/2024 12:2 2 PM MANAGER VISUAL 10/02/2024 3:32 PM MANAGER VISUAL Miki Rodriguez MD LAB BLOOD ORDERABLES Final R esult Performing Organization Address City/[facility]/ZIP Co de Phone Number [facility] [place] [address] * Comprehensive metabolic panel (10/02/2024 12:22 PM MANAGER VISUAL) [facility] Sodium 143 135 - 145 mmol/L Potassium, pl 4.2 3.3 - 4.9 mmol/L [facility] Chloride 103 97 - 110 mmol/L [facility] CO2 30 22 - 32 mmol/L [facility] Anion gap 10 2 - 15 mmol/L [facility] BUN 24 6 - 25 mg/dL [facility] Creatinine 0.81 0.60 - 1.10 mg/dL [facility] Glucose 153 70 - 199 mg/dL [facility] Comment: Interpretive Data Fasting glucose >/= 126 mg/dl is diagnostic for diabetes. Fasting is defined as no caloric intake for at least 8 hours. Fasting glucose between 100 mg/dl to 125 mg/dl is diagnostic of prediabetes. In a patient with classic symptoms of hyperglycemia or hyperglycemic crisis, a random glucose >/= 200 mg/dl is diagnostic for diabetes. In the absence of unequivocal hyperglycemia, results should be confirmed by repeat testing. The classification and Diagnosis of Diabetes Diabetes Care 2021; 46: S19-S40. Current interpretive data was last revised 2022. Calcium 9.2 8.5 - 10.3 mg/dL [facility] Bilirubin, total <0.2 0.1 - 1.2 mg/dL [facility] Protein, pl 6.9 6.5 - 8.5 g/dL [facility] Albumin 3.7 3.5 - 5.0 g/dL [facility] Alk phos 67 40 - 130 Units/L [facility] ALT 19 7 - 45 Units/L [facility] AST 20 10 - 45 Units/L [facility] Blood 10/02/2024 12:2 2 PM MANAGER VISUAL 10/02/2024 3:32 PM MANAGER VISUAL us Miki Rodriguez MD LAB BLOOD ORDERABLES Final R esult [facility] Department [place] [address] * (ABNORMAL) Urinalysis reflex to microscopic and culture Urine (09/28/2024 4:01 PM MANAGER VISUAL) Color, ur Yellow Yellow Clarity, ur Clear Clear [facility] Specific gravity, ur 1.032(H) 1.003 - 1.030 [facility] pH, urine 6.0 [facility] Comment: Interpretive Data U rine pH is affected by diet, medications, systemic acid-base disturbances, and renal tubular function. pH may affect urinary stone formation. For example, urine pH below 6.0 may help reduce the tendency for calcium phosphate stones and pH greater than 6.0 may reduce the tendency for uric acid stone formation. Source: [facility] Current Interpretive Data was last revised on 2017 Protein, ur ql Negative Negative [facility] Glucose, ur ql Negative Negative [facility] Ketones, ur Trace Negative [facility] Bilirubin, ur Negative Negative [facility] Blood, ur Negative Negative [facility] Urobilinogen, ur <2.0 <2.0 mg/dL [facility] Nitrite, ur Negative Negative [facility] Leukocyte esterase, ur 2+(A) Negative [facility] UA reflex comment Reflex to microscopic UA will be performed. [facility] Urine 09/28/2024 4:01 PM MANAGER VISUAL 09/28/2024 4:04 PM MANAGER VISUAL [facility] MICROBIOLOGY - GENERAL ORDERABLES Final Result Performing Organization Address [facility] [facility] de Phone Number [address] [phone] * (ABNORMAL) Urinalysis, microscopic only (09/28/2024 4:01 PM MANAGER VISUAL) Pathologist [facility] WBC, ur 6-10(A) 0 - 5 /HPF RBC, ur 0-2 0 - 2 /HPF [facility] Epithelial cells, squamous, ur 6-10(A) 0 - 5 /HPF [facility] Comment:Suggestive of contam ination. Consider recollection by clean catch. Mucous, ur Present(A) [facility] Hyaline casts, ur 6-10 0 - 10 /LPF [facility] Culture Reflex Comment Reflex conditions for urine culture (WBC >10) not met. [facility] Urine 09/28/2024 4:01 PM MANAGER VISUAL 09/28/2024 4:04 PM MANAGER VISUAL [facility] LAB URINE ORDERABLES Final Result Performing Organization Address [facility] Co de Phone Number [address] [phone] * eGFR (09/28/2024 4:00 PM MANAGER VISUAL) eGFR >90 >=60 mL/min/1. 73 m2 Comment: Interpretive Data Reference Interval Normal >/= 90 mL/min/1.73m2 Mildly decreased* 60 - 89 mL/min/1.73m2 Mildly to moderately decreased 45 - 59 mL/min/1.73m2 Moderately to severely decreased 30 - 44 mL/min/1.73m2 Severely decreased 15 - 29 mL/min/1.73m2 Kidney Failure < 15 mL/min/1.73m2 *Relative to young adult level Estimated glomerular filtration rate is determined by the 2020 CKD-EPI equation recommended by the National Kidney Foundation (A Unifying Approach to GFR Estimation: Recommendations of the NKF-ASK Task Force on Reassessing the Inclusion of Race in Diagnosing Kidney Disease, JASN 2020). The CKD-EPI equation should not be used for patients with unstable renal function and has not been validated in children and those over 70. Current interpretive data was last reviewed 2021. Blood 09/28/2024 4:00 PM MANAGER VISUAL 09/28/2024 4:04 PM MANAGER VISUAL Kurtis Epstein DO LAB BLOOD ORDERABLES Final Result [facility] [address] [facility] [place] [address] * (ABNORMAL) Differential, auto (09/28/2024 4:00 PM MANAGER VISUAL) Neutrophil abs 6.6(H) 1.5 - 6.5 K/cumm Imm gran abs 0.1 0.0 - 0.1 K/cumm [facility] Lymphocyte abs 1.2 0.8 - 3.3 K/cumm [facility] Monocyte abs 0.8 0.2 - 0.8 K/cumm [facility] Eosinophil abs 0.2 0.0 - 0.5 K/cumm [facility] Basophil abs 0.1 0.0 - 0.1 K/cumm [facility] Neutrophil pct 73.5 % [facility] Comment: Interpretive Data Percent cell count reference ranges are not reported, since discordance with absolute values may lead to misinterpretation of CBC data. Current Interpretive Data was last revised on 2017. Imm gran pct 0.6 % [facility] Comment: Interpretive Data Percent cell count reference ranges are not reported, since discordance with absolute values may lead to misinterpretation of CBC data. Current Interpretive Data was last revised on 2017. Lymphocyte pct 13.8 % [facility] Comment: Interpretive Data Percent cell count reference ranges are not reported, since discordance with absolute values may lead to misinterpretation of CBC data. Current Interpretive Data was last revised on 2017. Monocyte pct 9.1 % [facility] Comment: Interpretive Data Percent cell count reference ranges are not reported, since discordance with absolute values may lead to misinterpretation of CBC data. Current Interpretive Data was last revised on 2017. Eosinophil pct 2.1 % [facility] Comment: Interpretive Data Percent cell count reference ranges are not reported, since discordance with absolute values may lead to misinterpretation of CBC data. Current Interpretive Data was last revised on 2017. Basophil pct 0.9 % [facility] Comment: Interpretive Data Percent cell count reference ranges are not reported, since discordance with absolute values may lead to misinterpretation of CBC data. Current Interpretive Data was last revised on 2017. Blood 09/28/2024 4:00 PM MANAGER VISUAL 09/28/2024 4:04 PM MANAGER VISUAL Kurtis Epstein DO LAB BLOOD ORDERABLES Final Result [facility] [address] [facility] [place] [address] * (ABNORMAL) CBC with auto differential (09/28/2024 4:00 PM MANAGER VISUAL) WBC 8.9 3.8 - 9.9 K/cumm Hgb 13.9 11.9 - 15.5 g/dL [facility] Hct 44.1 35.6 - 45.5 % [facility] Plt 140(L) 150 - 400 K/cumm [facility] MPV 12.4(H) 9.1 - 12.3 fL [facility] RBC 4.79 3.90 - 5.20 M/cumm [facility] MCV 92.1 81.3 - 96.4 fL [facility] MCH 29.0 27.1 - 33.3 pg [facility] MCHC 31.5(L) 32.3 - 35.7 g/dL [facility] RDW CV 14.8 11.1 - 14.9 % [facility] RDW SD 49.7(H) 35.7 - 48.1 fL [facility] NRBC abs 0.00 0.00 - 0.01 K/cumm [facility] Blood 09/28/2024 4:00 PM MANAGER VISUAL 09/28/2024 4:04 PM MANAGER VISUAL Kurtis Epstein DO LAB BLOOD ORDERABLES Final Result [address] [place] [address] * Phosphorus (09/28/2024 4:00 PM MANAGER VISUAL) Pathologist [facility] Phosphorus, pl 3.2 2.3 - 4.5 mg/dL Blood 09/28/2024 4:00 PM MANAGER VISUAL 09/28/2024 4:04 PM MANAGER VISUAL Jes ARAUJO LAB BLOOD ORDERABLES Final Result Performing Organization Address City/[facility] Co de Phone Number [address] [place] [address] * Magnesium (09/28/2024 4:00 PM MANAGER VISUAL) Pathologist [facility] Magnesium 1.6 1.4 - 2.5 mg/dL Blood 09/28/2024 4:00 PM MANAGER VISUAL 09/28/2024 4:04 PM MANAGER VISUAL Jes ARAUJO LAB BLOOD ORDERABLES Final Result Performing Organization Address City/[facility] Co de Phone Number [address] [place] [address] * Comprehensive metabolic panel (09/28/2024 4:00 PM MANAGER VISUAL) Pathologist [facility] Sodium 142 135 - 145 mmol/L Potassium, pl 4.2 3.3 - 4.9 mmol/L [facility] Chloride 105 97 - 110 mmol/L [facility] CO2 25 22 - 32 mmol/L [facility] Anion gap 12 2 - 15 mmol/L [facility] BUN 23 6 - 25 mg/dL [facility] Creatinine 0.70 0.60 - 1.10 mg/dL [facility] Glucose 90 70 - 199 mg/dL [facility] Comment: Interpretive Data Fasting glucose >/= 126 mg/dl is diagnostic for diabetes. Fasting is defined as no caloric intake for at least 8 hours. Fasting glucose between 100 mg/dl to 125 mg/dl is diagnostic of prediabetes. In a patient with classic symptoms of hyperglycemia or hyperglycemic crisis, a random glucose >/= 200 mg/dl is diagnostic for diabetes. In the absence of unequivocal hyperglycemia, results should be confirmed by repeat testing. The classification and Diagnosis of Diabetes Diabetes Care 2021; 46: S19-S40. Current interpretive data was last revised 2022. Calcium 9.0 8.5 - 10.3 mg/dL [facility] Bilirubin, total 0.2 0.1 - 1.2 mg/dL [facility] Protein, pl 6.7 6.5 - 8.5 g/dL [facility] Albumin 3.9 3.5 - 5.0 g/dL [facility] Alk phos 71 40 - 130 Units/L [facility] ALT 14 7 - 45 Units/L [facility] AST 21 10 - 45 Units/L [facility] Blood 09/28/2024 4:00 PM MANAGER VISUAL 09/28/2024 4:04 PM MANAGER VISUAL Kurtis Epstein DO LAB BLOOD ORDERABLES Final Result [facility] [address] [facility] [place] [address] * ECG 12 lead (09/28/2024 3:47 PM MANAGER VISUAL) Ventricular Rate EKG/Min 69 BPM [facility] Atrial Rate 69 BPM [facility] DC-Interval (MSEC) 158 ms [facility] QRS-Interval (MSEC) 92 ms [facility] QT-Interval (MSEC) 412 ms [facility] QTc 441 ms [facility] P [place] 38 degrees [facility] R [place] 24 degrees [facility] T [place] 41 degrees [facility] Diagnosis Normal sinus rhythm Normal ECG When compared with ECG of 30-AUG-2024 12:52, Premature atrial complexes are no longer Present Confirmed by MITZI MCCAULEY M.D. ([id number]) on 09/29/2024 7:08:33 AM [facility] 09/28/2024 3:47 PM MANAGER VISUAL 09/29/2024 7:08 AM MANAGER VISUAL us Kurtis Epstein DO ECG ORDERABLES Final Resul t [facility] * Glucose, random (Outreach) (09/25/2024 9:10 AM MANAGER VISUAL) Glucose 119 70 - 199 mg/dL Comment: Interpretive Data Fasting glucose >/= 126 mg/dl is diagnostic for diabetes. Fasting is defined as no caloric intake for at least 8 hours. Fasting glucose between 100 mg/dl to 125 mg/dl is diagnostic of prediabetes. In a patient with classic symptoms of hyperglycemia or hyperglycemic crisis, a random glucose >/= 200 mg/dl is diagnostic for diabetes. In the absence of unequivocal hyperglycemia, results should be confirmed by repeat testing. The classification and Diagnosis of Diabetes Diabetes Care 2021; 46: S19-S40. Current interpretive data was last revised 2022. Blood 09/25/2024 9:10 AM MANAGER VISUAL 09/25/2024 11:28 AM MANAGER VISUAL us Miki Rodriguez MD LAB BLOOD ORDERABLES Final R esult [facility] Department [place] [address] * eGFR (09/25/2024 9:10 AM MANAGER VISUAL) eGFR 64 >=60 mL/min/1. 73 m2 Comment: Interpretive Data Reference Interval Normal >/= 90 mL/min/1.73m2 Mildly decreased* 60 - 89 mL/min/1.73m2 Mildly to moderately decreased 45 - 59 mL/min/1.73m2 Moderately to severely decreased 30 - 44 mL/min/1.73m2 Severely decreased 15 - 29 mL/min/1.73m2 Kidney Failure < 15 mL/min/1.73m2 *Relative to young adult level Estimated glomerular filtration rate is determined by the 2020 CKD-EPI equation recommended by the National Kidney Foundation (A Unifying Approach to GFR Estimation: Recommendations of the NKF-ASK Task Force on Reassessing the Inclusion of Race in Diagnosing Kidney Disease, JASN 2020). The CKD-EPI equation should not be used for patients with unstable renal function and has not been validated in children and those over 70. Current interpretive data was last reviewed 2021. Blood 09/25/2024 9:10 AM MANAGER VISUAL 09/25/2024 11:28 AM MANAGER VISUAL us Miki Rodriguez MD LAB BLOOD ORDERABLES Final R esult [facility] Department [place] [address] * Differential, auto (09/25/2024 9:10 AM MANAGER VISUAL) Neutrophil abs 5.7 1.5 - 6.5 K/cumm Imm gran abs 0.0 0.0 - 0.1 K/cumm [facility] Lymphocyte abs 1.4 0.8 - 3.3 K/cumm [facility] Monocyte abs 0.7 0.2 - 0.8 K/cumm [facility] Eosinophil abs 0.2 0.0 - 0.5 K/cumm [facility] Basophil abs 0.1 0.0 - 0.1 K/cumm [facility] Neutrophil pct 70.0 % [facility] Comment: Confirmed by smear review Interpretive Data Percent cell count reference ranges are not reported, since discordance with absolute values may lead to misinterpretation of CBC data. Current Interpretive Data was last revised on 2017. Imm gran pct 0.5 % [facility] Comment: Interpretive Data Percent cell count reference ranges are not reported, since discordance with absolute values may lead to misinterpretation of CBC data. Current Interpretive Data was last revised on 2017. Lymphocyte pct 17.6 % [facility] Comment: Interpretive Data Percent cell count reference ranges are not reported, since discordance with absolute values may lead to misinterpretation of CBC data. Current Interpretive Data was last revised on 2017. Monocyte pct 8.9 % [facility] Comment: Interpretive Data Percent cell count reference ranges are not reported, since discordance with absolute values may lead to misinterpretation of CBC data. Current Interpretive Data was last revised on 2017. Eosinophil pct 2.1 % [facility] Comment: Interpretive Data Percent cell count reference ranges are not reported, since discordance with absolute values may lead to misinterpretation of CBC data. Current Interpretive Data was last revised on 2017. Basophil pct 0.9 % [facility] Comment: Interpretive Data Percent cell count reference ranges are not reported, since discordance with absolute values may lead to misinterpretation of CBC data. Current Interpretive Data was last revised on 2017. Blood 09/25/2024 9:10 AM MANAGER VISUAL 09/25/2024 11:28 AM MANAGER VISUAL us Miki Rodriguez MD LAB BLOOD ORDERABLES Final R esult [facility] [address] [facility] Department [place] [address] * Comprehensive metabolic panel, without glucose (Outreach) (09/25/2024 9:10 AM MANAGER VISUAL) Sodium 141 135 - 145 mmol/L Potassium, pl 4.6 3.3 - 4.9 mmol/L [facility] Comment:Hemolyzed; Potassium value may be falsely elevated by as much as 0.3-0.5 mmol/L. Suggest redraw and reanalysis. Chloride 103 97 - 110 mmol/L [facility] CO2 28 22 - 32 mmol/L [facility] Anion gap 10 2 - 15 mmol/L [facility] BUN 15 6 - 25 mg/dL [facility] Creatinine 0.94 0.60 - 1.10 mg/dL [facility] Calcium 9.1 8.5 - 10.3 mg/dL [facility] Protein, pl 7.2 6.5 - 8.5 g/dL [facility] Albumin 4.1 3.5 - 5.0 g/dL [facility] Bilirubin, total 0.3 0.1 - 1.2 mg/dL [facility] Alk phos 80 40 - 130 Units/L [facility] AST 31 10 - 45 Units/L [facility] Comment:Hemolyzed; result ma y be falsely elevated ALT 27 7 - 45 Units/L [facility] Blood 09/25/2024 9:10 AM MANAGER VISUAL 09/25/2024 11:28 AM MANAGER VISUAL us Miki Rodriguez MD LAB BLOOD ORDERABLES Final R esult [facility] Department [place] [address] * (ABNORMAL) CBC with auto differential (09/25/2024 9:10 AM MANAGER VISUAL) [facility] WBC 8.2 3.8 - 9.9 K/cumm Hgb 13.4 11.9 - 15.5 g/dL [facility] Hct 43.0 35.6 - 45.5 % [facility] Plt 118(L) 150 - 400 K/cumm [facility] Comment:No clot detected in sample. MPV Not Measured 9.1 - 12.3 fL [facility] RBC 4.60 3.90 - 5.20 M/cumm [facility] MCV 93.5 81.3 - 96.4 fL [facility] MCH 29.1 27.1 - 33.3 pg [facility] MCHC 31.2(L) 32.3 - 35.7 g/dL [facility] RDW CV 14.7 11.1 - 14.9 % [facility] RDW SD 50.4(H) 35.7 - 48.1 fL [facility] NRBC abs 0.00 0.00 - 0.01 K/cumm [facility] Blood 09/25/2024 9:10 AM MANAGER VISUAL 09/25/2024 11:28 AM MANAGER VISUAL us Miki Rodriguez MD LAB BLOOD ORDERABLES Final R esult Performing Organization Address [facility] de Phone Number [facility] [place] [address] * Erythrocyte sedimentation rate (09/25/2024 9:10 AM MANAGER VISUAL) Erythrocyte sedimentation rate 19 1 - 30 mm/hr Blood 09/25/2024 9:10 AM MANAGER VISUAL 09/25/2024 11:28 AM MANAGER VISUAL us Miki Rodriguez MD LAB BLOOD ORDERABLES Final R esult Performing Organization Address [facility] de Phone Number [facility] Department [place] [address] * Glucose, random (Outreach) (09/18/2024 11:20 AM MANAGER VISUAL) Glucose 115 70 - 199 mg/dL Comment: Interpretive Data Fasting glucose >/= 126 mg/dl is diagnostic for diabetes. Fasting is defined as no caloric intake for at least 8 hours. Fasting glucose between 100 mg/dl to 125 mg/dl is diagnostic of prediabetes. In a patient with classic symptoms of hyperglycemia or hyperglycemic crisis, a random glucose >/= 200 mg/dl is diagnostic for diabetes. In the absence of unequivocal hyperglycemia, results should be confirmed by repeat testing. The classification and Diagnosis of Diabetes Diabetes Care 2021; 46: S19-S40. Current interpretive data was last revised 2022. Blood 09/18/2024 11:2 0 AM MANAGER VISUAL 09/18/2024 2:59 PM MANAGER VISUAL us Miki Rodriguez MD LAB BLOOD ORDERABLES Final R esult Performing Organization Address [facility] de Phone Number [facility] Department [place] [address] * eGFR (09/18/2024 11:20 AM MANAGER VISUAL) eGFR 79 >=60 mL/min/1. 73 m2 Comment: Interpretive Data Reference Interval Normal >/= 90 mL/min/1.73m2 Mildly decreased* 60 - 89 mL/min/1.73m2 Mildly to moderately decreased 45 - 59 mL/min/1.73m2 Moderately to severely decreased 30 - 44 mL/min/1.73m2 Severely decreased 15 - 29 mL/min/1.73m2 Kidney Failure < 15 mL/min/1.73m2 *Relative to young adult level Estimated glomerular filtration rate is determined by the 2020 CKD-EPI equation recommended by the National Kidney Foundation (A Unifying Approach to GFR Estimation: Recommendations of the NKF-ASK Task Force on Reassessing the Inclusion of Race in Diagnosing Kidney Disease, JASN 2020). The CKD-EPI equation should not be used for patients with unstable renal function and has not been validated in children and those over 70. Current interpretive data was last reviewed 2021. Blood 09/18/2024 11:2 0 AM MANAGER VISUAL 09/18/2024 3:13 PM MANAGER VISUAL us Miki Rodriguez MD LAB BLOOD ORDERABLES Final R esult [facility] [place] [facility] Department [place] [address] * Differential, auto (09/18/2024 11:20 AM MANAGER VISUAL) Neutrophil abs 5.3 1.5 - 6.5 K/cumm Imm gran abs 0.1 0.0 - 0.1 K/cumm [facility] Lymphocyte abs 1.0 0.8 - 3.3 K/cumm [facility] Monocyte abs 0.7 0.2 - 0.8 K/cumm [facility] Eosinophil abs 0.3 0.0 - 0.5 K/cumm [facility] Basophil abs 0.1 0.0 - 0.1 K/cumm [facility] Neutrophil pct 71.7 % [facility] Comment: Confirmed by smear review Interpretive Data Percent cell count reference ranges are not reported, since discordance with absolute values may lead to misinterpretation of CBC data. Current Interpretive Data was last revised on 2017. Imm gran pct 0.7 % [facility] Comment: Interpretive Data Percent cell count reference ranges are not reported, since discordance with absolute values may lead to misinterpretation of CBC data. Current Interpretive Data was last revised on 2017. Lymphocyte pct 13.9 % [facility] Comment: Interpretive Data Percent cell count reference ranges are not reported, since discordance with absolute values may lead to misinterpretation of CBC data. Current Interpretive Data was last revised on 2017. Monocyte pct 9.4 % [facility] Comment: Interpretive Data Percent cell count reference ranges are not reported, since discordance with absolute values may lead to misinterpretation of CBC data. Current Interpretive Data was last revised on 2017. Eosinophil pct 3.5 % [facility] Comment: Interpretive Data Percent cell count reference ranges are not reported, since discordance with absolute values may lead to misinterpretation of CBC data. Current Interpretive Data was last revised on 2017. Basophil pct 0.8 % [facility] Comment: Interpretive Data Percent cell count reference ranges are not reported, since discordance with absolute values may lead to misinterpretation of CBC data. Current Interpretive Data was last revised on 2017. Blood 09/18/2024 11:2 0 AM MANAGER VISUAL 09/18/2024 2:59 PM MANAGER VISUAL us Miki Rodriguez MD LAB BLOOD ORDERABLES Final R esult [facility] Department [place] [address] * (ABNORMAL) Comprehensive metabolic panel, without glucose (Outreach) (09/18/2024 11:20 AM MANAGER VISUAL) Sodium 138 135 - 145 mmol/L Potassium, pl 5.4(H) 3.3 - 4.9 mmol/L [facility] Comment:Hemolyzed; Potassium value may be falsely elevated by as much as 0.6-1.0 mmol/L. Suggest redraw and reanalysis. Chloride 103 97 - 110 mmol/L [facility] CO2 27 22 - 32 mmol/L [facility] Anion gap 8 2 - 15 mmol/L [facility] BUN 18 6 - 25 mg/dL [facility] Creatinine 0.79 0.60 - 1.10 mg/dL [facility] Calcium 9.2 8.5 - 10.3 mg/dL [facility] Protein, pl 7.3 6.5 - 8.5 g/dL [facility] Albumin 3.7 3.5 - 5.0 g/dL [facility] Bilirubin, total 0.3 0.1 - 1.2 mg/dL [facility] Alk phos 83 40 - 130 Units/L [facility] AST 48(H) 10 - 45 Units/L [facility] Comment:Hemolyzed; result ma y be falsely elevated ALT 28 7 - 45 Units/L [facility] Blood 09/18/2024 11:2 0 AM MANAGER VISUAL 09/18/2024 2:59 PM MANAGER VISUAL us Miki Rodriguez MD LAB BLOOD ORDERABLES Final R esult [facility] Department [place] [address] * (ABNORMAL) CBC with auto differential (09/18/2024 11:20 AM MANAGER VISUAL) [facility] WBC 7.4 3.8 - 9.9 K/cumm Hgb 13.3 11.9 - 15.5 g/dL [facility] Hct 40.8 35.6 - 45.5 % [facility] Plt 139(L) 150 - 400 K/cumm [facility] Comment:No clot detected in sample. MPV 14.3(H) 9.1 - 12.3 fL [facility] RBC 4.60 3.90 - 5.20 M/cumm [facility] MCV 88.7 81.3 - 96.4 fL [facility] MCH 28.9 27.1 - 33.3 pg [facility] MCHC 32.6 32.3 - 35.7 g/dL [facility] RDW CV 15.2(H) 11.1 - 14.9 % [facility] RDW SD 48.9(H) 35.7 - 48.1 fL [facility] NRBC abs 0.02(H) 0.00 - 0.01 K/cumm [facility] Blood 09/18/2024 11:2 0 AM MANAGER VISUAL 09/18/2024 2:59 PM MANAGER VISUAL Miki Rodriguez MD LAB BLOOD ORDERABLES Final R esult Performing Organization Address City/[facility] Co de Phone Number [facility] [place] [address] * Erythrocyte sedimentation rate (09/18/2024 11:20 AM MANAGER VISUAL) Erythrocyte sedimentation rate 19 1 - 30 mm/hr Blood 09/18/2024 11:2 0 AM MANAGER VISUAL 09/18/2024 2:59 PM MANAGER VISUAL Miki Rodriguez MD LAB BLOOD ORDERABLES Final R esult Performing Organization Address City/[facility] Co de Phone Number [facility] [place] [address] * eGFR (09/17/2024 3:49 AM MANAGER VISUAL) eGFR >90 >=60 mL/min/1. 73 m2 Comment: Interpretive Data Reference Interval Normal >/= 90 mL/min/1.73m2 Mildly decreased* 60 - 89 mL/min/1.73m2 Mildly to moderately decreased 45 - 59 mL/min/1.73m2 Moderately to severely decreased 30 - 44 mL/min/1.73m2 Severely decreased 15 - 29 mL/min/1.73m2 Kidney Failure < 15 mL/min/1.73m2 *Relative to young adult level Estimated glomerular filtration rate is determined by the 2020 CKD-EPI equation recommended by the National Kidney Foundation (A Unifying Approach to GFR Estimation: Recommendations of the NKF-ASK Task Force on Reassessing the Inclusion of Race in Diagnosing Kidney Disease, JASN 2020). The CKD-EPI equation should not be used for patients with unstable renal function and has not been validated in children and those over 70. Current interpretive data was last reviewed 2021. Blood 09/17/2024 3:49 AM MANAGER VISUAL 09/17/2024 4:02 AM MANAGER VISUAL Lore ARAUJO LAB BLOOD ORDERABLES Final Result Performing Organization Address City/[facility]/ZIP Co de Phone Number [address] [place] [address] * Hemoglobin and hematocrit (09/17/2024 3:49 AM MANAGER VISUAL) Pathologist [facility] Hgb 12.8 11.9 - 15.5 g/dL Hct 40.9 35.6 - 45.5 % [facility] Blood 09/17/2024 3:49 AM MANAGER VISUAL 09/17/2024 4:02 AM MANAGER VISUAL Lore ARAUJO LAB BLOOD ORDERABLES Final Result Performing Organization Address City/[facility] Co de Phone Number [address] [address] * Basic metabolic panel (09/17/2024 3:49 AM MANAGER VISUAL) Sodium 140 135 - 145 mmol/L Potassium, pl 4.1 3.3 - 4.9 mmol/L [facility] Chloride 105 97 - 110 mmol/L [facility] CO2 25 22 - 32 mmol/L [facility] Anion gap 10 2 - 15 mmol/L [facility] BUN 20 6 - 25 mg/dL [facility] Creatinine 0.67 0.60 - 1.10 mg/dL [facility] Glucose 101 70 - 199 mg/dL [facility] Comment: Interpretive Data Fasting glucose >/= 126 mg/dl is diagnostic for diabetes. Fasting is defined as no caloric intake for at least 8 hours. Fasting glucose between 100 mg/dl to 125 mg/dl is diagnostic of prediabetes. In a patient with classic symptoms of hyperglycemia or hyperglycemic crisis, a random glucose >/= 200 mg/dl is diagnostic for diabetes. In the absence of unequivocal hyperglycemia, results should be confirmed by repeat testing. The classification and Diagnosis of Diabetes Diabetes Care 2021; 46: S19-S40. Current interpretive data was last revised 2022. Calcium 9.2 8.5 - 10.3 mg/dL KEN Blood 09/17/2024 3:49 AM MANAGER VISUAL 09/17/2024 4:02 AM MANAGER VISUAL Lore ARAUJO LAB BLOOD ORDERABLES Final Result KEN [facility] [facility] [place] [address] * eGFR (09/16/2024 3:14 AM MANAGER VISUAL) eGFR >90 >=60 mL/min/1. 73 m2 Comment: Interpretive Data Reference Interval Normal >/= 90 mL/min/1.73m2 Mildly decreased* 60 - 89 mL/min/1.73m2 Mildly to moderately decreased 45 - 59 mL/min/1.73m2 Moderately to severely decreased 30 - 44 mL/min/1.73m2 Severely decreased 15 - 29 mL/min/1.73m2 Kidney Failure < 15 mL/min/1.73m2 *Relative to young adult level Estimated glomerular filtration rate is determined by the 2020 CKD-EPI equation recommended by the National Kidney Foundation (A Unifying Approach to GFR Estimation: Recommendations of the NKF-ASK Task Force on Reassessing the Inclusion of Race in Diagnosing Kidney Disease, JASN 2020). The CKD-EPI equation should not be used for patients with unstable renal function and has not been validated in children and those over 70. Current interpretive data was last reviewed 2021. Blood 09/16/2024 3:14 AM MANAGER VISUAL 09/16/2024 3:17 AM MANAGER VISUAL Lore ARAUJO LAB BLOOD ORDERABLES Final Result Performing Organization Address City/[facility]/ZIP Co de Phone Number [address] [address] * Hemoglobin and hematocrit (09/16/2024 3:14 AM MANAGER VISUAL) [facility] Hgb 13.2 11.9 - 15.5 g/dL Hct 40.8 35.6 - 45.5 % [facility] Blood 09/16/2024 3:14 AM MANAGER VISUAL 09/16/2024 3:18 AM MANAGER VISUAL Lore ARAUJO LAB BLOOD ORDERABLES Final Result Performing Organization Address [facility] de Phone Number [address] [address] * Basic metabolic panel (09/16/2024 3:14 AM MANAGER VISUAL) [facility] Sodium 138 135 - 145 mmol/L Potassium, pl 4.0 3.3 - 4.9 mmol/L [facility] Chloride 103 97 - 110 mmol/L [facility] CO2 26 22 - 32 mmol/L [facility] Anion gap 9 2 - 15 mmol/L [facility] BUN 24 6 - 25 mg/dL [facility] Creatinine 0.65 0.60 - 1.10 mg/dL [facility] Glucose 111 70 - 199 mg/dL [facility] Comment: Interpretive Data Fasting glucose >/= 126 mg/dl is diagnostic for diabetes. Fasting is defined as no caloric intake for at least 8 hours. Fasting glucose between 100 mg/dl to 125 mg/dl is diagnostic of prediabetes. In a patient with classic symptoms of hyperglycemia or hyperglycemic crisis, a random glucose >/= 200 mg/dl is diagnostic for diabetes. In the absence of unequivocal hyperglycemia, results should be confirmed by repeat testing. The classification and Diagnosis of Diabetes Diabetes Care 2021; 46: S19-S40. Current interpretive data was last revised 2022. Calcium 9.3 8.5 - 10.3 mg/dL [facility] Blood 09/16/2024 3:14 AM MANAGER VISUAL 09/16/2024 3:17 AM MANAGER VISUAL Lore ARAUJO LAB BLOOD ORDERABLES Final Result Performing Organization Address City/[facility] Co de Phone Number KEN [address] [place] [place] [address] * eGFR (09/15/2024 7:54 AM MANAGER VISUAL) eGFR 84 >=60 mL/min/1. 73 m2 Comment: Interpretive Data Reference Interval Normal >/= 90 mL/min/1.73m2 Mildly decreased* 60 - 89 mL/min/1.73m2 Mildly to moderately decreased 45 - 59 mL/min/1.73m2 Moderately to severely decreased 30 - 44 mL/min/1.73m2 Severely decreased 15 - 29 mL/min/1.73m2 Kidney Failure < 15 mL/min/1.73m2 *Relative to young adult level Estimated glomerular filtration rate is determined by the 2020 CKD-EPI equation recommended by the National Kidney Foundation (A Unifying Approach to GFR Estimation: Recommendations of the NKF-ASK Task Force on Reassessing the Inclusion of Race in Diagnosing Kidney Disease, JASN 2020). The CKD-EPI equation should not be used for patients with unstable renal function and has not been validated in children and those over 70. Current interpretive data was last reviewed 2021. Blood 09/15/2024 7:54 AM MANAGER VISUAL 09/15/2024 8:06 AM MANAGER VISUAL Lore ARAUJO LAB BLOOD ORDERABLES Final Result Performing Organization Address City/[facility]/ZIP Co de Phone Number KEN [address] [place] [employer] [place] [address] * Hemoglobin and hematocrit (09/15/2024 7:54 AM MANAGER VISUAL) Pathologist [facility] Hgb 13.7 11.9 - 15.5 g/dL Hct 43.2 35.6 - 45.5 % [facility] Blood 09/15/2024 7:54 AM MANAGER VISUAL 09/15/2024 8:06 AM MANAGER VISUAL Lore ARAUJO LAB BLOOD ORDERABLES Final Result Performing Organization Address [facility] de Phone Number KEN [address] [place] [address] * Basic metabolic panel (09/15/2024 7:54 AM MANAGER VISUAL) [facility] Sodium 139 135 - 145 mmol/L Potassium, pl 4.5 3.3 - 4.9 mmol/L [facility] Chloride 101 97 - 110 mmol/L [facility] CO2 30 22 - 32 mmol/L [facility] Anion gap 8 2 - 15 mmol/L [facility] BUN 17 6 - 25 mg/dL [facility] Creatinine 0.75 0.60 - 1.10 mg/dL [facility] Glucose 107 70 - 199 mg/dL [facility] Comment: Interpretive Data Fasting glucose >/= 126 mg/dl is diagnostic for diabetes. Fasting is defined as no caloric intake for at least 8 hours. Fasting glucose between 100 mg/dl to 125 mg/dl is diagnostic of prediabetes. In a patient with classic symptoms of hyperglycemia or hyperglycemic crisis, a random glucose >/= 200 mg/dl is diagnostic for diabetes. In the absence of unequivocal hyperglycemia, results should be confirmed by repeat testing. The classification and Diagnosis of Diabetes Diabetes Care 202; 46: S19-S40. Current interpretive data was last revised 2022. Calcium 9.3 8.5 - 10.3 mg/dL [facility] Blood 09/15/2024 7:54 AM MANAGER VISUAL 09/15/2024 8:06 AM MANAGER VISUAL Lore ARAUJO LAB BLOOD ORDERABLES Final Result Performing Organization Address City/[facility]/ZIP Co de Phone Number KEN [address] [place] [address] * eGFR (09/14/2024 5:19 AM MANAGER VISUAL) [facility] eGFR 79 >=60 mL/min/1. 73 m2 Comment: Interpretive Data Reference Interval Normal >/= 90 mL/min/1.73m2 Mildly decreased* 60 - 89 mL/min/1.73m2 Mildly to moderately decreased 45 - 59 mL/min/1.73m2 Moderately to severely decreased 30 - 44 mL/min/1.73m2 Severely decreased 15 - 29 mL/min/1.73m2 Kidney Failure < 15 mL/min/1.73m2 *Relative to young adult level Estimated glomerular filtration rate is determined by the 2020 CKD-EPI equation recommended by the National Kidney Foundation (A Unifying Approach to GFR Estimation: Recommendations of the NKF-ASK Task Force on Reassessing the Inclusion of Race in Diagnosing Kidney Disease, JASN 2020). The CKD-EPI equation should not be used for patients with unstable renal function and has not been validated in children and those over 70. Current interpretive data was last reviewed 2021. Blood 09/14/2024 5:19 AM MANAGER VISUAL 09/14/2024 6:02 AM MANAGER VISUAL Lore ARAUJO LAB BLOOD ORDERABLES Final Result [facility] [address] [facility] [place] [address] * Differential, auto (09/14/2024 5:19 AM MANAGER VISUAL) Pathologist [facility] Neutrophil abs 3.5 1.5 - 6.5 K/cumm Imm gran abs 0.0 0.0 - 0.1 K/cumm [facility] Lymphocyte abs 1.1 0.8 - 3.3 K/cumm [facility] Monocyte abs 0.7 0.2 - 0.8 K/cumm [facility] Eosinophil abs 0.3 0.0 - 0.5 K/cumm [facility] Basophil abs 0.1 0.0 - 0.1 K/cumm [facility] Neutrophil pct 62.5 % [facility] Comment: Interpretive Data Percent cell count reference ranges are not reported, since discordance with absolute values may lead to misinterpretation of CBC data. Current Interpretive Data was last revised on 2017. Imm gran pct 0.5 % [facility] Comment: Interpretive Data Percent cell count reference ranges are not reported, since discordance with absolute values may lead to misinterpretation of CBC data. Current Interpretive Data was last revised on 2017. Lymphocyte pct 19.4 % [facility] Comment: Interpretive Data Percent cell count reference ranges are not reported, since discordance with absolute values may lead to misinterpretation of CBC data. Current Interpretive Data was last revised on 2017. Monocyte pct 12.1 % [facility] Comment: Interpretive Data Percent cell count reference ranges are not reported, since discordance with absolute values may lead to misinterpretation of CBC data. Current Interpretive Data was last revised on 2017. Eosinophil pct 4.4 % [facility] Comment: Interpretive Data Percent cell count reference ranges are not reported, since discordance with absolute values may lead to misinterpretation of CBC data. Current Interpretive Data was last revised on 2017. Basophil pct 1.1 % [facility] Comment: Interpretive Data Percent cell count reference ranges are not reported, since discordance with absolute values may lead to misinterpretation of CBC data. Current Interpretive Data was last revised on 2017. Blood 09/14/2024 5:19 AM MANAGER VISUAL 09/14/2024 6:02 AM MANAGER VISUAL us Miki Rodriguez MD LAB BLOOD ORDERABLES Final R esult [facility] [address] [facility] [place] [address] * (ABNORMAL) CBC with auto differential (09/14/2024 5:19 AM MANAGER VISUAL) Pathologist [facility] WBC 5.6 3.8 - 9.9 K/cumm Hgb 13.0 11.9 - 15.5 g/dL [facility] Hct 41.2 35.6 - 45.5 % [facility] Plt 120(L) 150 - 400 K/cumm [facility] MPV 12.2 9.1 - 12.3 fL [facility] RBC 4.45 3.90 - 5.20 M/cumm [facility] MCV 92.6 81.3 - 96.4 fL [facility] MCH 29.2 27.1 - 33.3 pg [facility] MCHC 31.6(L) 32.3 - 35.7 g/dL [facility] RDW CV 15.5(H) 11.1 - 14.9 % [facility] RDW SD 52.1(H) 35.7 - 48.1 fL [facility] NRBC abs 0.00 0.00 - 0.01 K/cumm [facility] Blood 09/14/2024 5:19 AM MANAGER VISUAL 09/14/2024 6:02 AM MANAGER VISUAL us Miki Rodriguez MD LAB BLOOD ORDERABLES Final R esult [facility] [address] [facility] Department of Laboratories [place], [place] [id number] * Basic metabolic panel (09/14/2024 5:19 AM MANAGER VISUAL) Pathologist [facility] Sodium 139 135 - 145 mmol/L Potassium, pl 4.1 3.3 - 4.9 mmol/L [facility] Chloride 101 97 - 110 mmol/L [facility] CO2 29 22 - 32 mmol/L [facility] Anion gap 9 2 - 15 mmol/L [facility] BUN 20 6 - 25 mg/dL [facility] Creatinine 0.79 0.60 - 1.10 mg/dL [facility] Glucose 107 70 - 199 mg/dL [facility] Comment: Interpretive Data Fasting glucose >/= 126 mg/dl is diagnostic for diabetes. Fasting is defined as no caloric intake for at least 8 hours. Fasting glucose between 100 mg/dl to 125 mg/dl is diagnostic of prediabetes. In a patient with classic symptoms of hyperglycemia or hyperglycemic crisis, a random glucose >/= 200 mg/dl is diagnostic for diabetes. In the absence of unequivocal hyperglycemia, results should be confirmed by repeat testing. The classification and Diagnosis of Diabetes Diabetes Care 2021; 46: S19-S40. Current interpretive data was last revised 2022. Calcium 8.9 8.5 - 10.3 mg/dL [facility] Blood 09/14/2024 5:19 AM MANAGER VISUAL 09/14/2024 6:02 AM MANAGER VISUAL us Lore ARAUJO LAB BLOOD ORDERABLES Final Result Performing Organization Address [facility]/ZIP Co de Phone Number KEN [address] [place] [address] * eGFR (09/13/2024 5:14 AM MANAGER VISUAL) Pathologist [facility] eGFR 85 >=60 mL/min/1. 73 m2 Comment: Interpretive Data Reference Interval Normal >/= 90 mL/min/1.73m2 Mildly decreased* 60 - 89 mL/min/1.73m2 Mildly to moderately decreased 45 - 59 mL/min/1.73m2 Moderately to severely decreased 30 - 44 mL/min/1.73m2 Severely decreased 15 - 29 mL/min/1.73m2 Kidney Failure < 15 mL/min/1.73m2 *Relative to young adult level Estimated glomerular filtration rate is determined by the 2020 CKD-EPI equation recommended by the National Kidney Foundation (A Unifying Approach to GFR Estimation: Recommendations of the NKF-ASK Task Force on Reassessing the Inclusion of Race in Diagnosing Kidney Disease, JASN 2020). The CKD-EPI equation should not be used for patients with unstable renal function and has not been validated in children and those over 70. Current interpretive data was last reviewed 2021. Blood 09/13/2024 5:14 AM MANAGER VISUAL 09/13/2024 5:31 AM MANAGER VISUAL us Miki Rodriguez MD LAB BLOOD ORDERABLES Final R esult Performing Organization Address City/[facility]/ZIP Co de Phone Number KEN [address] Department [place] [address] * Differential, auto (09/13/2024 5:14 AM MANAGER VISUAL) Pathologist [facility] Neutrophil abs 4.2 1.5 - 6.5 K/cumm Imm gran abs 0.0 0.0 - 0.1 K/cumm [facility] Lymphocyte abs 1.1 0.8 - 3.3 K/cumm [facility] Monocyte abs 0.6 0.2 - 0.8 K/cumm [facility] Eosinophil abs 0.2 0.0 - 0.5 K/cumm [facility] Basophil abs 0.1 0.0 - 0.1 K/cumm [facility] Neutrophil pct 67.6 % [facility] Comment: Interpretive Data Percent cell count reference ranges are not reported, since discordance with absolute values may lead to misinterpretation of CBC data. Current Interpretive Data was last revised on 2017. Imm gran pct 0.5 % [facility] Comment: Interpretive Data Percent cell count reference ranges are not reported, since discordance with absolute values may lead to misinterpretation of CBC data. Current Interpretive Data was last revised on 2017. Lymphocyte pct 17.3 % [facility] Comment: Interpretive Data Percent cell count reference ranges are not reported, since discordance with absolute values may lead to misinterpretation of CBC data. Current Interpretive Data was last revised on 2017. Monocyte pct 9.9 % [facility] Comment: Interpretive Data Percent cell count reference ranges are not reported, since discordance with absolute values may lead to misinterpretation of CBC data. Current Interpretive Data was last revised on 2017. Eosinophil pct 3.9 % [facility] Comment: Interpretive Data Percent cell count reference ranges are not reported, since discordance with absolute values may lead to misinterpretation of CBC data. Current Interpretive Data was last revised on 2017. Basophil pct 0.8 % [facility] Comment: Interpretive Data Percent cell count reference ranges are not reported, since discordance with absolute values may lead to misinterpretation of CBC data. Current Interpretive Data was last revised on 2017. Blood 09/13/2024 5:14 AM MANAGER VISUAL 09/13/2024 5:31 AM MANAGER VISUAL us Miki Rodriguez MD LAB BLOOD ORDERABLES Final R esult [facility] [address] [facility] [place] [address] * (ABNORMAL) CBC with auto differential (09/13/2024 5:14 AM MANAGER VISUAL) WBC 6.1 3.8 - 9.9 K/cumm Hgb 12.5 11.9 - 15.5 g/dL [facility] Hct 40.0 35.6 - 45.5 % [facility] Plt 119(L) 150 - 400 K/cumm [facility] MPV 12.4(H) 9.1 - 12.3 fL [facility] RBC 4.32 3.90 - 5.20 M/cumm [facility] MCV 92.6 81.3 - 96.4 fL [facility] MCH 28.9 27.1 - 33.3 pg [facility] MCHC 31.3(L) 32.3 - 35.7 g/dL [facility] RDW CV 15.4(H) 11.1 - 14.9 % [facility] RDW SD 52.1(H) 35.7 - 48.1 fL [facility] NRBC abs 0.00 0.00 - 0.01 K/cumm [facility] Blood 09/13/2024 5:14 AM MANAGER VISUAL 09/13/2024 5:31 AM MANAGER VISUAL Miki Rodriguez MD LAB BLOOD ORDERABLES Final R esult Performing Organization Address [facility] Co de Phone Number [address] [place] [address] * Erythrocyte sedimentation rate (09/13/2024 5:14 AM MANAGER VISUAL) [facility] Erythrocyte sedimentation rate 22 1 - 30 mm/hr Blood 09/13/2024 5:14 AM MANAGER VISUAL 09/13/2024 5:31 AM MANAGER VISUAL Miki Rodriguez MD LAB BLOOD ORDERABLES Final R esult Performing Organization Address [facility] Co de Phone Number [address] [place] [address] * Vancomycin level trough (09/13/2024 5:14 AM MANAGER VISUAL) [facility] Vancomycin trough 11.1 10.0 - 20.0 mcg/mL Blood 09/13/2024 5:14 AM MANAGER VISUAL 09/13/2024 5:31 AM MANAGER VISUAL Poncho Enriquez DO LAB BLOOD ORDERABLES Final Res ult Performing Organization Address [facility]/ZIP Co de Phone Number [facility] [address] [facility] [place] [address] * (ABNORMAL) Comprehensive metabolic panel (09/13/2024 5:14 AM MANAGER VISUAL) Sodium 139 135 - 145 mmol/L Potassium, pl 4.2 3.3 - 4.9 mmol/L [facility] Chloride 103 97 - 110 mmol/L [facility] CO2 28 22 - 32 mmol/L [facility] Anion gap 8 2 - 15 mmol/L [facility] BUN 15 6 - 25 mg/dL [facility] Creatinine 0.74 0.60 - 1.10 mg/dL [facility] Glucose 101 70 - 199 mg/dL [facility] Comment: Interpretive Data Fasting glucose >/= 126 mg/dl is diagnostic for diabetes. Fasting is defined as no caloric intake for at least 8 hours. Fasting glucose between 100 mg/dl to 125 mg/dl is diagnostic of prediabetes. In a patient with classic symptoms of hyperglycemia or hyperglycemic crisis, a random glucose >/= 200 mg/dl is diagnostic for diabetes. In the absence of unequivocal hyperglycemia, results should be confirmed by repeat testing. The classification and Diagnosis of Diabetes Diabetes Care 202; 46: S19-S40. Current interpretive data was last revised 2022. Calcium 9.2 8.5 - 10.3 mg/dL [facility] Bilirubin, total 0.3 0.1 - 1.2 mg/dL [facility] Protein, pl 6.1(L) 6.5 - 8.5 g/dL [facility] Albumin 3.5 3.5 - 5.0 g/dL [facility] Alk phos 72 40 - 130 Units/L [facility] ALT 6(L) 7 - 45 Units/L [facility] AST 16 10 - 45 Units/L [facility] Blood 09/13/2024 5:14 AM MANAGER VISUAL 09/13/2024 5:31 AM MANAGER VISUAL Miki Rodriguez MD LAB BLOOD ORDERABLES Final R esult Performing Organization Address [facility]/ZIP Co de Phone Number [address] [address] * eGFR (09/12/2024 6:17 AM MANAGER VISUAL) eGFR 87 >=60 mL/min/1. 73 m2 Comment: Interpretive Data Reference Interval Normal >/= 90 mL/min/1.73m2 Mildly decreased* 60 - 89 mL/min/1.73m2 Mildly to moderately decreased 45 - 59 mL/min/1.73m2 Moderately to severely decreased 30 - 44 mL/min/1.73m2 Severely decreased 15 - 29 mL/min/1.73m2 Kidney Failure < 15 mL/min/1.73m2 *Relative to young adult level Estimated glomerular filtration rate is determined by the 2020 CKD-EPI equation recommended by the National Kidney Foundation (A Unifying Approach to GFR Estimation: Recommendations of the NKF-ASK Task Force on Reassessing the Inclusion of Race in Diagnosing Kidney Disease, JASN 2020). The CKD-EPI equation should not be used for patients with unstable renal function and has not been validated in children and those over 70. Current interpretive data was last reviewed 2021. Blood 09/12/2024 6:17 AM MANAGER VISUAL 09/12/2024 6:46 AM MANAGER VISUAL Lore ARAUJO LAB BLOOD ORDERABLES Final Result Performing Organization Address City/[facility] Co de Phone Number [address] [address] * Hemoglobin and hematocrit (09/12/2024 6:17 AM MANAGER VISUAL) [facility] Hgb 12.5 11.9 - 15.5 g/dL Hct 40.1 35.6 - 45.5 % [facility] Blood 09/12/2024 6:17 AM MANAGER VISUAL 09/12/2024 6:46 AM MANAGER VISUAL Lore ARAUJO LAB BLOOD ORDERABLES Final Result Performing Organization Address City/[facility] Co de Phone Number [address] [place] [address] * (ABNORMAL) Hemoglobin A1c (09/12/2024 6:17 AM MANAGER VISUAL) Hgb A1C 6.2(H) 4.0 - 5.6 % Estimated Average Glucose 131 mg/dL [facility] Comment: The ADA recommends reporting an estimated Average Glucose (eAG) with all Hemoglobin A1c results using the equation derived from a study of 507 normal and diabetic adults. Minority populations were underrepresented and children were not included. (Diabetes Care 31:6544-9080, 2008). The eAG is not equivalent to a fasting glucose. Blood 09/12/2024 6:17 AM MANAGER VISUAL 09/12/2024 6:46 AM MANAGER VISUAL Poncho Enriquez DO LAB BLOOD ORDERABLES Final Res ult [facility] [address] [facility] [place] [address] * Basic metabolic panel (09/12/2024 6:17 AM MANAGER VISUAL) Pathologist [facility] Sodium 140 135 - 145 mmol/L Potassium, pl 4.5 3.3 - 4.9 mmol/L [facility] Chloride 104 97 - 110 mmol/L [facility] CO2 28 22 - 32 mmol/L [facility] Anion gap 8 2 - 15 mmol/L [facility] BUN 14 6 - 25 mg/dL [facility] Creatinine 0.73 0.60 - 1.10 mg/dL [facility] Glucose 97 70 - 199 mg/dL [facility] Comment: Interpretive Data Fasting glucose >/= 126 mg/dl is diagnostic for diabetes. Fasting is defined as no caloric intake for at least 8 hours. Fasting glucose between 100 mg/dl to 125 mg/dl is diagnostic of prediabetes. In a patient with classic symptoms of hyperglycemia or hyperglycemic crisis, a random glucose >/= 200 mg/dl is diagnostic for diabetes. In the absence of unequivocal hyperglycemia, results should be confirmed by repeat testing. The classification and Diagnosis of Diabetes Diabetes Care 2021; 46: S19-S40. Current interpretive data was last revised 2022. Calcium 9.1 8.5 - 10.3 mg/dL [facility] Blood 09/12/2024 6:17 AM MANAGER VISUAL 09/12/2024 6:46 AM MANAGER VISUAL Lore Richardson DC LAB BLOOD ORDERABLES Final Result Performing Organization Address [facility] de Phone Number [address] [address] * POCT glucose (09/11/2024 8:17 PM MANAGER VISUAL) [facility] Glucose, POC 157 70 - 199 mg/dL Glucose comment 1 Use This Result [facility] Blood 09/11/2024 8:17 PM MANAGER VISUAL 09/11/2024 8:17 PM MANAGER VISUAL Poncho Enriquez [facility] POCT ORDERABLES - DEVICE F inal Result Performing Organization Address [facility] de Phone Number [address] [place] [address] * (ABNORMAL) Vancomycin level trough (09/11/2024 7:15 PM MANAGER VISUAL) [facility] Vancomycin trough <4.0(L) 10.0 - 20.0 mcg/mL Blood 09/11/2024 7:15 PM MANAGER VISUAL 09/11/2024 7:39 PM MANAGER VISUAL Poncho Endgameoctaviaert LAB BLOOD ORDERABLES Final Res ult Performing Organization Address [facility] de Phone Number [address] [address] * eGFR (09/11/2024 6:42 PM MANAGER VISUAL) [facility] eGFR >90 >=60 mL/min/1. 73 m2 Comment: Interpretive Data Reference Interval Normal >/= 90 mL/min/1.73m2 Mildly decreased* 60 - 89 mL/min/1.73m2 Mildly to moderately decreased 45 - 59 mL/min/1.73m2 Moderately to severely decreased 30 - 44 mL/min/1.73m2 Severely decreased 15 - 29 mL/min/1.73m2 Kidney Failure < 15 mL/min/1.73m2 *Relative to young adult level Estimated glomerular filtration rate is determined by the 2020 CKD-EPI equation recommended by the National Kidney Foundation (A Unifying Approach to GFR Estimation: Recommendations of the NKF-ASK Task Force on Reassessing the Inclusion of Race in Diagnosing Kidney Disease, JASN 2020). The CKD-EPI equation should not be used for patients with unstable renal function and has not been validated in children and those over 70. Current interpretive data was last reviewed 2021. Blood 09/11/2024 6:42 PM MANAGER VISUAL 09/11/2024 7:11 PM MANAGER VISUAL us Romi Rodriguez NP LAB BLOOD ORDERABLES Final Re sult [place] [id number] [facility] [place] [address] * Differential, auto (09/11/2024 6:42 PM MANAGER VISUAL) Neutrophil abs 4.7 1.5 - 6.5 K/cumm Imm gran abs 0.0 0.0 - 0.1 K/cumm [facility] Lymphocyte abs 1.4 0.8 - 3.3 K/cumm [facility] Monocyte abs 0.6 0.2 - 0.8 K/cumm [facility] Eosinophil abs 0.2 0.0 - 0.5 K/cumm [facility] Basophil abs 0.1 0.0 - 0.1 K/cumm [facility] Neutrophil pct 67.2 % [facility] Comment: Interpretive Data Percent cell count reference ranges are not reported, since discordance with absolute values may lead to misinterpretation of CBC data. Current Interpretive Data was last revised on 2017. Imm gran pct 0.3 % [facility] Comment: Interpretive Data Percent cell count reference ranges are not reported, since discordance with absolute values may lead to misinterpretation of CBC data. Current Interpretive Data was last revised on 2017. Lymphocyte pct 19.4 % [facility] Comment: Interpretive Data Percent cell count reference ranges are not reported, since discordance with absolute values may lead to misinterpretation of CBC data. Current Interpretive Data was last revised on 2017. Monocyte pct 9.0 % [facility] Comment: Interpretive Data Percent cell count reference ranges are not reported, since discordance with absolute values may lead to misinterpretation of CBC data. Current Interpretive Data was last revised on 2017. Eosinophil pct 3.4 % [facility] Comment: Interpretive Data Percent cell count reference ranges are not reported, since discordance with absolute values may lead to misinterpretation of CBC data. Current Interpretive Data was last revised on 2017. Basophil pct 0.7 % [facility] Comment: Interpretive Data Percent cell count reference ranges are not reported, since discordance with absolute values may lead to misinterpretation of CBC data. Current Interpretive Data was last revised on 2017. Blood 09/11/2024 6:42 PM MANAGER VISUAL 09/11/2024 7:11 PM MANAGER VISUAL Romi Rodriguez NP LAB BLOOD ORDERABLES Final Re sult [facility] [address] [facility] [place] [address] * (ABNORMAL) CBC with auto differential (09/11/2024 6:42 PM MANAGER VISUAL) WBC 7.0 3.8 - 9.9 K/cumm Hgb 12.9 11.9 - 15.5 g/dL [facility] Hct 41.9 35.6 - 45.5 % [facility] Plt 136(L) 150 - 400 K/cumm [facility] MPV 12.6(H) 9.1 - 12.3 fL [facility] RBC 4.50 3.90 - 5.20 M/cumm [facility] MCV 93.1 81.3 - 96.4 fL [facility] MCH 28.7 27.1 - 33.3 pg [facility] MCHC 30.8(L) 32.3 - 35.7 g/dL [facility] RDW CV 15.3(H) 11.1 - 14.9 % [facility] RDW SD 52.0(H) 35.7 - 48.1 fL [facility] NRBC abs 0.00 0.00 - 0.01 K/cumm [facility] Blood 09/11/2024 6:42 PM MANAGER VISUAL 09/11/2024 7:11 PM MANAGER VISUAL [facility] BLOOD ORDERABLES Final Re sult Performing Organization Address [facility] de Phone Number [address] [place] [address] * Basic metabolic panel (09/11/2024 6:42 PM MANAGER VISUAL) [facility] Sodium 141 135 - 145 mmol/L Potassium, pl 4.3 3.3 - 4.9 mmol/L [facility] Chloride 105 97 - 110 mmol/L [facility] CO2 27 22 - 32 mmol/L [facility] Anion gap 9 2 - 15 mmol/L [facility] BUN 13 6 - 25 mg/dL [facility] Creatinine 0.64 0.60 - 1.10 mg/dL [facility] Glucose 131 70 - 199 mg/dL [facility] Comment: Interpretive Data Fasting glucose >/= 126 mg/dl is diagnostic for diabetes. Fasting is defined as no caloric intake for at least 8 hours. Fasting glucose between 100 mg/dl to 125 mg/dl is diagnostic of prediabetes. In a patient with classic symptoms of hyperglycemia or hyperglycemic crisis, a random glucose >/= 200 mg/dl is diagnostic for diabetes. In the absence of unequivocal hyperglycemia, results should be confirmed by repeat testing. The classification and Diagnosis of Diabetes Diabetes Care 2021; 46: S19-S40. Current interpretive data was last revised 2022. Calcium 8.7 8.5 - 10.3 mg/dL [facility] Blood 09/11/2024 6:42 PM MANAGER VISUAL 09/11/2024 7:11 PM MANAGER VISUAL Neo PLMletty [facility] LAB BLOOD ORDERABLES Final Re sult Performing Organization Address [facility] Co de Phone Number [address] [place] [place] [address] * POCT glucose (09/11/2024 6:04 PM MANAGER VISUAL) Glucose, POC 105 70 - 199 mg/dL Glucose comment 1 Use This Result KEN Blood 09/11/2024 6:04 PM MANAGER VISUAL 09/11/2024 6:04 PM MANAGER VISUAL Poncho Enriquez LAB POCT ORDERABLES - DEVICE F inal Result Performing Organization Address City/[facility]/ZIP Co de Phone Number KEN [address] [facility] [place] [address] * FL Fluoroscopy < 1 Hour (09/11/2024 4:00 PM MANAGER VISUAL) Narrative MARLON_GLORYB_MHE - 09/11/2024 5:59 PM MANAGER VISUAL The images from this study are not interpreted by Radiology. Please refer to the physician's procedure / OR operative note. Poncho Willeyad DO IMG FLUOROSCOPY PROCEDURES Fin al Result Performing Organization Address [facility] Co de Phone Number [email or web address] * (ABNORMAL) Aerobic and anaerobic culture and gram stain Abscess Toe, fifth, right (09/11/2024 3:45 PM MANAGER VISUAL) Pathologist [facility] Direct Specimen Exam Stain: No polymorphonuclear leukocytes seen. No organisms seen. Comment:Testing performed by : [facility], [address] [place]., [address] Report Final Report: Few Mixed anaerobic microorganisms (.) KEN Comment:Testing performed by : [facility], [address] [place]., [address] Organism MIXED ANAEROBIC MICROORGANISMS KEN Abscess (Toe, fifth, right) 09/11/2024 3:45 PM MANAGER VISUAL 09/11/2024 5:50 PM MANAGER VISUAL Narrative KEN HOLDER - 09/14/2024 12:17 PM MANAGER VISUAL Fifth proximal phalanx swab #2 for culture Testing performed by [facility] ([phone]) Specimens submitted from normally sterile body sites will have all bacterial morphotypes identified. Specimens that contain grossly mixed jacob and/or are from body sites that are not normally sterile will be examined for Staphylococcus aureus, Pseudomonas aeruginosa, beta-hemolytic strep, vancomycin-resistant Enterococcus, Bacteroides, Parabacteroides, Clostridium perfringens and fungus. If any of these are isolated, the organism will be reported. Current interpretive data was last revised on 2019. Poncho Enel OGK-5 LAB MICROBIOLOGY - GENERAL ORD ERABLES Final Result KEN [address] [facility] [place] [address] * (ABNORMAL) Aerobic and anaerobic culture and gram stain Abscess Toe, fifth, right (09/11/2024 3:44 PM MANAGER VISUAL) Direct Specimen Exam Stain: Moderate polymorphonuclear leukocytes seen. No organisms seen. Comment:Testing performed by : [facility], [address] [place]., [address] Report Final Report: Few Mixed anaerobic microorganisms (.) KEN Comment:Testing performed by : [facility], [address] [place]., [address] Organism MIXED ANAEROBIC MICROORGANISMS KEN Abscess (Toe, fifth, right) 09/11/2024 3:44 PM MANAGER VISUAL 09/11/2024 5:49 PM MANAGER VISUAL Narrative KEN - 09/14/2024 12:17 PM MANAGER VISUAL Fifth proximal phalanx swab #1 for culture Testing performed by [facility] ([phone]) Specimens submitted from normally sterile body sites will have all bacterial morphotypes identified. Specimens that contain grossly mixed jacob and/or are from body sites that are not normally sterile will be examined for Staphylococcus aureus, Pseudomonas aeruginosa, beta-hemolytic strep, vancomycin-resistant Enterococcus, Bacteroides, Parabacteroides, Clostridium perfringens and fungus. If any of these are isolated, the organism will be reported. Current interpretive data was last revised on 2019. Poncho [facility] LAB MICROBIOLOGY - GENERAL ORD ERABLES Final Result Performing Organization Address City/[facility]/ZIP Co de Phone Number KEN [address] [facility] [place] [address] * (ABNORMAL) Tissue aerobic and anaerobic culture and gram stain Bone Toe, fifth, right (09/11/2024 3:39 PM MANAGER VISUAL) Direct Specimen Exam Stain: No polymorphonuclear leukocytes seen. No organisms seen. Comment:Testing performed by : [facility], [address] [place]., [address] Report Final Report: Few Mixed aerobic and anaerobic microorganisms (.) KEN Comment:Testing performed by : [facility], [address] [place]., [address] Organism MIXED AEROBIC AND ANAEROBIC MICROORGANISMS KEN Bone (Toe, fifth, right) 09/11/2024 3:39 PM MANAGER VISUAL 09/11/2024 5:52 PM MANAGER VISUAL Narrative KEN - 09/23/2024 3:27 PM MANAGER VISUAL Fifth proximal biopsy phalanx for bone culture Testing performed by [facility] ([phone]) Specimens submitted from normally sterile body sites will have all bacterial morphotypes identified. Specimens that contain grossly mixed jacob and/or are from body sites that are not normally sterile will be examined for Staphylococcus aureus, Pseudomonas aeruginosa, beta-hemolytic strep, vancomycin-resistant Enterococcus, Bacteroides, Parabacteroides, Clostridium perfringens and fungus. If any of these are isolated, the organism will be reported. Current interpretive data was last revised on 2019. Poncho [facility] LAB MICROBIOLOGY - GENERAL ORD ERABLES Final Result Performing Organization Address City/[facility] Co de Phone Number KEN [facility] [place] [address] * Colonoscopy (05/16/2024 10:08 AM CDT) Anatomical Region Laterality Modality Other Narrative Procedure Note Rodger Tripp MD - 05/16/2024 10:08 AM CDT ENDOSCOPY LAB Patient Name: Kendra Flores Procedure Date: 05/16/2024 10:08 AM Date of : 1950 Admit Type: Outpatient Age: 73 Gender: Female Attending MD: Rodger Tripp M.D. Room: [facility] ENDOSCOPY ROOM 04 Note Status: Finalized Procedure: Colonoscopy Indications: Screening for colorectal malignant neoplasm, Last colonoscopy: August 2016 Providers: Rodger Tripp M.D. Referring MD: Tony Morgan M.D. Medicines: Monitored Anesthesia Care Complications: No immediate complications. Estimated Blood Loss: Estimated blood loss: none. Procedure: Pre-Anesthesia Assessment: - Immediately prior to administration ofmedications, the patient was re-assessed for adequacy to receive sedatives. The benefits, risks and alternatives of theprocedure and sedation were discussed and informed consentwas obtained. All questions were answered. Please referto the signed informed consent document in the medical record. The scope was passed under direct vision.The [id number] was introduced through the anusand advanced to the cecum, identified by appendiceal orifice and ileocecal valve. The colonoscopy was performed without difficulty. The patient tolerated the procedure well. The quality of the bowel preparation was evaluated using the BBPS (BostonBowel Preparation Scale) with scores of: Right Colon = 3, Transverse Colon = 3 and Left Colon = 3 (entiremucosa seen well with no residual staining, smallfragments of stool or opaque liquid). The total BBPS score equals 9. Bowel prep was administered using a split dose. Findings: The perianal and digital rectal examinations were normal. Multiple small and large-mouthed diverticula were found in thesigmoid colon. The exam was otherwise without abnormality on direct and retroflexion views. Impression: - Diverticulosis in the sigmoid colon. - The examination was otherwise normal on directand retroflexion views. - No specimens collected. Recommendation: - No repeat colonoscopy due to age. - Return to primary care physician as previously scheduled. - . Attending Participation: I personally performed the entire procedure. Electronically signed by Rodger Tripp MD Rodger Tripp M.D. 05/16/2024 10:41:57 AM Number of Addenda: 0 Note Initiated On: 05/16/2024 10:08 AM Rodger Tripp MD ENDOSCOPY PROCEDUR ES Final Result from Last 3 Months or Most Recently Relevant to Health Maintenance Insurance [facility] UHC MEDICARE ADVANTAGE [facility] Advance Directives For more information, please contact: [phone] Documents on File Type Date Recorded Patient Baffle Mounter Expl anation ADVANCE DIRECTIVE 11/07/2011 12:00 AM POWER OF SORTING SUPERVISOR FINANCIAL/MEDICAL * Full Code (Latest Code Status on File) Date Activated Date Inactivated Comments 09/11/2024 6:16 PM 09/17/2024 7:51 PM * Full Code Date Activated Date Inactivated Comments 05/16/2024 9:32 AM 05/16/2024 3:46 PM Care Teams Round Boner Relationship Specialty Start Date End Date Gerardo Dixon DO [address] [address] PCP - General Internal Medicine 05/09/24 Sofia Roper MD Urologist Urology 10/30/18 Fabian Lizama MD Referring Physician Pulmonary Disease 04/01/20 Giorgi Beyer MD [address] [place] [address] Consulting Physician Cardiovascular Disease 08/30/24 Lore Richardson PA [address] [place] [address] Orthopedic Surgery 09/11/24
--- OUTSIDE RECORDS SUMMARY | 2024-11-30 15:13 | XMS_ITS ---
Author Organization [facility] Address [address] [place] [address] Care Team Providers Care Family And Consumer Science Professor Name Role Phone Sofia Roper MD Unavailable [phone] Fabian Lizama MD Unavailable [phone] Gerardo Dixon DO Primary Care Provider [phone] Giorgi Beyer MD Unavailable [phone] Lore Richardson Unavailable [phone] Active Problems Problem Noted Date Diagnosed Date S/P foot surgery, right 09/26/2024 Overview (09/26/2024): Incision and debridement osteomyelitis right 5th metatarsal head with bone biopsy, 09/11/2024, Dr. Enriquez Assessment & Plan (10/11/2024 1:35 PM DYNAMICIST): Patient is doing well overall. Patient will [...] plan. Assessment & Plan (09/26/2024 3:46 PM DYNAMICIST): Patient is doing well overall. The incision [...] (08/28/2021): Added automatically from request for surgery [id number] History of breast cancer in female 09/01/2020 Overview (09/01/2020): Added automatically from request for surgery [id number] Antinuclear antibody (NAWAF) positive 03/01/2019 Mass of [...] syndrome 09/12/2014 Overview (06/18/2024): on CPAP, [facility] Cephalalgia 09/12/2014 Benign hypertension 08/09/2014 Asthma 08/09/2014 [...] urine 06/08/2007 Stress incontinence of urine 06/08/2007 Current Treatment and Therapy Plans No current plan information found. Past Treatment and Therapy Plans No past plan information found. Lifetime Dose Tracking * Chemical Lifetime Dose Automatic Entry Manual Entr y Fluoro Time 0.154 minutes 0.154 minutes 0 minutes Air kerma at the reference point (Ka,r) 0.236 mGy 0 .236 mGy 0 mGy DLP 5,522 mGycm 5,522 mGycm 0 mGycm
--- OUTSIDE RECORDS SUMMARY | 2024-11-30 15:13 | XMS_ITS | Clinical Summary ---
Author Organization [facility] Administrative Offices Address [address] [place] [address] Care Team Providers Care Dressage Judge Name Role Phone Tony Morgan DO Primary Care Provider [phone] Social History Tobacco Use Types Packs/Day Years Used Date Smoking Tobacco: Never Assessed Comments Unknown Sex and Gender Information Value Date Recorded Sex Assigned at Not on file Legal Sex Female 9:46 AM CDT Gender Identity Not on file Sexual Orientation Not on file Plan of Treatment Health Maintenance Due Date Last Done Comments DTAP/TDAP/TD VACCINES (1 - Tdap) 1969 PNEUMOCOCCAL VACCINE 50+ YEARS (1 of 2 - PCV) 10/13/18 70 BREAST CANCER SCREENING 1990 COLORECTAL SCREENING 10/14/1995 Colorectal Cancer Screening 10/14/1995 FIT-DNA Q 3 years 10/14/1995 FIT/FOBT Q 1 year 10/14/1995 Flex Sig/CT Colonography Q 5 years 10/14/1995 ZOSTER VACCINE (1 of 2) 2000 RSV VACCINE (60+ or ) (1 - Risk 60-74 years 1-dose series) 2010 OSTEOPOROSIS SCREENING 10/14/2015 INFLUENZA VACCINE (#1) 2024 Insurance [facility] [id number] Care Teams Dressage Judge Relationship Specialty Start Date End Date Tony Morgan DO [address] [facility] [address] [place] [address] PCP - General Internal Medicine 04/18/18
--- OUTSIDE RECORDS SUMMARY | 2024-11-30 15:13 | XMS_ITS | Referral Summary ---
Author Organization [facility] Address [address] [place] [address] Care Team Providers Care Registration Representative Name Role Phone Sofia Roper MD Unavailable [phone] Fabian Lizama MD Unavailable [phone] Gerardo Dixon DO Primary Care Provider [phone] Giorgi Beyer MD Unavailable [phone] Lore Richardson Unavailable [phone] Encounters Date Type Department Care Team Description 11/28/2024 11:00 AM CDT Home Care Visit [address] [place] [address] Chana Morales RN SN HOME VISIT 11/26/2024 Home Care Visit [address] [place] [address] Chana Morales RN TELEPHONE ENCOUNTER 11/24/2024 2:00 PM CDT Home Care Visit [address] [place] [address] Chana Morales RN SN HOME VISIT 11/21/2024 9:00 AM CDT Home Care Visit [address] [place] [address] Beulah Littlejohn LPN SN HOME VISIT 11/19/2024 11:00 AM CDT Home Care Visit [address] [place] [address] Chana Morales RN SN HOME VISIT 11/19/2024 1:45 PM CDT Office Visit [facility] Orthopedics and Sports Medicine [address] [place] [address] [address] [place] [address] Poncho Enriquez DO S/P excisional debridement (Primary Dx); S/P foot surgery, right 11/15/2024 Plan of Care Documentation [address] [address] [address] [place] [address] 11/16/2024 3:36 PM CDT - 11/16/2024 11:59 PM CDT Hospital Encounter [facility] [address] [place] [address] Osteomyelitis of ankle or foot, right, acute (HCC) Discharge Disposition: Discharge to home or self care 11/15/2024 12:00 PM CDT Home Care Visit [address] [place] [address] Chana Morales RN SN OASIS RECERTIFICATION 11/13/2024 Telephone [facility] Orthopedics and Sports Medicine [address] [place] [address] [address] [place] [address] Poncho Enriquez DO status of orthodics 11/13/2024 3:15 PM CDT Orders Only [facility] Medical Office Building 2 Wound Care [address] [facility] [address] [place] [address] 11/12/2024 10:00 AM CDT Home Care Visit [address] [place] [address] Chana Morales RN SN HOME VISIT 11/09/2024 Orders Only [facility] Infectious Disease [facility] [address] [place] [address] Miki Rodriguez MD 11/09/2024 1:00 PM CDT Home Care Visit [address] [place] [address] Chana Morales RN SN HOME VISIT 11/07/2024 12:00 PM CDT Home Care Visit [address] [place] [address] Chana Morales RN SN HOME VISIT 11/05/2024 1:00 PM CDT Home Care Visit [address] [place] [address] Beulah Littlejohn LPN SN HOME VISIT 11/02/2024 11:00 AM CDT Home Care Visit [address] [place] [address] Beulah Littlejohn LPN SN HOME VISIT 11/01/2024 3:00 PM CDT Office Visit [facility] Infectious Disease [address] [facility] [address] [place] [phone] Miki Rodriguez MD Osteomyelitis of ankle or foot, right, acute (HCC) (Primary Dx) 10/31/2024 10:00 AM CDT Home Care Visit [address] [address] [place] [address] Chana Morales RN SN HOME VISIT 10/30/2024 8:15 AM CDT Orders Only [facility] Medical Office Building 2 Wound Care [address] [facility] [address] [place] [address] S/P excisional debridement 10/29/2024 Telephone [facility] Orthopedics and Sports Medicine [address] [facility] [address] [place] [phone] Poncho Enriquez DO PA for Orthotics 10/26/2024 1:00 PM CDT Home Care Visit [address] [place] [address] Chana Morales RN SN HOME VISIT 10/25/2024 1:45 PM CDT Office Visit [facility]opedics [facility] Sports Medicine [address] [place] [address] [address] [place] [address] Poncho Enriquez DO S/P excisional debridement (Primary Dx) 10/24/2024 Telephone [facility] Pulmonology [address] [facility] [address] [place] [phone] Esme Em RN 10/22/2024 12:11 PM CDT - 10/22/2024 11:59 PM CDT Hospital Encounter [address] [address] Discharge Disposition: Discharge to home or self care 10/22/2024 11:00 AM CDT Home Care Visit [address] [address] Chana Morales RN SN HOME VISIT 10/19/2024 Orders Only [facility] Home Care Services [address] [place] [phone] Sakina Mccullough, [facility] 10/15/2024 3:30 PM CDT - 10/15/2024 11:59 PM CDT Hospital Encounter [address] [address] Discharge Disposition: Discharge to home or self care 10/15/2024 3:00 PM CDT Home Care Visit [address] [place] [address] Rona Penaloza RN SN HOME VISIT 10/14/2024 Orders Only [facility] Home Care Services [address] [place] [address] [place] [address] Anjelica Pacheco, [facility] 10/11/2024 1:00 PM SECURITY SYSTEMS INTEGRATOR Office Visit [facility] [address] [place] [address] [address] [place] [phone] Lore Richardson PA S/P foot surgery, right (Primary Dx); Osteomyelitis of ankle or foot, right, acute (HCC) 10/09/2024 11:30 AM SECURITY SYSTEMS INTEGRATOR - 10/09/2024 11:59 PM SECURITY SYSTEMS INTEGRATOR Hospital Encounter [address] [address] Discharge Disposition: Discharge to home or self care 10/09/2024 10:00 AM SECURITY SYSTEMS INTEGRATOR Home Care Visit [address] [place] [address] Rona Penaloza, MICHAEL SN HOME VISIT 10/05/2024 Orders Only [facility] Infectious Disease [address] [place] [phone] Miki Rodriguez MD 10/04/2024 Orders Only [facility] Medical [facility] Infectious Disease [address] [place] [phone] Miki Rodriguez MD 10/02/2024 12:22 PM SECURITY SYSTEMS INTEGRATOR - 10/02/2024 11:59 PM SECURITY SYSTEMS INTEGRATOR Hospital Encounter [address] [address] Discharge Disposition: Discharge to home or self care 10/02/2024 12:00 PM SECURITY SYSTEMS INTEGRATOR Home Care Visit [address] [address] [place] [address] Chana Morales RN SN HOME VISIT 09/28/2024 3:21 PM SECURITY SYSTEMS INTEGRATOR - 09/28/2024 8:55 PM SECURITY SYSTEMS INTEGRATOR Emergency [address] [address] Discharge Disposition: Left without being seen 09/26/2024 Home Care Visit [address] [place] [address] Rona Penaloza, RN CASE COMMUNICATION 09/26/2024 Home Care Visit [address] [place] [address] Brittnee Rai, RN SN TRIAGE ENCOUNTER 09/26/2024 1:15 PM SECURITY SYSTEMS INTEGRATOR Office Visit [facility] [address] [facility] [address] [place] [address] Lore Richardson PA Osteomyelitis of ankle or foot, right, acute (HCC) (Primary Dx); S/P foot surgery, right 09/25/2024 9:10 AM SECURITY SYSTEMS INTEGRATOR - 09/25/2024 11:59 PM SECURITY SYSTEMS INTEGRATOR Hospital Encounter [address] [address] Discharge Disposition: Discharge to home or self care 09/25/2024 9:30 AM SECURITY SYSTEMS INTEGRATOR Home Care Visit [address] [address] [address] [place] [address] Kayla Kan RN SN HOME VISIT 09/24/2024 Telephone [facility] Pulmonology [address] [facility] [address] [place] [phone] Miki Rodriguez MD Medication Reaction (Left voicemail, Med recation) 09/18/2024 11:20 AM SECURITY SYSTEMS INTEGRATOR - 09/18/2024 11:59 PM SECURITY SYSTEMS INTEGRATOR Hospital Encounter [address] [address] Discharge Disposition: Discharge to home or self care 09/18/2024 Plan of Care Documentation [address] [place] [address] 09/18/2024 10:30 AM SECURITY SYSTEMS INTEGRATOR Home Care Visit [address] [address] [place] [address] Kayla Kan RN SN OASIS START OF CARE 09/17/2024 Orders Only [facility] Care Services [address] [place] [address] [place] [phone] Jacob Vieira RPh 09/11/2024 11:10 AM SECURITY SYSTEMS INTEGRATOR - 09/17/2024 3:45 PM SECURITY SYSTEMS INTEGRATOR Hospital Encounter [facility] [address] [place] [address] Poncho Enriquez, Other acute osteomyelitis of right foot (HCC) (Primary Dx); Osteomyelitis of right foot, unspecified type (HCC); Closed displaced fracture of fifth metatarsal bone of right foot, initial encounter; Osteomyelitis of ankle or foot, right, acute (HCC); S/P excisional debridement Discharge Disposition: Discharge to home or self care 09/11/2024 2:55 PM SECURITY SYSTEMS INTEGRATOR - 09/11/2024 4:50 PM SECURITY SYSTEMS INTEGRATOR Surgery [facility] [place] [address] [place] [address] Poncho Enriquez DO INCISION AND DEBRIDEMENT OSTEOMYELITIS RIGHT FOOT WITH BONE BIOPSY 09/11/2024 3:06 PM SECURITY SYSTEMS INTEGRATOR Anesthesia Event [facility] [place] [address] [place] [address] Ildefonso Wooten MD Taylor-White, Radha Rg TEST TECHNICIAN from Last 3 Months Allergies Active Allergy Reactions Criticality Noted Date [...] prevent vitamin deficiency Active vit A,C and Q-lxdvzz-pkhbq als (OCUVITE with LUTEIN) 300 mcg-200 mg-27 [...] Enriquez Assessment & Plan (10/11/2024 1:35 PM SECURITY SYSTEMS INTEGRATOR): Patient is doing well overall. Patient will [...] plan. Assessment & Plan (09/26/2024 3:46 PM SECURITY SYSTEMS INTEGRATOR): Patient is doing well overall. The incision [...] (08/28/2021): Added automatically from request for surgery [id number] History of breast cancer in female 09/01/2020 Overview (09/01/2020): Added automatically from request for surgery [id number] Antinuclear antibody (NAWAF) positive 03/01/2019 Mass of [...] urine 06/08/2007 Stress incontinence of urine 06/08/2007 Immunizations Immunization Administration Dates Next Due Influenza, Quadrivalent, Spl it, Preservative Free, Intramuscular 05/13/2015 Influenza, Trivalent, High D ose, Split, Preservative Free, Intramuscular 07/09/2016 Td, adsorbed 10/14/1994 Social History Tobacco Use Types Packs/Day Years [...] materials from doctor or pharmacy Never 09/18/2024 [facility] Utilities Answer Date Recorded In the past 12 months has th e [employer], gas, oil, or water [employer] threatened to shut off services in your home? No 09/12/2024 Social Connection and Isolation Panel [NHANES] A nswer Date Recorded In a typical week, how many times do you talk on the phone with family, friends, or neighbors? Three times a week 09/12/19 25 How often do you get togethe r with friends or relatives? Three times a week 09/12/2024 How often do you attend chur ch or mu-ism services? 1 to 4 times per year 09/12/2024 Do you belong to any clubs o r organizations such as bahai groups, unions, fraternal or athletic groups, or [...] any time in the past 12 m [facility], were you homeless or living in a senior care (including now)? No 09/12/2024 Personal Safety Answer Date Recorded Have you ever been in or are you currently in a harmful physical or emotional relationship or is someone making you feel afraid or unsafe? Denies 09/28/2024 Comments No Sex and Gender Information Value Date Recorded Sex Assigned at Not on file Legal Sex Female 2:11 AM SECURITY SYSTEMS INTEGRATOR Gender Identity Female 08/26/2021 10:29 AM SECURITY SYSTEMS INTEGRATOR Sexual Orientation Not on file Last Filed Vital Signs Vital Sign Reading [...] 11/01/2024 3:24 PM CDT Plan of Treatment Not on file Medical Devices Implanted Type Area Director Of Services Device Identifier Shelf Expiration Date Model / Serial / Lot [employer] 68-600 Natrelle 15cm Style 68mp Anterior Diaphragm Valve P5cm Moderate - [id number] - [id number] Implanted:Qty: 1 on 11/27/2020 by Dada Eid MD at [facility] Breast Right: Breast [employer] [id number] 04/20/2024 68-600 / [id number] / [id number] [employer] 68-600 Natrelle 15cm Style 68mp Anterior Diaphragm Valve P5cm Moderate - [id number] - [id number] Implanted:Qty: 1 on 11/27/2020 by Dada Eid MD at [facility] Breast Left: Breast [employer] [id number] 06/11/2024 68-600 / [id number] / [id number] [employer] Natrelle 14.7-15cm Style 68hp Round Smooth Anterior Diaphragm 68hp-800 - [id number] - [id number] Implanted:Qty: 1 on 12/21/2021 by Dada Eid MD at [facility] Breast Left: Breast [employer] [id number] 05/15/2023 [facility] / [id number] / [employer] [id number] Alloderm Select [id number] Allograft Regenerative Freeze Dried - S0 - [id number] Implanted:Qty: 1 on 11/27/2020 by Dada Eid MD at [facility] Other - see comments Right: Breast [employer] 07/07/2022 [id number] / 0 / [id number] Description:allorderm, [employer] [id number] Alloderm Select [id number] Allograft Regenerative Freeze Dried - S0 - [id number] Implanted:Qty: 1 on 11/27/2020 by Dada Eid MD at [facility] Other - see comments Left: Breast [employer] 07/07/2022 [id number] / 0 / [id number] Description:alloderm Lumbar Spine Fusion Hardware Spine Lumbar Pin Bilatera l: Foot Total Bilatera l: Knee Bilateral Total Knee Arthroplasty- Implanted:04/23 (Quantity not on file) Knee Biocomposites Stimulan Rapid Cure Kit Paste Uppers Edge Burnisher 5cc 12.5cc Bone Void 620-005 - [id number] Implanted:Qty: 1 on 09/11/2024 by Poncho Enriquez DO at [facility] Bi[employer]ites 04/07/2027 620-005 / / [id number] Explanted Type Area Director Of Services Device Identifier Shelf Expiration Date Model / Serial / Lot Saline Breast Implant Explanted:Qty : 1 on 11/27/2020 at [facility] Breast Left: Breast [employer] / 0 / Salline Breast Implant Explanted:Qty : 1 on 11/27/2020 by Dada Eid MD at [facility] Breast Right: Breast [employer] / 0 / 0 Allergan [id number] Explanted:Qty : 1 on 12/21/2021 at [facility] Breast Left: Breast WiN MS [id number] / / [id number] Procedures Procedure Name Priority Date/Time Associated Diagnosis [...] PM CDT EGFR Routine 10/09/2024 11:30 AM SECURITY SYSTEMS INTEGRATOR DIFFERENTIAL AUTO Routine 10/09/2024 11: 30 AM SECURITY SYSTEMS INTEGRATOR ERYTHROCYTE SEDIMENTATION RATE Routine 10/09/2024 11:30 AM SECURITY SYSTEMS INTEGRATOR CBC WITH AUTO DIFFERENTIAL Routine 10/09/2024 11:30 AM SECURITY SYSTEMS INTEGRATOR COMPREHENSIVE METABOLIC PANEL Routine 10/09/2024 11:30 AM SECURITY SYSTEMS INTEGRATOR EGFR Routine 10/02/2024 12:22 PM SECURITY SYSTEMS INTEGRATOR DIFFERENTIAL AUTO Routine 10/02/2024 12: 22 PM SECURITY SYSTEMS INTEGRATOR ERYTHROCYTE SEDIMENTATION RATE Routine 10/02/2024 12:22 PM SECURITY SYSTEMS INTEGRATOR CBC WITH AUTO DIFFERENTIAL Routine 10/02/2024 12:22 PM SECURITY SYSTEMS INTEGRATOR COMPREHENSIVE METABOLIC PANEL Routine 10/02/2024 12:22 PM SECURITY SYSTEMS INTEGRATOR URINALYSIS, MICROSCOPIC ONLY STAT 09/28/2024 4:01 PM SECURITY SYSTEMS INTEGRATOR URINALYSIS AND REFLEX TO MICROSCOPIC AND CULTURE STAT 09/28/2024 4:01 PM SECURITY SYSTEMS INTEGRATOR MAGNESIUM STAT 09/28/2024 4:00 PM SECURITY SYSTEMS INTEGRATOR PHOSPHORUS STAT 09/28/2024 4:00 PM SECURITY SYSTEMS INTEGRATOR EGFR STAT 09/28/2024 4:00 PM SECURITY SYSTEMS INTEGRATOR DIFFERENTIAL AUTO STAT 09/28/2024 4:0 0 PM SECURITY SYSTEMS INTEGRATOR COMPREHENSIVE METABOLIC PANEL STAT 09/28/2024 4:00 PM SECURITY SYSTEMS INTEGRATOR CBC WITH AUTO DIFFERENTIAL STAT 09/28/2024 4:00 PM SECURITY SYSTEMS INTEGRATOR ECG 12-LEAD STAT 09/28/2024 3:47 PM SECURITY SYSTEMS INTEGRATOR EGFR Routine 09/25/2024 9:10 AM SECURITY SYSTEMS INTEGRATOR DIFFERENTIAL AUTO Routine 09/25/2024 9:1 0 AM SECURITY SYSTEMS INTEGRATOR ERYTHROCYTE SEDIMENTATION RATE Routine 09/25/2024 9:10 AM SECURITY SYSTEMS INTEGRATOR CBC WITH AUTO DIFFERENTIAL Routine 09/25/2024 9:10 AM SECURITY SYSTEMS INTEGRATOR GLUCOSE, RANDOM (OUTREACH) Routine 09/25/2024 9:10 AM SECURITY SYSTEMS INTEGRATOR COMPREHENSIVE METABOLIC PANEL WITHOUT GLUCOSE (OUTREACH) Routine 09/25/2024 9:10 AM SECURITY SYSTEMS INTEGRATOR EGFR Routine 09/18/2024 11:20 AM SECURITY SYSTEMS INTEGRATOR DIFFERENTIAL AUTO Routine 09/18/2024 11: 20 AM SECURITY SYSTEMS INTEGRATOR ERYTHROCYTE SEDIMENTATION RATE Routine 09/18/2024 11:20 AM SECURITY SYSTEMS INTEGRATOR CBC WITH AUTO DIFFERENTIAL Routine 09/18/2024 11:20 AM SECURITY SYSTEMS INTEGRATOR GLUCOSE, RANDOM (OUTREACH) Routine 09/18/2024 11:20 AM SECURITY SYSTEMS INTEGRATOR COMPREHENSIVE METABOLIC PANEL WITHOUT GLUCOSE (OUTREACH) Routine 09/18/2024 11:20 AM SECURITY SYSTEMS INTEGRATOR EGFR Routine 09/17/2024 3:49 AM SECURITY SYSTEMS INTEGRATOR HEMOGLOBIN AND HEMATOCRIT Routine 09/17/2024 3:49 AM SECURITY SYSTEMS INTEGRATOR BASIC METABOLIC PANEL Routine 09/17/2024 3:49 AM SECURITY SYSTEMS INTEGRATOR EGFR Routine 09/16/2024 3:14 AM SECURITY SYSTEMS INTEGRATOR HEMOGLOBIN AND HEMATOCRIT Routine 09/16/2024 3:14 AM SECURITY SYSTEMS INTEGRATOR BASIC METABOLIC PANEL Routine 09/16/2024 3:14 AM SECURITY SYSTEMS INTEGRATOR EGFR Routine 09/15/2024 7:54 AM SECURITY SYSTEMS INTEGRATOR HEMOGLOBIN AND HEMATOCRIT Routine 09/15/2024 7:54 AM SECURITY SYSTEMS INTEGRATOR BASIC METABOLIC PANEL Routine 09/15/2024 7:54 AM SECURITY SYSTEMS INTEGRATOR EGFR Routine 09/14/2024 5:19 AM SECURITY SYSTEMS INTEGRATOR DIFFERENTIAL AUTO Routine 09/14/2024 5:1 9 AM SECURITY SYSTEMS INTEGRATOR CBC WITH AUTO DIFFERENTIAL Routine 09/14/2024 5:19 AM SECURITY SYSTEMS INTEGRATOR BASIC METABOLIC PANEL Routine 09/14/2024 5:19 AM SECURITY SYSTEMS INTEGRATOR EGFR Routine 09/13/2024 5:14 AM SECURITY SYSTEMS INTEGRATOR DIFFERENTIAL AUTO Routine 09/13/2024 5:1 4 AM SECURITY SYSTEMS INTEGRATOR COMPREHENSIVE METABOLIC PANEL Routine 09/13/2024 5:14 AM SECURITY SYSTEMS INTEGRATOR CBC WITH AUTO DIFFERENTIAL Routine 09/13/2024 5:14 AM SECURITY SYSTEMS INTEGRATOR ERYTHROCYTE SEDIMENTATION RATE Routine 09/13/2024 5:14 AM SECURITY SYSTEMS INTEGRATOR VANCOMYCIN LEVEL TROUGH Timed 09/13/2024 5:14 AM SECURITY SYSTEMS INTEGRATOR HEMOGLOBIN A1C Routine 09/12/2024 6:17 AM SECURITY SYSTEMS INTEGRATOR EGFR Routine 09/12/2024 6:17 AM SECURITY SYSTEMS INTEGRATOR HEMOGLOBIN AND HEMATOCRIT Routine 09/12/2024 6:17 AM SECURITY SYSTEMS INTEGRATOR BASIC METABOLIC PANEL Routine 09/12/2024 6:17 AM SECURITY SYSTEMS INTEGRATOR POCT GLUCOSE DEVICE Routine 09/11/2024 8 :17 PM SECURITY SYSTEMS INTEGRATOR VANCOMYCIN LEVEL TROUGH Timed 09/11/2024 7:15 PM SECURITY SYSTEMS INTEGRATOR EGFR STAT 09/11/2024 6:42 PM SECURITY SYSTEMS INTEGRATOR DIFFERENTIAL AUTO STAT 09/11/2024 6:4 2 PM SECURITY SYSTEMS INTEGRATOR BASIC METABOLIC PANEL STAT 09/11/2024 6:42 PM SECURITY SYSTEMS INTEGRATOR CBC WITH AUTO DIFFERENTIAL STAT 09/11/2024 6:42 PM SECURITY SYSTEMS INTEGRATOR POCT GLUCOSE DEVICE Routine 09/11/2024 6 :04 PM SECURITY SYSTEMS INTEGRATOR FL FLUOROSCOPY < 1 HOUR IP Routine 09/11/2024 4:00 PM SECURITY SYSTEMS INTEGRATOR AEROBIC AND ANAEROBIC CULTURE AND GRAM STAIN Routine 09/11/2024 3:45 PM SECURITY SYSTEMS INTEGRATOR AEROBIC AND ANAEROBIC CULTURE AND GRAM STAIN Routine 09/11/2024 3:44 PM SECURITY SYSTEMS INTEGRATOR TISSUE AEROBIC AND ANAEROBIC CULTURE AND GRAM STAIN Routine 09/11/2024 3:39 PM SECURITY SYSTEMS INTEGRATOR INCISION AND DRAINAGE - ANKLE 09/11/2024 3:06 PM SECURITY SYSTEMS INTEGRATOR Osteomyelitis of right foot, unspecified type (HCC) [...] by Carmen Escobedo M.D. SN: Report ID: [id number] Reading Location: [id number] Procedure Note Carmen Escobedo MD - 11/18/2024 [...] Carmen Escobedo M.D. SN: SN Report ID: [id number] Reading Location: [place] [address] Miki Rodriguez MD IM CT PROCEDURES Final Resu lt * (ABNORMAL) [...] ORDERABLES Final R esult Performing Organization Address City/[facility]/ZIP Co de Phone Number [facility] [employer] [address] [place] [address] * Erythrocyte sedimentation rate (11/16/2024 10:52 AM CDT) Erythrocyte sedimentation rate 29 < OR = 30 mm/h [facility] Blood 11/16/2024 10:5 2 AM CDT 11/16/2024 10:52 AM CDT Narrative [facility] - 11/16/2024 7:48 PM CDT FASTING:NO FASTING: NO us Miki Rodriguez MD LAB BLOOD ORDERABLES Final R esult [facility] [address] [place] [address] * Comprehensive metabolic panel (11/16/2024 10:52 AM CDT) Glucose 95 65 - 139 mg/dL [facility] Comment: Non-fasting reference interval BUN 19 7 - 25 mg/dL [facility] Creatinine 0.82 0.60 - 1.00 mg/dL Kimberley [facility] [employer] eGFR 75 > OR = 60 mL/min/1.7 3m2 Kimberley [facility] [employer] BUN/creat ratio SEE NOTE: 6 - 22 (calc) Kimber[facility] [employer] Comment: Not Reported: BUN and Creatinine are within reference range. Sodium 138 135 - 146 mmol/L Kimber[facility] [employer] Potassium, pl 4.2 3.5 - 5.3 mmol/L [facility] Chloride 100 98 - 110 mmol/L Kimberley [employer] CO2 32 20 - 32 mmol/L [employer] [facility] Bashir Calcium 9.3 8.6 - 10.4 mg/dL [facility] Protein, sr 6.8 6.1 - 8.1 g/dL Kimberley [employer] Albumin 4.1 3.6 - 5.1 g/dL Kimberley [facility] GLOBULIN 2.7 1.9 - 3.7 g/dL (calc) Kimberley [facility] [employer] Alb/glob ratio 1.5 1.0 - 2.5 (calc) [employer] [facility] Bilirubin, total 0.4 0.2 - 1.2 mg/dL Kimberley [facility] [employer] Alk phos 74 37 - 153 U/L [facility] AST 16 10 - 35 U/L [employer] ALT (SGPT) 20 6 - 29 U/L [employer] [facility] Blood 11/16/2024 10:5 2 AM CDT 11/16/2024 10:52 AM CDT Narrative [facility] - 11/16/2024 7:48 PM CDT FASTING:NO FASTING: NO Miki Rodriguez MD LAB BLOOD ORDERABLES Final [facility]ult [facility] [address] [place] [address] * Glucose, random (Outreach) (10/22/2024 12:11 PM [...] MD LAB BLOOD ORDERABLES Final R esult [facility] [place] [address] * eGFR (10/22/2024 12:11 PM CDT) eGFR [...] MD LAB BLOOD ORDERABLES Final R esult [facility] [place] [address] * Differential, auto (10/22/2024 12:11 PM CDT) Neutrophil abs 5.3 1.5 - 6.5 K/cumm Imm gran abs 0.0 0.0 - 0.1 K/cumm [facility] Lymphocyte abs 1.0 0.8 - 3.3 K/cumm [facility] Monocyte abs 0.6 0.2 - 0.8 K/cumm [facility] Eosinophil abs 0.2 0.0 - 0.5 K/cumm [facility] Basophil abs 0.1 0.0 - 0.1 K/cumm [facility] Neutrophil pct 74.8 % [facility] Comment: Interpretive Data Percent cell count reference ranges are not reported, since discordance with absolute values may lead to misinterpretation of CBC data. Current Interpretive Data was last revised on 2017. Imm gran pct 0.4 % [facility] Comment: Interpretive Data Percent cell count reference ranges are not reported, since discordance with absolute values may lead to misinterpretation of CBC data. Current Interpretive Data was last revised on 2017. Lymphocyte pct 13.4 % [facility] Comment: Interpretive Data Percent cell count reference ranges are not reported, since discordance with absolute values may lead to misinterpretation of CBC data. Current Interpretive Data was last revised on 2017. Monocyte pct 8.1 % [facility] Comment: Interpretive Data Percent cell count reference ranges are not reported, since discordance with absolute values may lead to misinterpretation of CBC data. Current Interpretive Data was last revised on 2017. Eosinophil pct 2.5 % [facility] Comment: Interpretive Data Percent cell count reference ranges are not reported, since discordance with absolute values may lead to misinterpretation of CBC data. Current Interpretive Data was last revised on 2017. Basophil pct 0.8 % [facility] Comment: Interpretive Data Percent cell count reference ranges are not reported, since discordance with absolute values may lead to misinterpretation of CBC data. Current Interpretive Data was last revised on 2017. Blood 10/22/2024 12:1 1 PM CDT 10/22/2024 4:40 PM CDT us Miki Rodriguez MD LAB BLOOD ORDERABLES Final R esult [facility] [place] [address] * Comprehensive metabolic panel, without glucose (Outreach) (10/22/2024 12:11 PM CDT) Sodium 143 135 - 145 mmol/L Potassium, pl 4.6 3.3 - 4.9 mmol/L [facility] Chloride 102 97 - 110 mmol/L [facility] CO2 29 22 - 32 mmol/L [facility] Anion gap 12 2 - 15 mmol/L [facility] BUN 22 6 - 25 mg/dL [facility] Creatinine 0.87 0.60 - 1.10 mg/dL [facility] Calcium 9.4 8.5 - 10.3 mg/dL [facility] Protein, pl 7.2 6.5 - 8.5 g/dL [facility] Albumin 4.0 3.5 - 5.0 g/dL [facility] Bilirubin, total 0.4 0.1 - 1.2 mg/dL [facility] Alk phos 82 40 - 130 Units/L [facility] AST 25 10 - 45 Units/L [facility] ALT 20 7 - 45 Units/L [facility] Blood 10/22/2024 12:1 1 PM CDT 10/22/2024 4:40 PM CDT Miki Rdoriguez MD LAB BLOOD ORDERABLES Final R esult Performing Organization Address City/[facility]/ZIP Co de Phone Number [facility] [place] [address] * (ABNORMAL) CBC with auto differential (10/22/2024 12:11 PM CDT) WBC 7.1 3.8 - 9.9 K/cumm Hgb 13.2 11.9 - 15.5 g/dL [facility] Hct 41.1 35.6 - 45.5 % [facility] Plt 118(L) 150 - 400 K/cumm [facility] MPV 14.0(H) 9.1 - 12.3 fL [facility] RBC 4.49 3.90 - 5.20 M/cumm [facility] MCV 91.5 81.3 - 96.4 fL [facility] MCH 29.4 27.1 - 33.3 pg [facility] MCHC 32.1(L) 32.3 - 35.7 g/dL [facility] RDW CV 14.5 11.1 - 14.9 % [facility] RDW SD 48.5(H) 35.7 - 48.1 fL [facility] NRBC abs 0.00 0.00 - 0.01 K/cumm [facility] Blood 10/22/2024 12:1 1 PM CDT 10/22/2024 4:40 PM CDT Miki Rodriguez MD LAB BLOOD ORDERABLES Edited Result - Final KEN [facility] [place] [address] * Erythrocyte sedimentation rate (10/22/2024 12:11 PM CDT) Erythrocyte sedimentation rate 21 1 - 30 mm/hr Blood 10/22/2024 12:1 1 PM CDT 10/22/2024 4:40 PM CDT Miki Rodriguez MD LAB BLOOD ORDERABLES Final R esult Performing Organization Address [facility] Co de Phone Number [facility] [place] [address] * eGFR (10/15/2024 3:30 PM CDT) eGFR [...] 3:30 PM CDT 10/15/2024 6:26 PM CDT Miki Rodriguez MD LAB BLOOD ORDERABLES Final R esult Performing Organization Address City/[facility]/ZIP Co de Phone Number [facility] [place] [address] * Differential, auto (10/15/2024 3:30 PM CDT) Pathologist [facility] [place] Neutrophil abs 5.2 1.5 - 6.5 K/cumm Imm gran abs 0.1 0.0 - 0.1 K/cumm [facility] Lymphocyte abs 1.1 0.8 - 3.3 K/cumm [facility] Monocyte abs 0.6 0.2 - 0.8 K/cumm [facility] Eosinophil abs 0.2 0.0 - 0.5 K/cumm [facility] Basophil abs 0.1 0.0 - 0.1 K/cumm [facility] Neutrophil pct 71.9 % [facility] Comment: Interpretive Data Percent cell count reference ranges are not reported, since discordance with absolute values may lead to misinterpretation of CBC data. Current Interpretive Data was last revised on 2017. Imm gran pct 0.7 % [facility] Comment: Interpretive Data Percent cell count reference ranges are not reported, since discordance with absolute values may lead to misinterpretation of CBC data. Current Interpretive Data was last revised on 2017. Lymphocyte pct 15.5 % [facility] Comment: Interpretive Data Percent cell count reference ranges are not reported, since discordance with absolute values may lead to misinterpretation of CBC data. Current Interpretive Data was last revised on 2017. Monocyte pct 8.4 % [facility] Comment: Interpretive Data Percent cell count reference ranges are not reported, since discordance with absolute values may lead to misinterpretation of CBC data. Current Interpretive Data was last revised on 2017. Eosinophil pct 2.4 % [facility] Comment: Interpretive Data Percent cell count reference ranges are not reported, since discordance with absolute values may lead to misinterpretation of CBC data. Current Interpretive Data was last revised on 2017. Basophil pct 1.1 % [facility] Comment: Interpretive Data Percent cell count reference ranges are not reported, since discordance with absolute values may lead to misinterpretation of CBC data. Current Interpretive Data was last revised on 2017. Blood 10/15/2024 3:30 PM CDT 10/15/2024 5:50 PM CDT us Miki Rodriguez MD LAB BLOOD ORDERABLES Final R esult [facility] [place] [address] * (ABNORMAL) CBC with auto differential (10/15/2024 3:30 PM CDT) Pathologist [facility] [place] WBC 7.2 3.8 - 9.9 K/cumm Hgb 12.9 11.9 - 15.5 g/dL [facility] Hct 40.3 35.6 - 45.5 % [facility] Plt 139(L) 150 - 400 K/cumm [facility] MPV 13.3(H) 9.1 - 12.3 fL [facility] RBC 4.35 3.90 - 5.20 M/cumm [facility] MCV 92.6 81.3 - 96.4 fL [facility] MCH 29.7 27.1 - 33.3 pg [facility] MCHC 32.0(L) 32.3 - 35.7 g/dL [facility] RDW CV 14.5 11.1 - 14.9 % [facility] RDW SD 48.7(H) 35.7 - 48.1 fL [facility] NRBC abs 0.00 0.00 - 0.01 K/cumm [facility] Blood 10/15/2024 3:30 PM CDT 10/15/2024 5:50 PM CDT Miki Rodriguez MD LAB BLOOD ORDERABLES Final R esult Performing Organization Address City/[facility] Co de Phone Number [facility] [place] [address] * Erythrocyte sedimentation rate (10/15/2024 3:30 PM CDT) [facility] Erythrocyte sedimentation rate 24 1 - 30 mm/hr Blood 10/15/2024 3:30 PM CDT 10/15/2024 5:50 PM CDT us Miki Rodriguez MD LAB BLOOD ORDERABLES Final R esult Performing Organization Address City/[facility]/ZIP Co de Phone Number [facility] [place] [address] * Comprehensive metabolic panel (10/15/2024 3:30 PM CDT) [facility] Sodium 143 135 - 145 mmol/L Potassium, pl 3.9 3.3 - 4.9 mmol/L [facility] Chloride 102 97 - 110 mmol/L [facility] CO2 30 22 - 32 mmol/L [facility] Anion gap 11 2 - 15 mmol/L [facility] BUN 18 6 - 25 mg/dL [facility] Creatinine 0.81 0.60 - 1.10 mg/dL [facility] Glucose 124 70 - 199 mg/dL [facility] Comment: Interpretive Data Fasting glucose >/= 126 [...] 2022. Calcium 9.2 8.5 - 10.3 mg/dL [facility] Bilirubin, total 0.2 0.1 - 1.2 mg/dL [facility] Protein, pl 7.2 6.5 - 8.5 g/dL [facility] Albumin 3.7 3.5 - 5.0 g/dL [facility] Alk phos 75 40 - 130 Units/L [facility] ALT 18 7 - 45 Units/L [facility] AST 18 10 - 45 Units/L [facility] Blood 10/15/2024 3:30 PM CDT 10/15/2024 5:49 PM CDT us Miki Rodriguez MD LAB BLOOD ORDERABLES Final R esult [facility] [place] [address] * eGFR (10/09/2024 11:30 AM SECURITY SYSTEMS INTEGRATOR) Pathologist [facility] [place] eGFR 81 >=60 mL/min/1. 73 m2 Comment: [...] reviewed 2021. Blood 10/09/2024 11:3 0 AM SECURITY SYSTEMS INTEGRATOR 10/09/2024 4:41 PM SECURITY SYSTEMS INTEGRATOR us Miki Rodriguez MD LAB BLOOD ORDERABLES Final R esult [facility] [place] [address] * (ABNORMAL) Differential, auto (10/09/2024 11:30 AM SECURITY SYSTEMS INTEGRATOR) [facility] Neutrophil abs 6.8(H) 1.5 - 6.5 K/cumm Imm gran abs 0.1 0.0 - 0.1 K/cumm [facility] Lymphocyte abs 1.1 0.8 - 3.3 K/cumm [facility] Monocyte abs 0.8 0.2 - 0.8 K/cumm [facility] Eosinophil abs 0.2 0.0 - 0.5 K/cumm [facility] Basophil abs 0.1 0.0 - 0.1 K/cumm [facility] Neutrophil pct 76.3 % [facility] Comment: Interpretive Data Percent cell count reference ranges are not reported, since discordance with absolute values may lead to misinterpretation of CBC data. Current Interpretive Data was last revised on 2017. Imm gran pct 0.8 % [facility] Comment: Interpretive Data Percent cell count reference ranges are not reported, since discordance with absolute values may lead to misinterpretation of CBC data. Current Interpretive Data was last revised on 2017. Lymphocyte pct 11.9 % [facility] Comment: Interpretive Data Percent cell count reference ranges are not reported, since discordance with absolute values may lead to misinterpretation of CBC data. Current Interpretive Data was last revised on 2017. Monocyte pct 8.5 % [facility] Comment: Interpretive Data Percent cell count reference ranges are not reported, since discordance with absolute values may lead to misinterpretation of CBC data. Current Interpretive Data was last revised on 2017. Eosinophil pct 1.7 % [facility] Comment: Interpretive Data Percent cell count reference ranges are not reported, since discordance with absolute values may lead to misinterpretation of CBC data. Current Interpretive Data was last revised on 2017. Basophil pct 0.8 % [facility] Comment: Interpretive Data Percent cell count reference ranges are not reported, since discordance with absolute values may lead to misinterpretation of CBC data. Current Interpretive Data was last revised on 2017. Blood 10/09/2024 11:3 0 AM SECURITY SYSTEMS INTEGRATOR 10/09/2024 4:29 PM SECURITY SYSTEMS INTEGRATOR us Miki Rodriguez MD LAB BLOOD ORDERABLES Final R esult [facility] Department [place] [address] * (ABNORMAL) CBC with auto differential (10/09/2024 11:30 AM SECURITY SYSTEMS INTEGRATOR) WBC 9.0 3.8 - 9.9 K/cumm Hgb 13.4 11.9 - 15.5 g/dL [facility] Hct 41.3 35.6 - 45.5 % [facility] Plt 128(L) 150 - 400 K/cumm [facility] MPV 13.8(H) 9.1 - 12.3 fL [facility] RBC 4.56 3.90 - 5.20 M/cumm [facility] MCV 90.6 81.3 - 96.4 fL [facility] MCH 29.4 27.1 - 33.3 pg [facility] MCHC 32.4 32.3 - 35.7 g/dL [facility] RDW CV 14.6 11.1 - 14.9 % [facility] RDW SD 48.6(H) 35.7 - 48.1 fL [facility] NRBC abs 0.00 0.00 - 0.01 K/cumm [facility] Blood 10/09/2024 11:3 0 AM SECURITY SYSTEMS INTEGRATOR 10/09/2024 4:29 PM SECURITY SYSTEMS INTEGRATOR Miki Rodriguez MD LAB BLOOD ORDERABLES Final R esult Performing Organization Address [facility] Co de Phone Number [facility] [place] [address] * Erythrocyte sedimentation rate (10/09/2024 11:30 AM SECURITY SYSTEMS INTEGRATOR) [facility] Erythrocyte sedimentation rate 22 1 - 30 mm/hr Blood 10/09/2024 11:3 0 AM SECURITY SYSTEMS INTEGRATOR 10/09/2024 4:29 PM SECURITY SYSTEMS INTEGRATOR Miki Rodriguez MD LAB BLOOD ORDERABLES Final R esult Performing Organization Address City/[facility] de Phone Number [facility] [place] [address] * Comprehensive metabolic panel (10/09/2024 11:30 AM SECURITY SYSTEMS INTEGRATOR) [facility] Sodium 142 135 - 145 mmol/L Potassium, pl 4.4 3.3 - 4.9 mmol/L [facility] Chloride 102 97 - 110 mmol/L [facility] CO2 28 22 - 32 mmol/L [facility] Anion gap 12 2 - 15 mmol/L [facility] BUN 21 6 - 25 mg/dL [facility] Creatinine 0.77 0.60 - 1.10 mg/dL [facility] Glucose 85 70 - 199 mg/dL [facility] Comment: Interpretive Data Fasting glucose >/= 126 [...] 2022. Calcium 9.4 8.5 - 10.3 mg/dL [facility] Bilirubin, total 0.3 0.1 - 1.2 mg/dL [facility] Protein, pl 7.2 6.5 - 8.5 g/dL [facility] Albumin 3.7 3.5 - 5.0 g/dL [facility] Alk phos 70 40 - 130 Units/L [facility] ALT 20 7 - 45 Units/L [facility] AST 25 10 - 45 Units/L [facility] Blood 10/09/2024 11:3 0 AM SECURITY SYSTEMS INTEGRATOR 10/09/2024 4:29 PM SECURITY SYSTEMS INTEGRATOR us Miki Rodriguez MD LAB BLOOD ORDERABLES Final R esult [facility] [place] [address] * eGFR (10/02/2024 12:22 PM SECURITY SYSTEMS INTEGRATOR) eGFR 77 >=60 mL/min/1. 73 m2 Comment: [...] reviewed 2021. Blood 10/02/2024 12:2 2 PM SECURITY SYSTEMS INTEGRATOR 10/02/2024 3:47 PM SECURITY SYSTEMS INTEGRATOR us Miki Rodriguez MD LAB BLOOD ORDERABLES Final R esult [facility] [place] [address] * Differential, auto (10/02/2024 12:22 PM SECURITY SYSTEMS INTEGRATOR) Neutrophil abs 5.4 1.5 - 6.5 K/cumm Imm gran abs 0.1 0.0 - 0.1 K/cumm [facility] Lymphocyte abs 1.2 0.8 - 3.3 K/cumm [facility] Monocyte abs 0.6 0.2 - 0.8 K/cumm [facility] Eosinophil abs 0.2 0.0 - 0.5 K/cumm [facility] Basophil abs 0.1 0.0 - 0.1 K/cumm [facility] Neutrophil pct 71.9 % [facility] Comment: Interpretive Data Percent cell count reference ranges are not reported, since discordance with absolute values may lead to misinterpretation of CBC data. Current Interpretive Data was last revised on 2017. Imm gran pct 0.9 % [facility] Comment: Interpretive Data Percent cell count reference ranges are not reported, since discordance with absolute values may lead to misinterpretation of CBC data. Current Interpretive Data was last revised on 2017. Lymphocyte pct 15.7 % [facility] Comment: Interpretive Data Percent cell count reference ranges are not reported, since discordance with absolute values may lead to misinterpretation of CBC data. Current Interpretive Data was last revised on 2017. Monocyte pct 8.1 % [facility] Comment: Interpretive Data Percent cell count reference ranges are not reported, since discordance with absolute values may lead to misinterpretation of CBC data. Current Interpretive Data was last revised on 2017. Eosinophil pct 2.3 % [facility] Comment: Interpretive Data Percent cell count reference ranges are not reported, since discordance with absolute values may lead to misinterpretation of CBC data. Current Interpretive Data was last revised on 2017. Basophil pct 1.1 % [facility] Comment: Interpretive Data Percent cell count reference ranges are not reported, since discordance with absolute values may lead to misinterpretation of CBC data. Current Interpretive Data was last revised on 2017. Blood 10/02/2024 12:2 2 PM SECURITY SYSTEMS INTEGRATOR 10/02/2024 3:32 PM SECURITY SYSTEMS INTEGRATOR us Miki Rodriguez MD LAB BLOOD ORDERABLES Final R esult [facility] [place] [address] * (ABNORMAL) CBC with auto differential (10/02/2024 12:22 PM SECURITY SYSTEMS INTEGRATOR) WBC 7.4 3.8 - 9.9 K/cumm Hgb 13.3 11.9 - 15.5 g/dL [facility] Hct 42.4 35.6 - 45.5 % [facility] Plt 136(L) 150 - 400 K/cumm [facility] MPV 13.8(H) 9.1 - 12.3 fL [facility] RBC 4.62 3.90 - 5.20 M/cumm [facility] MCV 91.8 81.3 - 96.4 fL [facility] MCH 28.8 27.1 - 33.3 pg [facility] MCHC 31.4(L) 32.3 - 35.7 g/dL [facility] RDW CV 14.8 11.1 - 14.9 % [facility] RDW SD 49.8(H) 35.7 - 48.1 fL [facility] NRBC abs 0.00 0.00 - 0.01 K/cumm [facility] Blood 10/02/2024 12:2 2 PM SECURITY SYSTEMS INTEGRATOR 10/02/2024 3:32 PM SECURITY SYSTEMS INTEGRATOR us Miki Rodriguez MD LAB BLOOD ORDERABLES Edited Result - Final Performing Organization Address [facility] Co de Phone Number [facility] [place] [address] * Erythrocyte sedimentation rate (10/02/2024 12:22 PM SECURITY SYSTEMS INTEGRATOR) [facility] Erythrocyte sedimentation rate 19 1 - 30 mm/hr Blood 10/02/2024 12:2 2 PM SECURITY SYSTEMS INTEGRATOR 10/02/2024 3:32 PM SECURITY SYSTEMS INTEGRATOR Miki Rodriguez MD LAB BLOOD ORDERABLES Final R esult Performing Organization Address [facility] de Phone Number [facility] [place] [address] * Comprehensive metabolic panel (10/02/2024 12:22 PM SECURITY SYSTEMS INTEGRATOR) [facility] Sodium 143 135 - 145 mmol/L Potassium, pl 4.2 3.3 - 4.9 mmol/L [facility] Chloride 103 97 - 110 mmol/L [facility] CO2 30 22 - 32 mmol/L [facility] Anion gap 10 2 - 15 mmol/L [facility] BUN 24 6 - 25 mg/dL [facility] Creatinine 0.81 0.60 - 1.10 mg/dL [facility] Glucose 153 70 - 199 mg/dL [facility] Comment: Interpretive Data Fasting glucose >/= 126 [...] 2022. Calcium 9.2 8.5 - 10.3 mg/dL [facility] Bilirubin, total <0.2 0.1 - 1.2 mg/dL [facility] Protein, pl 6.9 6.5 - 8.5 g/dL [facility] Albumin 3.7 3.5 - 5.0 g/dL [facility] Alk phos 67 40 - 130 Units/L [facility] ALT 19 7 - 45 Units/L [facility] AST 20 10 - 45 Units/L [facility] Blood 10/02/2024 12:2 2 PM SECURITY SYSTEMS INTEGRATOR 10/02/2024 3:32 PM SECURITY SYSTEMS INTEGRATOR Miki Rodriguez MD LAB BLOOD ORDERABLES Final R esult [facility] [place] [address] * (ABNORMAL) Urinalysis reflex to microscopic and culture Urine (09/28/2024 4:01 PM SECURITY SYSTEMS INTEGRATOR) Color, ur Yellow Yellow Clarity, ur Clear Clear [facility] Specific gravity, ur 1.032(H) 1.003 - 1.030 [facility] pH, urine 6.0 [facility] Comment: Interpretive Data U rine pH is affected by diet, medications, systemic acid-base disturbances, and renal tubular function. pH may affect urinary stone formation. For example, urine pH below 6.0 may help reduce the tendency for calcium phosphate stones and pH greater than 6.0 may reduce the tendency for uric acid stone formation. Source: [facility] Current Interpretive Data was last revised on 2017 Protein, ur ql Negative Negative [facility] Glucose, ur ql Negative Negative [facility] Ketones, ur Trace Negative [facility] Bilirubin, ur Negative Negative [facility] Blood, ur Negative Negative [facility] Urobilinogen, ur <2.0 <2.0 mg/dL [facility] Nitrite, ur Negative Negative [facility] Leukocyte esterase, ur 2+(A) Negative [facility] UA reflex comment Reflex to microscopic UA will be performed. [facility] Urine 09/28/2024 4:01 PM SECURITY SYSTEMS INTEGRATOR 09/28/2024 4:04 PM SECURITY SYSTEMS INTEGRATOR [facility] - GENERAL ORDERABLES Final Result Performing Organization Address [facility] de Phone Number [address] [address] * (ABNORMAL) Urinalysis, microscopic only (09/28/2024 4:01 PM SECURITY SYSTEMS INTEGRATOR) WBC, ur 6-10(A) 0 - 5 /HPF RBC, ur 0-2 0 - 2 /HPF [facility] Epithelial cells, squamous, ur 6-10(A) 0 - 5 /HPF [facility] Comment:Suggestive of contam ination. Consider recollection by clean catch. Mucous, ur Present(A) [facility] Hyaline casts, ur 6-10 0 - 10 /LPF [facility] Culture Reflex Comment Reflex conditions for urine culture (WBC >10) not met. [facility] Urine 09/28/2024 4:01 PM SECURITY SYSTEMS INTEGRATOR 09/28/2024 4:04 PM SECURITY SYSTEMS INTEGRATOR Kurtis Epstein [facility] URINE ORDERABLES Final Result Performing Organization Address [facility] de Phone Number [address] [address] * eGFR (09/28/2024 4:00 PM SECURITY SYSTEMS INTEGRATOR) eGFR >90 >=60 mL/min/1. 73 m2 Comment: [...] last reviewed 2021. Blood 09/28/2024 4:00 PM SECURITY SYSTEMS INTEGRATOR 09/28/2024 4:04 PM SECURITY SYSTEMS INTEGRATOR Kurtis Epstein DO LAB BLOOD ORDERABLES Final Result [place] [id number] [facility] [place] [address] * (ABNORMAL) Differential, auto (09/28/2024 4:00 PM SECURITY SYSTEMS INTEGRATOR) Neutrophil abs 6.6(H) 1.5 - 6.5 K/cumm Imm gran abs 0.1 0.0 - 0.1 K/cumm [facility] Lymphocyte abs 1.2 0.8 - 3.3 K/cumm [facility] Monocyte abs 0.8 0.2 - 0.8 K/cumm [facility] Eosinophil abs 0.2 0.0 - 0.5 K/cumm [facility] Basophil abs 0.1 0.0 - 0.1 K/cumm [facility] Neutrophil pct 73.5 % [facility] Comment: Interpretive Data Percent cell count reference ranges are not reported, since discordance with absolute values may lead to misinterpretation of CBC data. Current Interpretive Data was last revised on 2017. Imm gran pct 0.6 % [facility] Comment: Interpretive Data Percent cell count reference ranges are not reported, since discordance with absolute values may lead to misinterpretation of CBC data. Current Interpretive Data was last revised on 2017. Lymphocyte pct 13.8 % [facility] Comment: Interpretive Data Percent cell count reference ranges are not reported, since discordance with absolute values may lead to misinterpretation of CBC data. Current Interpretive Data was last revised on 2017. Monocyte pct 9.1 % [facility] Comment: Interpretive Data Percent cell count reference ranges are not reported, since discordance with absolute values may lead to misinterpretation of CBC data. Current Interpretive Data was last revised on 2017. Eosinophil pct 2.1 % [facility] Comment: Interpretive Data Percent cell count reference ranges are not reported, since discordance with absolute values may lead to misinterpretation of CBC data. Current Interpretive Data was last revised on 2017. Basophil pct 0.9 % [facility] Comment: Interpretive Data Percent cell count reference ranges are not reported, since discordance with absolute values may lead to misinterpretation of CBC data. Current Interpretive Data was last revised on 2017. Blood 09/28/2024 4:00 PM SECURITY SYSTEMS INTEGRATOR 09/28/2024 4:04 PM SECURITY SYSTEMS INTEGRATOR Kurtis Epstein LAB BLOOD ORDERABLES Final Result [facility] [address] [facility] Department [place] [address] * (ABNORMAL) CBC with auto differential (09/28/2024 4:00 PM SECURITY SYSTEMS INTEGRATOR) WBC 8.9 3.8 - 9.9 K/cumm Hgb 13.9 11.9 - 15.5 g/dL [facility] Hct 44.1 35.6 - 45.5 % [facility] Plt 140(L) 150 - 400 K/cumm [facility] MPV 12.4(H) 9.1 - 12.3 fL [facility] RBC 4.79 3.90 - 5.20 M/cumm [facility] MCV 92.1 81.3 - 96.4 fL [facility] MCH 29.0 27.1 - 33.3 pg [facility] MCHC 31.5(L) 32.3 - 35.7 g/dL [facility] RDW CV 14.8 11.1 - 14.9 % [facility] RDW SD 49.7(H) 35.7 - 48.1 fL [facility] NRBC abs 0.00 0.00 - 0.01 K/cumm [facility] Blood 09/28/2024 4:00 PM SECURITY SYSTEMS INTEGRATOR 09/28/2024 4:04 PM SECURITY SYSTEMS INTEGRATOR Kurtis Epstein DO LAB BLOOD ORDERABLES Final Result Performing Organization Address [facility] Co de Phone Number [address] [address] * Phosphorus (09/28/2024 4:00 PM SECURITY SYSTEMS INTEGRATOR) [facility] Phosphorus, pl 3.2 2.3 - 4.5 mg/dL Blood 09/28/2024 4:00 PM SECURITY SYSTEMS INTEGRATOR 09/28/2024 4:04 PM SECURITY SYSTEMS INTEGRATOR Jes ARAUJO LAB BLOOD ORDERABLES Final Result Performing Organization Address [facility] de Phone Number [address] [address] * Magnesium (09/28/2024 4:00 PM SECURITY SYSTEMS INTEGRATOR) [facility] Magnesium 1.6 1.4 - 2.5 mg/dL Blood 09/28/2024 4:00 PM SECURITY SYSTEMS INTEGRATOR 09/28/2024 4:04 PM SECURITY SYSTEMS INTEGRATOR Jes ARAUJO LAB BLOOD ORDERABLES Final Result Performing Organization Address [facility] de Phone Number [address] [address] * Comprehensive metabolic panel (09/28/2024 4:00 PM SECURITY SYSTEMS INTEGRATOR) [facility] Sodium 142 135 - 145 mmol/L Potassium, pl 4.2 3.3 - 4.9 mmol/L [facility] Chloride 105 97 - 110 mmol/L [facility] CO2 25 22 - 32 mmol/L [facility] Anion gap 12 2 - 15 mmol/L [facility] BUN 23 6 - 25 mg/dL [facility] Creatinine 0.70 0.60 - 1.10 mg/dL [facility] Glucose 90 70 - 199 mg/dL [facility] Comment: Interpretive Data Fasting glucose >/= [...] 2022. Calcium 9.0 8.5 - 10.3 mg/dL [facility] Bilirubin, total 0.2 0.1 - 1.2 mg/dL [facility] Protein, pl 6.7 6.5 - 8.5 g/dL [facility] Albumin 3.9 3.5 - 5.0 g/dL [facility] Alk phos 71 40 - 130 Units/L [facility] ALT 14 7 - 45 Units/L [facility] AST 21 10 - 45 Units/L [facility] Blood 09/28/2024 4:00 PM SECURITY SYSTEMS INTEGRATOR 09/28/2024 4:04 PM SECURITY SYSTEMS INTEGRATOR Kurtis Epstein DO LAB BLOOD ORDERABLES Final Result [facility] [address] [facility] Department [place] [address] * ECG 12 lead (09/28/2024 3:47 PM SECURITY SYSTEMS INTEGRATOR) Ventricular Rate EKG/Min 69 BPM [facility] Atrial Rate 69 BPM [facility] [place]-Interval (MSEC) 158 ms [facility] QRS-Interval (MSEC) 92 ms [facility] QT-Interval (MSEC) 412 ms [facility] QTc 441 ms [facility] P [place] 38 degrees [facility] R [place] 24 degrees [facility] T [place] 41 degrees [facility] Diagnosis Normal sinus rhythm Normal ECG When compared with ECG of 30-AUG-2024 12:52, Premature atrial complexes are no longer Present Confirmed by MITZI MCCAULEY M.D. ([id number]) on 09/29/2024 7:08:33 AM [facility] 09/28/2024 3:47 PM SECURITY SYSTEMS INTEGRATOR 09/29/2024 7:08 AM SECURITY SYSTEMS INTEGRATOR us Kurtis Epstein DO ECG ORDERABLES Final Resul t [facility] * Glucose, random (Outreach) (09/25/2024 9:10 AM SECURITY SYSTEMS INTEGRATOR) Glucose 119 70 - 199 mg/dL Comment: [...] last revised 2022. Blood 09/25/2024 9:10 AM SECURITY SYSTEMS INTEGRATOR 09/25/2024 11:28 AM SECURITY SYSTEMS INTEGRATOR Miki Rodriguez MD LAB BLOOD ORDERABLES Final R esult [facility] Department [place] [address] * eGFR (09/25/2024 9:10 AM SECURITY SYSTEMS INTEGRATOR) eGFR 64 >=60 mL/min/1. 73 m2 Comment: [...] last reviewed 2021. Blood 09/25/2024 9:10 AM SECURITY SYSTEMS INTEGRATOR 09/25/2024 11:28 AM SECURITY SYSTEMS INTEGRATOR us Miki Rodriguez MD LAB BLOOD ORDERABLES Final R esult [facility] [address] [facility] Department [place] [address] * Differential, auto (09/25/2024 9:10 AM SECURITY SYSTEMS INTEGRATOR) Neutrophil abs 5.7 1.5 - 6.5 K/cumm Imm gran abs 0.0 0.0 - 0.1 K/cumm [facility] Lymphocyte abs 1.4 0.8 - 3.3 K/cumm [facility] Monocyte abs 0.7 0.2 - 0.8 K/cumm [facility] Eosinophil abs 0.2 0.0 - 0.5 K/cumm [facility] Basophil abs 0.1 0.0 - 0.1 K/cumm [facility] Neutrophil pct 70.0 % [facility] Comment: Confirmed by smear review Interpretive Data Percent cell count reference ranges are not reported, since discordance with absolute values may lead to misinterpretation of CBC data. Current Interpretive Data was last revised on 2017. Imm gran pct 0.5 % [facility] Comment: Interpretive Data Percent cell count reference ranges are not reported, since discordance with absolute values may lead to misinterpretation of CBC data. Current Interpretive Data was last revised on 2017. Lymphocyte pct 17.6 % [facility] Comment: Interpretive Data Percent cell count reference ranges are not reported, since discordance with absolute values may lead to misinterpretation of CBC data. Current Interpretive Data was last revised on 2017. Monocyte pct 8.9 % [facility] Comment: Interpretive Data Percent cell count reference ranges are not reported, since discordance with absolute values may lead to misinterpretation of CBC data. Current Interpretive Data was last revised on 2017. Eosinophil pct 2.1 % [facility] Comment: Interpretive Data Percent cell count reference ranges are not reported, since discordance with absolute values may lead to misinterpretation of CBC data. Current Interpretive Data was last revised on 2017. Basophil pct 0.9 % [facility] Comment: Interpretive Data Percent cell count reference ranges are not reported, since discordance with absolute values may lead to misinterpretation of CBC data. Current Interpretive Data was last revised on 2017. Blood 09/25/2024 9:10 AM SECURITY SYSTEMS INTEGRATOR 09/25/2024 11:28 AM SECURITY SYSTEMS INTEGRATOR us Miki Rodriguez MD LAB BLOOD ORDERABLES Final R esult [facility] [address] [facility] Department [place] [address] * Comprehensive metabolic panel, without glucose (Outreach) (09/25/2024 9:10 AM SECURITY SYSTEMS INTEGRATOR) Sodium 141 135 - 145 mmol/L Potassium, pl 4.6 3.3 - 4.9 mmol/L [facility] Comment:Hemolyzed; Potassium value may be falsely elevated by as much as 0.3-0.5 mmol/L. Suggest redraw and reanalysis. Chloride 103 97 - 110 mmol/L [facility] CO2 28 22 - 32 mmol/L [facility] Anion gap 10 2 - 15 mmol/L [facility] BUN 15 6 - 25 mg/dL [facility] Creatinine 0.94 0.60 - 1.10 mg/dL [facility] Calcium 9.1 8.5 - 10.3 mg/dL [facility] Protein, pl 7.2 6.5 - 8.5 g/dL [facility] Albumin 4.1 3.5 - 5.0 g/dL [facility] Bilirubin, total 0.3 0.1 - 1.2 mg/dL [facility] Alk phos 80 40 - 130 Units/L [facility] AST 31 10 - 45 Units/L [facility] Comment:Hemolyzed; result ma y be falsely elevated ALT 27 7 - 45 Units/L [facility] Blood 09/25/2024 9:10 AM SECURITY SYSTEMS INTEGRATOR 09/25/2024 11:28 AM SECURITY SYSTEMS INTEGRATOR us Miki Rodriguez MD LAB BLOOD ORDERABLES Final R esult Performing Organization Address City/State/[facility] Co de Phone Number [facility] [address] [facility] Department [place] [address] * (ABNORMAL) CBC with auto differential (09/25/2024 9:10 AM SECURITY SYSTEMS INTEGRATOR) Pathologist [facility] WBC 8.2 3.8 - 9.9 K/cumm Hgb 13.4 11.9 - 15.5 g/dL [facility] Hct 43.0 35.6 - 45.5 % [facility] Plt 118(L) 150 - 400 K/cumm [facility] Comment:No clot detected in sample. MPV Not Measured 9.1 - 12.3 fL [facility] RBC 4.60 3.90 - 5.20 M/cumm [facility] MCV 93.5 81.3 - 96.4 fL [facility] MCH 29.1 27.1 - 33.3 pg [facility] MCHC 31.2(L) 32.3 - 35.7 g/dL [facility] RDW CV 14.7 11.1 - 14.9 % [facility] RDW SD 50.4(H) 35.7 - 48.1 fL [facility] NRBC abs 0.00 0.00 - 0.01 K/cumm [facility] Blood 09/25/2024 9:10 AM SECURITY SYSTEMS INTEGRATOR 09/25/2024 11:28 AM SECURITY SYSTEMS INTEGRATOR Miki Rodriguez MD LAB BLOOD ORDERABLES Final R esult [facility] Department [place] [address] * Erythrocyte sedimentation rate (09/25/2024 9:10 AM SECURITY SYSTEMS INTEGRATOR) Pathologist [facility] Erythrocyte sedimentation rate 19 1 - 30 mm/hr Blood 09/25/2024 9:10 AM SECURITY SYSTEMS INTEGRATOR 09/25/2024 11:28 AM SECURITY SYSTEMS INTEGRATOR us Miki Rodriguez MD LAB BLOOD ORDERABLES Final R esult Performing Organization Address [facility] [place] [address] * Glucose, random (Outreach) (09/18/2024 11:20 AM SECURITY SYSTEMS INTEGRATOR) [facility] Glucose 115 70 - 199 mg/dL Comment: [...] revised 2022. Blood 09/18/2024 11:2 0 AM SECURITY SYSTEMS INTEGRATOR 09/18/2024 2:59 PM SECURITY SYSTEMS INTEGRATOR Miki Rodriguez MD LAB BLOOD ORDERABLES Final R esult Performing Organization Address [facility] Co de Phone Number KEN [facility] [place] [address] * eGFR (09/18/2024 11:20 AM SECURITY SYSTEMS INTEGRATOR) Pathologist [facility] eGFR 79 >=60 mL/min/1. 73 m2 Comment: [...] reviewed 2021. Blood 09/18/2024 11:2 0 AM SECURITY SYSTEMS INTEGRATOR 09/18/2024 3:13 PM SECURITY SYSTEMS INTEGRATOR us Miki Rodriguez MD LAB BLOOD ORDERABLES Final R esult [facility] [address] [facility] Department [place] [address] * Differential, auto (09/18/2024 11:20 AM SECURITY SYSTEMS INTEGRATOR) Pathologist [facility] Neutrophil abs 5.3 1.5 - 6.5 K/cumm Imm gran abs 0.1 0.0 - 0.1 K/cumm [facility] Lymphocyte abs 1.0 0.8 - 3.3 K/cumm [facility] Monocyte abs 0.7 0.2 - 0.8 K/cumm [facility] Eosinophil abs 0.3 0.0 - 0.5 K/cumm [facility] Basophil abs 0.1 0.0 - 0.1 K/cumm [facility] Neutrophil pct 71.7 % [facility] Comment: Confirmed by smear review Interpretive Data Percent cell count reference ranges are not reported, since discordance with absolute values may lead to misinterpretation of CBC data. Current Interpretive Data was last revised on 2017. Imm gran pct 0.7 % [facility] Comment: Interpretive Data Percent cell count reference ranges are not reported, since discordance with absolute values may lead to misinterpretation of CBC data. Current Interpretive Data was last revised on 2017. Lymphocyte pct 13.9 % [facility] Comment: Interpretive Data Percent cell count reference ranges are not reported, since discordance with absolute values may lead to misinterpretation of CBC data. Current Interpretive Data was last revised on 2017. Monocyte pct 9.4 % [facility] Comment: Interpretive Data Percent cell count reference ranges are not reported, since discordance with absolute values may lead to misinterpretation of CBC data. Current Interpretive Data was last revised on 2017. Eosinophil pct 3.5 % [facility] Comment: Interpretive Data Percent cell count reference ranges are not reported, since discordance with absolute values may lead to misinterpretation of CBC data. Current Interpretive Data was last revised on 2017. Basophil pct 0.8 % [facility] Comment: Interpretive Data Percent cell count reference ranges are not reported, since discordance with absolute values may lead to misinterpretation of CBC data. Current Interpretive Data was last revised on 2017. Blood 09/18/2024 11:2 0 AM SECURITY SYSTEMS INTEGRATOR 09/18/2024 2:59 PM SECURITY SYSTEMS INTEGRATOR us Miki Rodriguez MD LAB BLOOD ORDERABLES Final R esult [facility] [address] [facility] Department [place] [address] * (ABNORMAL) Comprehensive metabolic panel, without glucose (Outreach) (09/18/2024 11:20 AM SECURITY SYSTEMS INTEGRATOR) Sodium 138 135 - 145 mmol/L Potassium, pl 5.4(H) 3.3 - 4.9 mmol/L [facility] Comment:Hemolyzed; Potassium value may be falsely elevated by as much as 0.6-1.0 mmol/L. Suggest redraw and reanalysis. Chloride 103 97 - 110 mmol/L [facility] CO2 27 22 - 32 mmol/L [facility] Anion gap 8 2 - 15 mmol/L [facility] BUN 18 6 - 25 mg/dL [facility] Creatinine 0.79 0.60 - 1.10 mg/dL [facility] Calcium 9.2 8.5 - 10.3 mg/dL [facility] Protein, pl 7.3 6.5 - 8.5 g/dL [facility] Albumin 3.7 3.5 - 5.0 g/dL [facility] Bilirubin, total 0.3 0.1 - 1.2 mg/dL [facility] Alk phos 83 40 - 130 Units/L [facility] AST 48(H) 10 - 45 Units/L [facility] Comment:Hemolyzed; result ma y be falsely elevated ALT 28 7 - 45 Units/L [facility] Blood 09/18/2024 11:2 0 AM SECURITY SYSTEMS INTEGRATOR 09/18/2024 2:59 PM SECURITY SYSTEMS INTEGRATOR us Miki Rodriguez MD LAB BLOOD ORDERABLES Final R esult [facility] [address] [facility] Department [place] [address] * (ABNORMAL) CBC with auto differential (09/18/2024 11:20 AM SECURITY SYSTEMS INTEGRATOR) WBC 7.4 3.8 - 9.9 K/cumm Hgb 13.3 11.9 - 15.5 g/dL [facility] Hct 40.8 35.6 - 45.5 % [facility] Plt 139(L) 150 - 400 K/cumm [facility] Comment:No clot detected in sample. MPV 14.3(H) 9.1 - 12.3 fL [facility] RBC 4.60 3.90 - 5.20 M/cumm [facility] MCV 88.7 81.3 - 96.4 fL [facility] MCH 28.9 27.1 - 33.3 pg [facility] MCHC 32.6 32.3 - 35.7 g/dL [facility] RDW CV 15.2(H) 11.1 - 14.9 % [facility] RDW SD 48.9(H) 35.7 - 48.1 fL [facility] NRBC abs 0.02(H) 0.00 - 0.01 K/cumm [facility] Blood 09/18/2024 11:2 0 AM SECURITY SYSTEMS INTEGRATOR 09/18/2024 2:59 PM SECURITY SYSTEMS INTEGRATOR us Miki Rodriguez MD LAB BLOOD ORDERABLES Final R esult Performing Organization Address City/[facility] Co de Phone Number [facility] [place] [address] * Erythrocyte sedimentation rate (09/18/2024 11:20 AM SECURITY SYSTEMS INTEGRATOR) Erythrocyte sedimentation rate 19 1 - 30 mm/hr Blood 09/18/2024 11:2 0 AM SECURITY SYSTEMS INTEGRATOR 09/18/2024 2:59 PM SECURITY SYSTEMS INTEGRATOR us Miki Rodriguez MD LAB BLOOD ORDERABLES Final R esult Performing Organization Address City/[facility] de Phone Number [facility] [place] [address] * eGFR (09/17/2024 3:49 AM SECURITY SYSTEMS INTEGRATOR) eGFR >90 >=60 mL/min/1. 73 m2 Comment: [...] last reviewed 2021. Blood 09/17/2024 3:49 AM SECURITY SYSTEMS INTEGRATOR 09/17/2024 4:02 AM SECURITY SYSTEMS INTEGRATOR Lore ARAUJO LAB BLOOD ORDERABLES Final Result Performing Organization Address [facility] Co de Phone Number [address] [address] * Hemoglobin and hematocrit (09/17/2024 3:49 AM SECURITY SYSTEMS INTEGRATOR) Pathologist [facility] Hgb 12.8 11.9 - 15.5 g/dL Hct 40.9 35.6 - 45.5 % [facility] Blood 09/17/2024 3:49 AM SECURITY SYSTEMS INTEGRATOR 09/17/2024 4:02 AM SECURITY SYSTEMS INTEGRATOR Lore ARAUJO LAB BLOOD ORDERABLES Final Result Performing Organization Address [facility] de Phone Number [address] [address] * Basic metabolic panel (09/17/2024 3:49 AM SECURITY SYSTEMS INTEGRATOR) Pathologist [facility] Sodium 140 135 - 145 mmol/L Potassium, pl 4.1 3.3 - 4.9 mmol/L [facility] Chloride 105 97 - 110 mmol/L [facility] CO2 25 22 - 32 mmol/L [facility] Anion gap 10 2 - 15 mmol/L [facility] BUN 20 6 - 25 mg/dL [facility] Creatinine 0.67 0.60 - 1.10 mg/dL [facility] Glucose 101 70 - 199 mg/dL [facility] Comment: Interpretive Data Fasting glucose >/= [...] 2022. Calcium 9.2 8.5 - 10.3 mg/dL [facility] Blood 09/17/2024 3:49 AM SECURITY SYSTEMS INTEGRATOR 09/17/2024 4:02 AM SECURITY SYSTEMS INTEGRATOR Lore ARAUJO LAB BLOOD ORDERABLES Final Result Performing Organization Address [facility] Co de Phone Number [facility] [place] [address] * eGFR (09/16/2024 3:14 AM SECURITY SYSTEMS INTEGRATOR) eGFR >90 >=60 mL/min/1. 73 m2 Comment: [...] last reviewed 2021. Blood 09/16/2024 3:14 AM SECURITY SYSTEMS INTEGRATOR 09/16/2024 3:17 AM SECURITY SYSTEMS INTEGRATOR Lore ARAUJO LAB BLOOD ORDERABLES Final Result Performing Organization Address [facility] Co de Phone Number [facility] [address] [place] [address] [place] [address] * Hemoglobin and hematocrit (09/16/2024 3:14 AM SECURITY SYSTEMS INTEGRATOR) Pathologist [facility] Hgb 13.2 11.9 - 15.5 g/dL Hct 40.8 35.6 - 45.5 % [facility] Blood 09/16/2024 3:14 AM SECURITY SYSTEMS INTEGRATOR 09/16/2024 3:18 AM SECURITY SYSTEMS INTEGRATOR Lore ARAUJO LAB BLOOD ORDERABLES Final Result Performing Organization Address [facility] de Phone Number [address] [email or web address] [address] * Basic metabolic panel (09/16/2024 3:14 AM SECURITY SYSTEMS INTEGRATOR) [facility] Sodium 138 135 - 145 mmol/L Potassium, pl 4.0 3.3 - 4.9 mmol/L [facility] Chloride 103 97 - 110 mmol/L [facility] CO2 26 22 - 32 mmol/L [facility] Anion gap 9 2 - 15 mmol/L [facility] BUN 24 6 - 25 mg/dL [facility] Creatinine 0.65 0.60 - 1.10 mg/dL [facility] Glucose 111 70 - 199 mg/dL [facility] Comment: Interpretive Data Fasting glucose >/= [...] 2022. Calcium 9.3 8.5 - 10.3 mg/dL [facility] Blood 09/16/2024 3:14 AM SECURITY SYSTEMS INTEGRATOR 09/16/2024 3:17 AM SECURITY SYSTEMS INTEGRATOR Lore ARAUJO LAB BLOOD ORDERABLES Final Result Performing Organization Address [facility]/ZIP Co de Phone Number [address] [place] [address] * eGFR (09/15/2024 7:54 AM SECURITY SYSTEMS INTEGRATOR) eGFR 84 >=60 mL/min/1. 73 m2 Comment: [...] last reviewed 2021. Blood 09/15/2024 7:54 AM SECURITY SYSTEMS INTEGRATOR 09/15/2024 8:06 AM SECURITY SYSTEMS INTEGRATOR Lore ARAUJO LAB BLOOD ORDERABLES Final Result [address] [address] * Hemoglobin and hematocrit (09/15/2024 7:54 AM SECURITY SYSTEMS INTEGRATOR) [facility] Hgb 13.7 11.9 - 15.5 g/dL Hct 43.2 35.6 - 45.5 % [facility] Blood 09/15/2024 7:54 AM SECURITY SYSTEMS INTEGRATOR 09/15/2024 8:06 AM SECURITY SYSTEMS INTEGRATOR Lore ARAUJO LAB BLOOD ORDERABLES Final Result [address] [address] * Basic metabolic panel (09/15/2024 7:54 AM SECURITY SYSTEMS INTEGRATOR) [facility] Sodium 139 135 - 145 mmol/L Potassium, pl 4.5 3.3 - 4.9 mmol/L [facility] Chloride 101 97 - 110 mmol/L [facility] CO2 30 22 - 32 mmol/L [facility] Anion gap 8 2 - 15 mmol/L [facility] BUN 17 6 - 25 mg/dL [facility] Creatinine 0.75 0.60 - 1.10 mg/dL [facility] Glucose 107 70 - 199 mg/dL [facility] Comment: Interpretive Data Fasting glucose >/= [...] 2022. Calcium 9.3 8.5 - 10.3 mg/dL [facility] Blood 09/15/2024 7:54 AM SECURITY SYSTEMS INTEGRATOR 09/15/2024 8:06 AM SECURITY SYSTEMS INTEGRATOR Lore ARAUJO LAB BLOOD ORDERABLES Final Result [facility] [address] [facility] Department [place] [address] * eGFR (09/14/2024 5:19 AM SECURITY SYSTEMS INTEGRATOR) [facility] eGFR 79 >=60 mL/min/1. 73 m2 Comment: [...] data was last reviewed 2021. Blood 09/14/2024 5:1 9 AM SECURITY SYSTEMS INTEGRATOR 09/14/2024 6:02 AM SECURITY SYSTEMS INTEGRATOR us Lore ARAUJO LAB BLOOD ORDERABLES Final Result [facility] [address] [facility] Department [place] [address] * Differential, auto (09/14/2024 5:19 AM SECURITY SYSTEMS INTEGRATOR) Neutrophil abs 3.5 1.5 - 6.5 K/cumm Imm gran abs 0.0 0.0 - 0.1 K/cumm [facility] Lymphocyte abs 1.1 0.8 - 3.3 K/cumm [facility] Monocyte abs 0.7 0.2 - 0.8 K/cumm [facility] Eosinophil abs 0.3 0.0 - 0.5 K/cumm [facility] Basophil abs 0.1 0.0 - 0.1 K/cumm [facility] Neutrophil pct 62.5 % [facility] Comment: Interpretive Data Percent cell count reference ranges are not reported, since discordance with absolute values may lead to misinterpretation of CBC data. Current Interpretive Data was last revised on 2017. Imm gran pct 0.5 % [facility] Comment: Interpretive Data Percent cell count reference ranges are not reported, since discordance with absolute values may lead to misinterpretation of CBC data. Current Interpretive Data was last revised on 2017. Lymphocyte pct 19.4 % [facility] Comment: Interpretive Data Percent cell count reference ranges are not reported, since discordance with absolute values may lead to misinterpretation of CBC data. Current Interpretive Data was last revised on 2017. Monocyte pct 12.1 % [facility] Comment: Interpretive Data Percent cell count reference ranges are not reported, since discordance with absolute values may lead to misinterpretation of CBC data. Current Interpretive Data was last revised on 2017. Eosinophil pct 4.4 % [facility] Comment: Interpretive Data Percent cell count reference ranges are not reported, since discordance with absolute values may lead to misinterpretation of CBC data. Current Interpretive Data was last revised on 2017. Basophil pct 1.1 % [facility] Comment: Interpretive Data Percent cell count reference ranges are not reported, since discordance with absolute values may lead to misinterpretation of CBC data. Current Interpretive Data was last revised on 2017. Blood 09/14/2024 5:19 AM SECURITY SYSTEMS INTEGRATOR 09/14/2024 6:02 AM SECURITY SYSTEMS INTEGRATOR us Miki Rodriguez MD LAB BLOOD ORDERABLES Final R esult [facility] [address] [facility] Department [place] [address] * (ABNORMAL) CBC with auto differential (09/14/2024 5:19 AM SECURITY SYSTEMS INTEGRATOR) WBC 5.6 3.8 - 9.9 K/cumm Hgb 13.0 11.9 - 15.5 g/dL [facility] Hct 41.2 35.6 - 45.5 % [facility] Plt 120(L) 150 - 400 K/cumm [facility] MPV 12.2 9.1 - 12.3 fL [facility] RBC 4.45 3.90 - 5.20 M/cumm [facility] MCV 92.6 81.3 - 96.4 fL [facility] MCH 29.2 27.1 - 33.3 pg [facility] MCHC 31.6(L) 32.3 - 35.7 g/dL [facility] RDW CV 15.5(H) 11.1 - 14.9 % [facility] RDW SD 52.1(H) 35.7 - 48.1 fL [facility] NRBC abs 0.00 0.00 - 0.01 K/cumm [facility] Blood 09/14/2024 5:19 AM SECURITY SYSTEMS INTEGRATOR 09/14/2024 6:02 AM SECURITY SYSTEMS INTEGRATOR Miki Rodriguez MD LAB BLOOD ORDERABLES Final R esult Performing Organization Address [facility] Co de Phone Number [address] [address] * Basic metabolic panel (09/14/2024 5:19 AM SECURITY SYSTEMS INTEGRATOR) [facility] Sodium 139 135 - 145 mmol/L Potassium, pl 4.1 3.3 - 4.9 mmol/L [facility] Chloride 101 97 - 110 mmol/L [facility] CO2 29 22 - 32 mmol/L [facility] Anion gap 9 2 - 15 mmol/L [facility] BUN 20 6 - 25 mg/dL [facility] Creatinine 0.79 0.60 - 1.10 mg/dL [facility] Glucose 107 70 - 199 mg/dL [facility] Comment: Interpretive Data Fasting glucose >/= [...] 2022. Calcium 8.9 8.5 - 10.3 mg/dL [facility] Blood 09/14/2024 5:19 AM SECURITY SYSTEMS INTEGRATOR 09/14/2024 6:02 AM SECURITY SYSTEMS INTEGRATOR Lore ARAUJO LAB BLOOD ORDERABLES Final Result Performing Organization Address City/[facility]/ZIP Co de Phone Number [facility] [address] [place] [address] [place] [address] * eGFR (09/13/2024 5:14 AM SECURITY SYSTEMS INTEGRATOR) eGFR 85 >=60 mL/min/1. 73 m2 Comment: [...] last reviewed 2021. Blood 09/13/2024 5:14 AM SECURITY SYSTEMS INTEGRATOR 09/13/2024 5:31 AM SECURITY SYSTEMS INTEGRATOR us Miki Rodriguez MD LAB BLOOD ORDERABLES Final R esult [facility] [address] [facility] Department [place] [address] * Differential, auto (09/13/2024 5:14 AM SECURITY SYSTEMS INTEGRATOR) Pathologist [facility] Neutrophil abs 4.2 1.5 - 6.5 K/cumm Imm gran abs 0.0 0.0 - 0.1 K/cumm [facility] Lymphocyte abs 1.1 0.8 - 3.3 K/cumm [facility] Monocyte abs 0.6 0.2 - 0.8 K/cumm [facility] Eosinophil abs 0.2 0.0 - 0.5 K/cumm [facility] Basophil abs 0.1 0.0 - 0.1 K/cumm [facility] Neutrophil pct 67.6 % [facility] Comment: Interpretive Data Percent cell count reference ranges are not reported, since discordance with absolute values may lead to misinterpretation of CBC data. Current Interpretive Data was last revised on 2017. Imm gran pct 0.5 % [facility] Comment: Interpretive Data Percent cell count reference ranges are not reported, since discordance with absolute values may lead to misinterpretation of CBC data. Current Interpretive Data was last revised on 2017. Lymphocyte pct 17.3 % [facility] Comment: Interpretive Data Percent cell count reference ranges are not reported, since discordance with absolute values may lead to misinterpretation of CBC data. Current Interpretive Data was last revised on 2017. Monocyte pct 9.9 % [facility] Comment: Interpretive Data Percent cell count reference ranges are not reported, since discordance with absolute values may lead to misinterpretation of CBC data. Current Interpretive Data was last revised on 2017. Eosinophil pct 3.9 % [facility] Comment: Interpretive Data Percent cell count reference ranges are not reported, since discordance with absolute values may lead to misinterpretation of CBC data. Current Interpretive Data was last revised on 2017. Basophil pct 0.8 % [facility] Comment: Interpretive Data Percent cell count reference ranges are not reported, since discordance with absolute values may lead to misinterpretation of CBC data. Current Interpretive Data was last revised on 2017. Blood 09/13/2024 5:14 AM SECURITY SYSTEMS INTEGRATOR 09/13/2024 5:31 AM SECURITY SYSTEMS INTEGRATOR us Miki Rodriguez MD LAB BLOOD ORDERABLES Final R esult [facility] [address] [facility] Department [place] [address] * (ABNORMAL) CBC with auto differential (09/13/2024 5:14 AM SECURITY SYSTEMS INTEGRATOR) WBC 6.1 3.8 - 9.9 K/cumm Hgb 12.5 11.9 - 15.5 g/dL [facility] Hct 40.0 35.6 - 45.5 % [facility] Plt 119(L) 150 - 400 K/cumm [facility] MPV 12.4(H) 9.1 - 12.3 fL [facility] RBC 4.32 3.90 - 5.20 M/cumm [facility] MCV 92.6 81.3 - 96.4 fL [facility] MCH 28.9 27.1 - 33.3 pg [facility] MCHC 31.3(L) 32.3 - 35.7 g/dL [facility] RDW CV 15.4(H) 11.1 - 14.9 % [facility] RDW SD 52.1(H) 35.7 - 48.1 fL [facility] NRBC abs 0.00 0.00 - 0.01 K/cumm [facility] Blood 09/13/2024 5:14 AM SECURITY SYSTEMS INTEGRATOR 09/13/2024 5:31 AM SECURITY SYSTEMS INTEGRATOR Miki Rodriguez MD LAB BLOOD ORDERABLES Final R esult Performing Organization Address [facility] Co de Phone Number [address] [place] [address] * Erythrocyte sedimentation rate (09/13/2024 5:14 AM SECURITY SYSTEMS INTEGRATOR) Erythrocyte sedimentation rate 22 1 - 30 mm/hr Blood 09/13/2024 5:14 AM SECURITY SYSTEMS INTEGRATOR 09/13/2024 5:31 AM SECURITY SYSTEMS INTEGRATOR Miki Rodriguez MD LAB BLOOD ORDERABLES Final R esult Performing Organization Address [facility] de Phone Number [address] [place] [address] * Vancomycin level trough (09/13/2024 5:14 AM SECURITY SYSTEMS INTEGRATOR) Vancomycin trough 11.1 10.0 - 20.0 mcg/mL Blood 09/13/2024 5:14 AM SECURITY SYSTEMS INTEGRATOR 09/13/2024 5:31 AM SECURITY SYSTEMS INTEGRATOR Poncho Enriquez DO LAB BLOOD ORDERABLES Final Res ult Performing Organization Address [facility] Co de Phone Number [address] [place] [address] * (ABNORMAL) Comprehensive metabolic panel (09/13/2024 5:14 AM SECURITY SYSTEMS INTEGRATOR) Pathologist [facility] [place] Sodium 139 135 - 145 mmol/L Potassium, pl 4.2 3.3 - 4.9 mmol/L [facility] Chloride 103 97 - 110 mmol/L [facility] CO2 28 22 - 32 mmol/L [facility] Anion gap 8 2 - 15 mmol/L [facility] BUN 15 6 - 25 mg/dL [facility] Creatinine 0.74 0.60 - 1.10 mg/dL [facility] Glucose 101 70 - 199 mg/dL [facility] Comment: Interpretive Data Fasting glucose >/= [...] 2022. Calcium 9.2 8.5 - 10.3 mg/dL [facility] Bilirubin, total 0.3 0.1 - 1.2 mg/dL [facility] Protein, pl 6.1(L) 6.5 - 8.5 g/dL [facility] Albumin 3.5 3.5 - 5.0 g/dL [facility] Alk phos 72 40 - 130 Units/L [facility] ALT 6(L) 7 - 45 Units/L [facility] AST 16 10 - 45 Units/L [facility] Blood 09/13/2024 5:14 AM SECURITY SYSTEMS INTEGRATOR 09/13/2024 5:31 AM SECURITY SYSTEMS INTEGRATOR us Miki Rodriguez MD LAB BLOOD ORDERABLES Final R esult [facility] [address] [facility] Department of Laboratories [place], [place] [id number] * eGFR (09/12/2024 6:17 AM SECURITY SYSTEMS INTEGRATOR) [facility] eGFR 87 >=60 mL/min/1. 73 m2 Comment: [...] last reviewed 2021. Blood 09/12/2024 6:17 AM SECURITY SYSTEMS INTEGRATOR 09/12/2024 6:46 AM SECURITY SYSTEMS INTEGRATOR Lore ARAUJO LAB BLOOD ORDERABLES Final Result Performing Organization Address City/[facility]/ZIP Co de Phone Number [address] [place] [place], [place] [id number] * Hemoglobin and hematocrit (09/12/2024 6:17 AM SECURITY SYSTEMS INTEGRATOR) Hgb 12.5 11.9 - 15.5 g/dL Hct 40.1 35.6 - 45.5 % [facility] Blood 09/12/2024 6:17 AM SECURITY SYSTEMS INTEGRATOR 09/12/2024 6:46 AM SECURITY SYSTEMS INTEGRATOR Lore ARAUJO LAB BLOOD ORDERABLES Final Result [address] [place] [address] * (ABNORMAL) Hemoglobin A1c (09/12/2024 6:17 AM SECURITY SYSTEMS INTEGRATOR) Hgb A1C 6.2(H) 4.0 - 5.6 % Estimated Average Glucose 131 mg/dL [facility] Comment: The ADA recommends reporting an estimated Average Glucose (eAG) with all Hemoglobin A1c results using the equation derived from a study of 507 normal and diabetic adults. Minority populations were underrepresented and children were not included. (Diabetes Care 31:0853-2122, 2008). The eAG is not equivalent to a fasting glucose. Blood 09/12/2024 6:17 AM SECURITY SYSTEMS INTEGRATOR 09/12/2024 6:46 AM SECURITY SYSTEMS INTEGRATOR Poncho Enriquez DO LAB BLOOD ORDERABLES Final Res ult [facility] [address] [facility] Department of Laboratories [place], [place] [id number] * Basic metabolic panel (09/12/2024 6:17 AM SECURITY SYSTEMS INTEGRATOR) Sodium 140 135 - 145 mmol/L Potassium, pl 4.5 3.3 - 4.9 mmol/L [facility] Chloride 104 97 - 110 mmol/L [facility] CO2 28 22 - 32 mmol/L [facility] Anion gap 8 2 - 15 mmol/L [facility] BUN 14 6 - 25 mg/dL [facility] Creatinine 0.73 0.60 - 1.10 mg/dL [facility] Glucose 97 70 - 199 mg/dL [facility] Comment: Interpretive Data Fasting glucose >/= [...] 2022. Calcium 9.1 8.5 - 10.3 mg/dL [facility] Blood 09/12/2024 6:17 AM SECURITY SYSTEMS INTEGRATOR 09/12/2024 6:46 AM SECURITY SYSTEMS INTEGRATOR Lore Vinita Liljegren PA LAB BLOOD ORDERABLES Final Result Performing Organization Address [facility] Co de Phone Number [address] [place] [address] * POCT glucose (09/11/2024 8:17 PM SECURITY SYSTEMS INTEGRATOR) [facility] Glucose, POC 157 70 - 199 mg/dL Glucose comment 1 Use This Result [facility] Blood 09/11/2024 8:17 PM SECURITY SYSTEMS INTEGRATOR 09/11/2024 8:17 PM SECURITY SYSTEMS INTEGRATOR Poncho Enriquez DO LAB POCT ORDERABLES - DEVICE F inal Result Performing Organization Address [facility] Co de Phone Number [address] [place] [address] * (ABNORMAL) Vancomycin level trough (09/11/2024 7:15 PM SECURITY SYSTEMS INTEGRATOR) [facility] Vancomycin trough <4.0(L) 10.0 - 20.0 mcg/mL Blood 09/11/2024 7:15 PM SECURITY SYSTEMS INTEGRATOR 09/11/2024 7:39 PM SECURITY SYSTEMS INTEGRATOR Poncho Enriquez DO LAB BLOOD ORDERABLES Final Res ult Performing Organization Address [facility] Co de Phone Number [address] [address] * eGFR (09/11/2024 6:42 PM SECURITY SYSTEMS INTEGRATOR) [facility] eGFR >90 >=60 mL/min/1. 73 m2 Comment: [...] last reviewed 2021. Blood 09/11/2024 6:42 PM SECURITY SYSTEMS INTEGRATOR 09/11/2024 7:11 PM SECURITY SYSTEMS INTEGRATOR Romi Rodriguez NP LAB BLOOD ORDERABLES Final Re sult [facility] [address] [facility] Department of Laboratories [place], [place] [id number] * Differential, auto (09/11/2024 6:42 PM SECURITY SYSTEMS INTEGRATOR) Pathologist [facility] [place] Neutrophil abs 4.7 1.5 - 6.5 K/cumm Imm gran abs 0.0 0.0 - 0.1 K/cumm [facility] Lymphocyte abs 1.4 0.8 - 3.3 K/cumm [facility] Monocyte abs 0.6 0.2 - 0.8 K/cumm [facility] Eosinophil abs 0.2 0.0 - 0.5 K/cumm [facility] Basophil abs 0.1 0.0 - 0.1 K/cumm [facility] Neutrophil pct 67.2 % [facility] Comment: Interpretive Data Percent cell count reference ranges are not reported, since discordance with absolute values may lead to misinterpretation of CBC data. Current Interpretive Data was last revised on 2017. Imm gran pct 0.3 % [facility] Comment: Interpretive Data Percent cell count reference ranges are not reported, since discordance with absolute values may lead to misinterpretation of CBC data. Current Interpretive Data was last revised on 2017. Lymphocyte pct 19.4 % [facility] Comment: Interpretive Data Percent cell count reference ranges are not reported, since discordance with absolute values may lead to misinterpretation of CBC data. Current Interpretive Data was last revised on 2017. Monocyte pct 9.0 % [facility] Comment: Interpretive Data Percent cell count reference ranges are not reported, since discordance with absolute values may lead to misinterpretation of CBC data. Current Interpretive Data was last revised on 2017. Eosinophil pct 3.4 % [facility] Comment: Interpretive Data Percent cell count reference ranges are not reported, since discordance with absolute values may lead to misinterpretation of CBC data. Current Interpretive Data was last revised on 2017. Basophil pct 0.7 % [facility] Comment: Interpretive Data Percent cell count reference ranges are not reported, since discordance with absolute values may lead to misinterpretation of CBC data. Current Interpretive Data was last revised on 2017. Blood 09/11/2024 6:42 PM SECURITY SYSTEMS INTEGRATOR 09/11/2024 7:11 PM SECURITY SYSTEMS INTEGRATOR Romi Rodriguez NP LAB BLOOD ORDERABLES Final Re sult [facility] [address] [facility] Department [place] [address] * (ABNORMAL) CBC with auto differential (09/11/2024 6:42 PM SECURITY SYSTEMS INTEGRATOR) WBC 7.0 3.8 - 9.9 K/cumm Hgb 12.9 11.9 - 15.5 g/dL [facility] Hct 41.9 35.6 - 45.5 % [facility] Plt 136(L) 150 - 400 K/cumm [facility] MPV 12.6(H) 9.1 - 12.3 fL [facility] RBC 4.50 3.90 - 5.20 M/cumm [facility] MCV 93.1 81.3 - 96.4 fL [facility] MCH 28.7 27.1 - 33.3 pg [facility] MCHC 30.8(L) 32.3 - 35.7 g/dL [facility] RDW CV 15.3(H) 11.1 - 14.9 % [facility] RDW SD 52.0(H) 35.7 - 48.1 fL [facility] NRBC abs 0.00 0.00 - 0.01 K/cumm [facility] Blood 09/11/2024 6:42 PM SECURITY SYSTEMS INTEGRATOR 09/11/2024 7:11 PM SECURITY SYSTEMS INTEGRATOR Romi Rodriguez NP LAB BLOOD ORDERABLES Final Re sult Performing Organization Address City/[facility]/ZIP Co de Phone Number [facility] [address] [place] [address] * Basic metabolic panel (09/11/2024 6:42 PM SECURITY SYSTEMS INTEGRATOR) Sodium 141 135 - 145 mmol/L Potassium, pl 4.3 3.3 - 4.9 mmol/L [facility] Chloride 105 97 - 110 mmol/L [facility] CO2 27 22 - 32 mmol/L [facility] Anion gap 9 2 - 15 mmol/L [facility] BUN 13 6 - 25 mg/dL [facility] Creatinine 0.64 0.60 - 1.10 mg/dL [facility] Glucose 131 70 - 199 mg/dL [facility] Comment: Interpretive Data Fasting glucose >/= [...] 2022. Calcium 8.7 8.5 - 10.3 mg/dL [facility] Blood 09/11/2024 6:42 PM SECURITY SYSTEMS INTEGRATOR 09/11/2024 7:11 PM SECURITY SYSTEMS INTEGRATOR Romi Rodriguez NP LAB BLOOD ORDERABLES Final Re sult [facility] [place] [address] * POCT glucose (09/11/2024 6:04 PM SECURITY SYSTEMS INTEGRATOR) Glucose, POC 105 70 - 199 mg/dL Glucose comment 1 Use This Result [facility] Blood 09/11/2024 6:04 PM SECURITY SYSTEMS INTEGRATOR 09/11/2024 6:04 PM SECURITY SYSTEMS INTEGRATOR Poncho Enriquez DO LAB POCT ORDERABLES - DEVICE F inal Result Performing Organization Address City/[facility]/ZIP Co de Phone Number [facility] [address] [facility] Department [place] [address] * FL Fluoroscopy < 1 Hour (09/11/2024 4:00 PM SECURITY SYSTEMS INTEGRATOR) Narrative HOSEA_[email or web address]_[facility] - 09/11/2024 5:59 PM SECURITY SYSTEMS INTEGRATOR The images from this study are not interpreted by Radiology. Please refer to the physician's procedure / OR operative note. Poncho Enriquez DO IMG FLUOROSCOPY PROCEDURES Fin al Result Performing Organization Address [facility] Co de Phone Number [email or web address] * (ABNORMAL) Aerobic and anaerobic culture and gram stain Abscess Toe, fifth, right (09/11/2024 3:45 PM SECURITY SYSTEMS INTEGRATOR) Direct Specimen Exam Stain: No polymorphonuclear leukocytes seen. No organisms seen. Comment:Testing performed by : [facility], [address] [place]., [address] Report Final Report: Few Mixed anaerobic microorganisms (.) KEN Comment:Testing performed by : [facility], [address] [place]., [address] Organism MIXED ANAEROBIC MICROORGANISMS KEN Abscess (Toe, fifth, right) 09/11/2024 3:45 PM SECURITY SYSTEMS INTEGRATOR 09/11/2024 5:50 PM SECURITY SYSTEMS INTEGRATOR Narrative KEN - 09/14/2024 12:17 PM SECURITY SYSTEMS INTEGRATOR Fifth proximal phalanx swab #2 for culture Testing performed by [facility] ([phone]) Specimens submitted from normally sterile body sites [...] data was last revised on 2019. [facility] - GENERAL ORD ERABLES Final Result Performing Organization Address [facility] Co de Phone Number KEN [address] [facility] [place] [address] * (ABNORMAL) Aerobic and anaerobic culture and gram stain Abscess Toe, fifth, right (09/11/2024 3:44PM SECURITY SYSTEMS INTEGRATOR) Direct Specimen Exam Stain: Moderate polymorphonuclear leukocytes seen. No organisms seen. Comment:Testing performed by : [facility], [address] [place]., [address] Report Final Report: Few Mixed anaerobic microorganisms (.) KEN Comment:Testing performed by : [facility], [address] [place]., [address] Organism MIXED ANAEROBIC MICROORGANISMS KEN Abscess (Toe, fifth, right) 09/11/2024 3:44 PM SECURITY SYSTEMS INTEGRATOR 09/11/2024 5:49 PM SECURITY SYSTEMS INTEGRATOR Narrative KEN - 09/14/2024 12:17 PM SECURITY SYSTEMS INTEGRATOR Fifth proximal phalanx swab #1 for culture Testing performed by [facility] ([phone]) Specimens submitted from normally sterile body sites [...] data was last revised on 2019. Poncho Enriquez LAB MICROBIOLOGY - GENERAL ORD ERABLES Final Result Performing Organization Address [facility] Co de Phone Number KEN [address] [facility] Department [place] [address] * (ABNORMAL) Tissue aerobic and anaerobic culture and gram stain Bone Toe, fifth, right (09/11/2024 3:39 PM SECURITY SYSTEMS INTEGRATOR) Direct Specimen Exam Stain: No polymorphonuclear leukocytes seen. No organisms seen. Comment:Testing performed by : [facility], [address] [place]., [address] Report Final Report: Few Mixed aerobic and anaerobic microorganisms (.) [facility] Comment:Testing performed by : [facility], [address] [place]., [address] Organism MIXED AEROBIC AND ANAEROBIC MICROORGANISMS [facility] Bone (Toe, fifth, right) 09/11/2024 3:39 PM SECURITY SYSTEMS INTEGRATOR 09/11/2024 5:52 PM SECURITY SYSTEMS INTEGRATOR Narrative [facility] - 09/23/2024 3:27 PM SECURITY SYSTEMS INTEGRATOR Fifth proximal biopsy phalanx for bone culture Testing performed by [facility] ([phone]) Specimens submitted from normally sterile body sites [...] interpretive data was last revised on 2019. us Poncho Enriquez DO LAB MICROBIOLOGY - GENERAL ORD ERABLES Final Result [facility] [address] [facility] [place] [address] * Colonoscopy (05/16/2024 10:08 AM CDT) Anatomical Region Laterality Modality Other Narrative Procedure Note Rodger Tripp MD - 05/16/2024 10:08 AM CDT ENDOSCOPY LAB Patient Name: Kendra Flores Procedure Date: 05/16/2024 10:08 AM Date of : 1950 Admit Type: Outpatient Age: 73 Gender: Female Attending MD: Rodger Tripp M.D. Room: [facility] ENDOSCOPY ROOM 04 Note Status: Finalized [...] The scope was passed under direct vision.The [id number] was introduced through the anusand advanced to [...] Most Recently Relevant to Health Maintenance Insurance [employer] MEDICARE [facility] MED[facility] Address: [facility] [address] [place] [address] [employer] MEDICARE ADVANTAGE [facility] MEDICARE Advance Directives For more information, please contact: [phone] Documents on File Type Date Recorded Patient Geodetic Advisor Expl anation ADVANCE DIRECTIVE 11/07/2011 12:00 AM POWER OF MARINE 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 FINANCIAL/MEDICAL * Full Code (Latest Code Status on File) Date Activated Date Inactivated Comments 09/11/2024 6:16 PM 09/17/2024 7:51 PM * Full Code Date Activated Date Inactivated Comments 05/16/2024 9:32 AM 05/16/2024 3:46 PM Care Teams Registration Representative Relationship Specialty Start Date End Date Gerardo Dixon DO [address] [facility] [address] [place], [place] [id number] PCP - General Internal Medicine 05/09/24 Sofia Roper MD Urologist Urology 10/30/18 Fabian Lizama MD Referring Physician Pulmonary Disease 04/01/20 Giorgi Beyer MD [address] [facility] [address] [address] Consulting Physician Cardiovascular Disease 08/30/24 Lore Richardson PA [address] [facility] [address] [place] [address] Orthopedic Surgery 09/11/24
--- OUTSIDE RECORDS SUMMARY | 2024-11-30 15:13 | XMS_ITS | Clinical Summary ---
Author Organization [facility] Address [address] [place] [address] Care Team Providers Care Seismometer Operator Name Role Phone Tony Morgan DO Primary Care Provider [phone] Source Comments [facility],non-owned Affiliates and Associated Physician Practices is amultiple site organization consisting of ambulatory clinics and hospital sitesin [place], [place], [place] and [place]. This disclosure is being madepursuant to the Care Everywhere program and may not contain all information available regarding this patient. Last updated 18.[facility] Allergies Active Allergy Reactions Criticality Noted Date Comments Moxifloxacin Dizziness High 04/06/2018 Clarithromycin Nausea and/or Vomiting 8 Plus pain and diarrhea Meperidine Nausea and/or Vomiting 04/05/2018 And headache Latex Shortness of Breath High 04/05/2018 and rash Levofloxacin Other 04/05/2018 Tendon problem Medications * Be aware that medications may not be up to date on this document. Alwaysverify current medications with the patient. potassium chloride (KLOR-CON M) 10 MEQ tablet Take 10 mEq by mouth 2 times daily Active furosemide (LASIX) 20 MG tablet Take 20 mg by mouth once daily Active losartan (COZAAR) 100 MG tablet Take 100 mg by mouth at bedtime Active acetaminophen (TYLENOL) 500 MG tablet Take 500 mg by mouth every 4 hours as needed for Pain (back) Maximum allowable Acetaminophen amount = 4 Grams (4000 mg) / 24 hours. Active calcium-vitami n D (OS-LUIS EDUARDO 250 PLUS D 125 UNITS) 250-125 MG-UNIT tablet Take 1 tablet by mouth daily with food Active loratadine (CLARITIN) 10 MG tablet Take 10 mg by mouth once daily as needed for Allergies Active guaiFENesin ER 12hr (MUCINEX) 600 MG tablet Take 600 mg by mouth every 12 hours as needed for Cough Active Active Problems Problem Noted Date Diagnosed Date Mass of left lung 03/28/2018 Social History Tobacco Use Types Packs/Day Years Used Date Smoking Tobacco: Never Smokeless Tobacco: Never Alcohol Use Standard Drinks/Week Comments Yes 2 (1 standard drink = 0.6 oz pur e alcohol) one drink weekly Comments Unknown Sex and Gender Information Value Date Recorded Sex Assigned at Female 08/26/2021 3:27 PM [facility] Legal Sex Female 3:35 PM CDT Gender Identity Not on file Sexual Orientation Not on file Last Filed Vital Signs Vital Sign Reading Time Taken Comments Blood Pressure 166/70 04/06/2018 2:44 PM CDT Pulse 69 04/06/2018 2:44 PM CDT Temperature 36.4 C (97.5 F) 04/06/2018 10:17 AM CDT Respiratory Rate 17 04/06/2018 2:44 PM CDT Oxygen Saturation 100% 04/06/2018 2:44 PM CDT Inhaled Oxygen Concentration - - Weight 108.9 kg (240 lb) 04/06/2018 11:10 AM CDT Height 165.1 cm (5' 5 ) 04/06/2018 11:10 AM CDT Body Mass Index 39.94 04/06/2018 11:10 AM CDT Plan of Treatment Health Maintenance Due Date Last Done Comments BONE DENSITY TESTING 1950 COLOGUARD (AGES 45-75) - COL ON CA SCREENING 1950 COLON MONITORING 1950 COLONOSCOPY - COLON CA SCREENING 1950 CT COLONOGRAPHY - COLON CA SCREENING 1950 Colorectal Cancer Screening 1950 FIT - COLON CA SCREENING 1950 FLEX SIG - COLON CA SCREENING 1950 LIPID TESTING 1950 MAMMOGRAM 1950 HEPATITIS C SCREENING 10/08/1968 DTAP/TDAP/TD VACCINES (1 - Tdap) 1969 PNEUMOCOCCAL VACCINE 50+ (1 of 1 - PCV) 2000 ZOSTER VACCINE (1 of 2) 2000 COVID-19 VACCINE (2023-2 5 season) 2024 DEPRESSION SCREENING 08/08/2024 INFLUENZA VACCINE (Season Ended) 2025 Respiratory Syncytial Virus (RSV) Vaccine Pt: or over 60 yrs (1 - 1-dose 75+ series) 2025 HEPATITIS B VACCINE Aged Out No longe r eligible based on patient's age to complete this topic HIB VACCINE Aged Out No longer eligi ble based on patient's age to complete this topic HPV VACCINE Aged Out No longer eligi ble based on patient's age to complete this topic MENINGOCOCCAL (Group B) VACC INE SHARED DECISION-MAKING Aged Out No longer eligibl e based on patient's age to complete this topic MENINGOCOCCAL GROUPS A/C/Y/W VACCINE Aged Out No longer eligible b ased on patient's age to complete this topic Insurance MANAGED MEDICARE ADV [facility]ICARE [facility] Care Teams Seismometer Operator Relationship Specialty Start Date End Date Tony Morgan DO [address] [place], [place] [id number] PCP - General Internal Medicine 02/06/15
== END 2024-11-30 15:10 | disposition home or self-care (01) ==
PROVIDERS: PCP Internal Medicine; Visit Provider Nurse Practitioner
DX: I82.412 Acute embolism and thrombosis of left femoral vein (principal)
CPT/HCPCS: 93970